=== PATIENT | female | born 1970 | race Caucasian/White ===

== ENCOUNTER 2020-01-11 20:08 | Emergency (ER) | payer OTHER, SELFPAY ==
[2020-01-11 21:18] VITALS: BP 131/85; PULSE 73; RESP 18; TEMP 37.6; O2SAT 94; BMI 46.7
--- NOTE | 2020-01-11 23:09 | ED_ITS ---
HPI - Asthma General Chief Complaint: Asthma Stated Complaint: ASTHMA Time Seen by Provider: 01/11/20 23:09 Source: patient Mode of arrival: ambulatory Limitations: no limitations History of Present Illness MD complaint: asthma attack and wheezing Onset (ago): day(s) (3) Severity: moderate Context: cleaning product exposure Associated symptoms: dry cough Asthma History: childhood onset Treatments Prior to Arrival: inhaled bronchodilator and inhaled steroid Related Data Current Asthma Therapy: inhaled bronchodilator Previous Rx's Medication Instructions Recorded prednisone 60 mg PO DAILY 5 Days #15 tab 01/11/20 Allergies Allergy/AdvReac Type Severity Reaction Status Date / Time peanut [PEANUT] Allergy Severe ANAPHYAXIS Unverified 12/06/19 19:35 Penicillins [PENICILLINS] Allergy Intermediate HIVES Unverified 12/06/19 19:35 latex [LATEX] Allergy Unknown HIVES, Unverified 12/06/19 19:35 SWELLING metronidazole [From FLAGYL] Allergy Unknown UNK Unverified 12/06/19 19:35 Review of Systems Review of Systems: Constitutional : No Fever, No Chills ENT/Mouth : No Hoarseness, No sore throat, No Rhinorrhea Eyes: No Redness, No Discharge, No Vision Changes Cardiovascular : No Chest Pain, positive SOB, positive Dyspnea on Exertion, No Edema Respiratory : positive Cough, No Sputum, positive Wheezing, Gastrointestinal : No Nausea, No Vomiting, No Diarrhea, No abdominal Pain Genitourinary : No Dysuria, No Hematuria Musculoskeletal : No joint pain, No Myalgias Skin : No rash Neuro : No Weakness, No Numbness, No Headache Psych : No anxiety, depression Heme/Lymph: No Bruising, No Bleeding Endocrine : No Polyuria, No Polydipsia All other systems reviewed and are negative [facility] Past Medical History Attestation statement: The following information was validated with the patient. Medical History Anxiety Asthma Hypothyroidism Social History Social History (Updated 01/11/20 @ 23:16 by Amie Strong DO) Alcohol intake: never Smoking Status: Former smoker Use of substances other than those prescribed or required for medical reasons: No Advance Directives: No Advance Directives Information Provided: No Physical Exam Vital Signs: Vital Signs: Vital Signs Temp Pulse Resp BP Pulse Ox 01/12/20 00:27 78 20 114/69 100 01/11/20 21:18 99.6 F 73 18 131/85 94 Body Mass Index 46.7 Appearance: Alert. Oriented X3. mild acute distress. Eyes: Pupils equal, round and reactive to light. ENT: Pharynx normal. Neck: Normal inspection. Neck supple. CVS: Normal heart rate and rhythm. Pulses normal. Respiratory: mild respiratory distress. Breath sounds decreased, moderate end exp wheezes Abdomen: Soft and nontender. Skin: Skin warm and dry. Normal skin color. Normal skin turgor. Extremities: No lower extremity edema. No calf ttp Neuro: Oriented X 3. No motor deficit. No sensory deficit. Course Course Course Narrative: negative CXR< no fevers, no infectious symptoms, chronically elevated WBC count in past 97% on RA, the patient is much improved and feels good, stable for DC home MDM - Asthma MDM Narrative Medical decision making narrative: 49 yo female with asthma triggered by cleaning products, will need labs, CXR, IV steroids, hour long 10mg neb, IV magnesium - dispo per results and improvement Lab Data Result diagrams: 01/12/20 00:24 01/11/20 23:46 Labs: Lab Results 01/11/20 01/11/20 01/11/20 Range/Units 23:29 23:46 23:46 WBC Cancelled RBC Cancelled Hgb Cancelled Hct Cancelled MCV Cancelled MCH Cancelled MCHC Cancelled RDW Cancelled Plt Count Cancelled MPV Cancelled Immature Gran % (Auto) Cancelled Neut % (Auto) Cancelled Lymph % (Auto) Cancelled [place] % (Auto) Cancelled Eos % (Auto) Cancelled Baso % (Auto) Cancelled Lymph # (Auto) Cancelled [place] # (Auto) Cancelled Eos # (Auto) Cancelled Baso # (Auto) Cancelled Abs Immat Gran (auto) Cancelled Absolute Neuts (auto) Cancelled Absolute Nucleated RBC Cancelled Nucleated RBC % (auto) Cancelled Hold Blue Top SEE NOTE Sodium 137 (135-145) mmol/L Potassium 4.2 (3.3-5.1) mmol/l Chloride 105 (96-108) mmol/L Carbon Dioxide 21 L (22-29) mmol/L Anion Gap 15 (12-20) BUN 12 (9-16) mg/dL Creatinine 0.78 (0.5-1.4) mg/dL Estim Creat Clear Calc 106.5 Estimated GFR > 60 Random Glucose 91 (60-115) mg/dL Calcium 8.7 (8.4-10.2) mg/dL 01/12/20 Range/Units 00:24 WBC 15.1 H RBC 4.44 Hgb 11.0 L Hct 34.3 L MCV 77.3 L MCH 24.8 L MCHC 32.1 RDW 16.6 H Plt Count 458 H MPV 9.6 Immature Gran % (Auto) 0.3 Neut % (Auto) 64.3 Lymph % (Auto) 17.7 L [place] % (Auto) 8.0 Eos % (Auto) 9.0 H Baso % (Auto) 0.7 Lymph # (Auto) 2.7 [place] # (Auto) 1.2 Eos # (Auto) 1.4 H Baso # (Auto) 0.1 Abs Immat Gran (auto) 0.05 H Absolute Neuts (auto) 9.7 H Absolute Nucleated RBC 0.000 Nucleated RBC % (auto) 0.0 Hold Blue Top Sodium (135-145) mmol/L Potassium (3.3-5.1) mmol/l Chloride (96-108) mmol/L Carbon Dioxide (22-29) mmol/L Anion Gap (12-20) BUN (9-16) mg/dL Creatinine (0.5-1.4) mg/dL Estim Creat Clear Calc Estimated GFR Random Glucose (60-115) mg/dL Calcium (8.4-10.2) mg/dL Critical Care Time Critical Care Time Critical Care Time: Yes Total Critical Care Time: 30 Attestation: I personally attest to this time spent taking care of the patient Discharge Plan Discharge Clinical Impression: Asthma with acute exacerbation Qualifiers: Asthma severity: moderate Asthma persistence: persistent Qualified Code(s): J45.41 - Moderate persistent asthma with (acute) exacerbation Patient Disposition: Home, Self-Care Instructions: Asthma (ED) Prescriptions: New prednisone 20 mg tablet 60 mg PO DAILY 5 Days Qty: 15 RF: 0 Referrals: Carlyn Guitérrez PA [Primary Care Provider] - 2 days (if not better) Stand Alone Forms: Work/School Release
--- NOTE | 2020-01-11 23:14 | XR_ITS ---
EXAMINATION: XR CHEST CLINICAL INFORMATION: Dyspnea COMPARISON: 11/29/2019 TECHNIQUE: Frontal view of the chest was obtained. FINDINGS: Lungs are clear. No focal consolidation or mass. Normal pulmonary vascularity. No pleural effusion or pneumothorax. Normal heart size. No acute osseous abnormality. XR/XR chest 1V IMPRESSION: No acute pulmonary disease.
[2020-01-11] MEDS: Albuterol Sulfate (0.083%) 2.5 MG/3 ML VIAL.NEB 10 MG INHALE (23:36)
[2020-01-11] MEDS: methylPREDNISolone Sod Succ/PF 125 MG/2 ML VIAL 60 MG IVPUSH (23:47)
[2020-01-11] MEDS: Magnesium Sulfate/H2O 2 GM/50 ML PIGGYBACK IV (23:48)
[2020-01-12 00:27] VITALS: BP 114/69; PULSE 78; RESP 20; O2SAT 100
[2020-01-12 00:29] LABS: MANUAL DIFF FLAG NO
[2020-01-12 00:31] LABS: Anion Gap 15 (12-20); Blood Urea Nitrogen 12 mg/dL (9-16); Carbon Dioxide 21 mmol/L (22-29); Chloride 105 mmol/L (96-108); Creatinine Clr Calc Pharmacy 106.5; Estimated Glomerular Filt Rate > 60; Glucose Random 91 mg/dL (60-115); Potassium 4.2 mmol/l (3.3-5.1); Sodium 137 mmol/L (135-145)
[2020-01-12 00:33] LABS: Basophils Absolute Auto 0.1 X10*3/uL (0.0-0.2); Basophils Percent Auto 0.7 % (0-2); Eosinophils Absolute Auto 1.4 X10*3/uL (0.0-0.4); Hematocrit 34.3 % (37-47); Imm Gran Abs Auto 0.05 X10*3/uL (0.00-0.03); Imm Gran Pct Auto 0.3 % (0.0-0.4); Lymphocytes Absolute Auto 2.7 X10*3/uL (1.2-4.9); Lymphocytes Percent Auto 17.7 % (20-40); Mean Corpuscular HGB Conc 32.1 g/dl (31.0-35.0); Mean Corpuscular Hemoglobin 24.8 pg (27.0-33.0); Mean Corpuscular Volume 77.3 fL (80-98); Mean Platelet Volume 9.6 fL (9.4-12.3); Monocytes Absolute Auto 1.2 X10*3/uL (0.1-1.2); Neutrophils Absolute Auto 9.7 X10*3/uL (2.0-8.3); Neutrophils Percent Auto 64.3 % (45-73); Platelet Count 458 X10*3/uL (160-400); Red Blood Count 4.44 X10*6/uL (4.20-5.50); Red Cell Distribution Width 16.6 % (11.0-16.0); White Blood Count 15.1 X10*3/uL (4.8-10.8)
[2020-01-12 00:34] LABS: Calcium 8.7 mg/dL (8.4-10.2)
[2020-01-12 02:00] VITALS: BP 126/61; PULSE 83; RESP 18; TEMP 36.4; O2SAT 99
== END 2020-01-12 02:50 | disposition home or self-care (01) ==
LOC: HO.ED 01-12 00:18
PROVIDERS: Emergency Provider Emergency Medicine; PCP Physician Assistant Medical
DX: J45.41 Moderate persistent asthma with (acute) exacerbation (principal); Z87.891 Personal history of nicotine dependence
CPT/HCPCS: 36415; 71045; 80048; 85025; 96365; 96366; 96375; 99284; 99291; J2930; J3475

== ENCOUNTER 2020-06-01 01:09 | Emergency (ER) | payer OTHER, SELFPAY ==
--- NOTE | ~2020-06-01 | XR_ITS ---
EXAMINATION: XR CHEST CLINICAL INFORMATION: Chest pain COMPARISON: 01/11/2020 TECHNIQUE: Frontal view of the chest was obtained. FINDINGS: Lung volumes are symmetric. No focal consolidation is seen. No evidence of pneumothorax, pleural effusion, or pulmonary edema. The cardiomediastinal contour is unremarkable. No acute osseous findings are seen. XR/XR chest 1V IMPRESSION: No acute cardiopulmonary findings.
[2020-06-01 01:15] VITALS: BP 143/83; PULSE 97; RESP 20; TEMP 36.7; O2SAT 99; BMI 48.5
--- NOTE | 2020-06-01 01:25 | ECG_ITS ---
Test Reason : CP/SOB Blood Pressure : / mmHG Vent. Rate : 092 BPM Atrial Rate : 092 BPM P-R Int : 146 ms QRS Dur : 086 ms QT Int : 354 ms P-R-T Axes : 042 046 038 degrees QTc Int : 437 ms Normal sinus rhythm Normal ECG When compared with ECG of 29-NOV-2019 07:54, No significant change was found Referred By: Tsering Gomez Electronically Signed By:Bucky Oneal
--- NOTE | 2020-06-01 01:43 | PC.NURSE ---
EKG obtained by this RN. 2 IV attempts unsuccessful, biological technical officer to attempt. MD at bedside for primary eval. Plan to medicate with Atarax and monitor labs.
[2020-06-01 03:00] VITALS: BP 143/83; PULSE 90; RESP 18; O2SAT 96
--- NOTE | 2020-06-01 03:00 | ED_ITS ---
HPI - Anxiety General Chief Complaint: Anxiety Stated Complaint: anxiety Time Seen by Provider: 06/01/20 01:25 Source: patient Mode of arrival: EMS History of Present Illness HPI narrative: This is a 49-year-old female who presents via EMS and a past medical history of asthma and thyroid condition who recently found out that her son had attempted to commit suicide by slashing his wrist and was seen and evaluated at [facility] and was admitted for 1 week and then found out on that he was HIV positive. As per the patient he informed her of his status and she became very sad and felt ?overwhelmed? because she is already caring for his 3 children whom all have varying degrees of autism. Patient states that she began feeling as though she was having an asthma attack but denied any chest pain, cough, fevers, chills, GI symptoms. Patient states that she has had another episode of anxiety in May of last year. Related Data Previous Rx's Medication Instructions Recorded prednisone 60 mg PO DAILY 5 Days #15 tab 01/11/20 prednisone 40 mg PO DAILY 4 Days #8 tab 06/01/20 Allergies Allergy/AdvReac Type Severity Reaction Status Date / Time peanut [PEANUT] Allergy Severe ANAPHYAXIS Unverified 12/06/19 19:35 Penicillins [PENICILLINS] Allergy Intermediate HIVES Unverified 12/06/19 19:35 latex [LATEX] Allergy Unknown HIVES, Unverified 12/06/19 19:35 SWELLING metronidazole [From FLAGYL] Allergy Unknown UNK Unverified 12/06/19 19:35 Review of Systems Review of Systems: Pertinent positives and negatives as stated in HPI 10 point review of systems is otherwise negative. PMFSH Past Medical History Source: nursing notes reviewed Medical History Anxiety Asthma Hypothyroidism Social History Social History Alcohol intake: never Smoking Status: Former smoker Advance Directives: No Advance Directives Information Provided: No Physical Exam Vital Signs: Vital Signs: Last Vital Signs Temp 97.7 F 06/01/20 04:00 Pulse 84 06/01/20 06:25 Resp 20 06/01/20 06:25 BP 130/70 06/01/20 04:00 Pulse Ox 93 06/01/20 06:25 Body Mass Index 48.5 VITAL SIGNS: Reviewed. GENERAL: Obese, Well developed, well nourished, mild distress. HEAD: Normocephalic/atraumatic, EYES: PERRLA, EOMI OROPHARYNX: no oral lesions noted, posterior pharynx clear NECK: Supple, no adenopathy LUNGS: Bilateral scattered expiratory wheeze without tachypnea or noted hypoxia or increased work of breathing. SpO2<99> CARDIOVASCULAR: Regular rate and rhythm without noted murmurs, no JVD or lower extremity edema. ABDOMEN: Soft, non-tender, non-distended with bowel sounds. SKIN: Inspection of the skin reveals no rashes NEUROLOGIC: Alert and oriented x 4. Course Course Course Narrative: This is a 49-year-old female with history and clinical presentation anxiety, mild asthma exacerbation, but will rule out cardiopulmonary etiologies, and low clinical suspicion for PE. In addition, patient would like to speak with someone from the crisis team and a consult will be placed. On review of all investigations and re-evaluation there are no acute findings from baseline and patient reports improvement in symptoms and is requesting at this time to be discharged and states she no longer wishes to speak with a lawn specialist as she will pursue that avenue of support through her primary care provider. She states she is feeling much better and denies any SI/HI. MDM - Anxiety Lab Data Result diagrams: 06/01/20 03:12 06/01/20 03:12 Labs: Lab Results 06/01/20 06/01/20 06/01/20 Range/Units 03:12 03:12 03:12 WBC 11.9 H (4.8-10.8) X10*3/uL RBC 4.66 (4.20-5.50) X10*6/uL Hgb 11.4 L (12.0-16.0) g/dl Hct 36.6 L (37-47) % MCV 78.5 L (80-98) fL MCH 24.5 L (27.0-33.0) pg MCHC 31.1 (31.0-35.0) g/dl RDW 16.8 H (11.0-16.0) % Plt Count 444 H (160-400) X10*3/uL MPV 9.3 L (9.4-12.3) fL Immature Gran % (Auto) 0.5 H (0.0-0.4) % Neut % (Auto) 64.9 (45-73) % Lymph % (Auto) 17.6 L (20-40) % [place] % (Auto) 7.2 (2-11) % Eos % (Auto) 9.0 H (0-4) % Baso % (Auto) 0.8 (0-2) % Lymph # (Auto) 2.1 (1.2-4.9) X10*3/uL [place] # (Auto) 0.9 (0.1-1.2) X10*3/uL Eos # (Auto) 1.1 H (0.0-0.4) X10*3/uL Baso # (Auto) 0.1 (0.0-0.2) X10*3/uL Abs Immat Gran (auto) 0.06 H (0.00-0.03) X10*3/uL Absolute Neuts (auto) 7.7 (2.0-8.3) X10*3/uL Absolute Nucleated RBC 0.000 (0.0-0.012) X10*3/uL Nucleated RBC % (auto) 0.0 (0.0-0.2) /100WBC Sodium 140 (135-145) mmol/L Potassium 3.8 (3.3-5.1) mmol/L Chloride 108 (96-108) mmol/L Carbon Dioxide 23 (22-29) mmol/L Anion Gap 13 (12-20) BUN 12 (9-16) mg/dL Creatinine 0.79 (0.5-1.4) mg/dL Estim Creat Clear Calc 107.5 Estimated GFR > 60 Random Glucose 110 (60-115) mg/dL Calcium 9.0 (8.4-10.2) mg/dL Total Bilirubin < 0.2 (0.0-1.0) mg/dL AST 15 (5-31) U/L ALT 17 (0-31) U/L Alkaline Phosphatase 66 (39-117) U/L Troponin I High Sens < 3.5 (<3.5-17.0) ng/L Total Protein 7.1 (6.5-8.0) g/dL Albumin 4.1 (3.5-5.0) g/dL COVID-19 (SEB) (Negative) COVID-19 Clin Com 06/01/20 Range/Units 03:12 WBC (4.8-10.8) X10*3/uL RBC (4.20-5.50) X10*6/uL Hgb (12.0-16.0) g/dl Hct (37-47) % MCV (80-98) fL MCH (27.0-33.0) pg MCHC (31.0-35.0) g/dl RDW (11.0-16.0) % Plt Count (160-400) X10*3/uL MPV (9.4-12.3) fL Immature Gran % (Auto) (0.0-0.4) % Neut % (Auto) (45-73) % Lymph % (Auto) (20-40) % [place] % (Auto) (2-11) % Eos % (Auto) (0-4) % Baso % (Auto) (0-2) % Lymph # (Auto) (1.2-4.9) X10*3/uL [place] # (Auto) (0.1-1.2) X10*3/uL Eos # (Auto) (0.0-0.4) X10*3/uL Baso # (Auto) (0.0-0.2) X10*3/uL Abs Immat Gran (auto) (0.00-0.03) X10*3/uL Absolute Neuts (auto) (2.0-8.3) X10*3/uL Absolute Nucleated RBC (0.0-0.012) X10*3/uL Nucleated RBC % (auto) (0.0-0.2) /100WBC Sodium (135-145) mmol/L Potassium (3.3-5.1) mmol/L Chloride (96-108) mmol/L Carbon Dioxide (22-29) mmol/L Anion Gap (12-20) BUN (9-16) mg/dL Creatinine (0.5-1.4) mg/dL Estim Creat Clear Calc Estimated GFR Random Glucose (60-115) mg/dL Calcium (8.4-10.2) mg/dL Total Bilirubin (0.0-1.0) mg/dL AST (5-31) U/L ALT (0-31) U/L Alkaline Phosphatase (39-117) U/L Troponin I High Sens (<3.5-17.0) ng/L Total Protein (6.5-8.0) g/dL Albumin (3.5-5.0) g/dL COVID-19 (SEB) Negative (Negative) COVID-19 Clin Com See Note ECG Data Attestation: I personally reviewed and interpreted this ECG as follows: Prior ECG tracings: available for review (11/29/2019 no acute changes on co mparison) Interpretation: Normal sinus rhythm, HR-92, no evidence of acute ischemia, RI/QRS/QTC are within normal limits. Discharge Plan Discharge Clinical Impression: Acute anxiety Asthma Qualifiers: Asthma severity: mild Asthma persistence: unspecified Asthma complication type: unspecified Qualified Code(s): J45.909 - Unspecified asthma, uncomplicated Patient Disposition: Home, Self-Care Instructions: Asthma (ED), Anxiety (ED) Additional Instructions: Resume all home medications as prescribed. Please follow-up with your primary care provider in the next 2-3 days. Do not hesitate to return to the emergency department should you experience any worsening of your symptoms. Prescriptions: New prednisone 20 mg tablet 40 mg PO DAILY 4 Days Qty: 8 RF: 0 No Action prednisone 20 mg tablet 60 mg PO DAILY 5 Days Qty: 15 RF: 0 Referrals: Scott Proctor MD [Primary Care Provider] - 2 days (Re-evaluation for anxiety due to current and new stressors in life.)
[2020-06-01] MEDS: hydrOXYzine HCL 25 MG TABLET PO (03:16)
--- NOTE | 2020-06-01 03:17 | PC.NURSE ---
pathological technician at bedside obtaining labs and Covid. Pt medicated per MAY. Continue to monitor.
[2020-06-01 03:20] LABS: MANUAL DIFF FLAG NO
[2020-06-01 03:25] LABS: Basophils Absolute Auto 0.1 X10*3/uL (0.0-0.2); Basophils Percent Auto 0.8 % (0-2); Eosinophils Absolute Auto 1.1 X10*3/uL (0.0-0.4); Hematocrit 36.6 % (37-47); Hemoglobin 11.4 g/dl (12.0-16.0); Imm Gran Abs Auto 0.06 X10*3/uL (0.00-0.03); Imm Gran Pct Auto 0.5 % (0.0-0.4); Lymphocytes Absolute Auto 2.1 X10*3/uL (1.2-4.9); Lymphocytes Percent Auto 17.6 % (20-40); Mean Corpuscular HGB Conc 31.1 g/dl (31.0-35.0); Mean Corpuscular Hemoglobin 24.5 pg (27.0-33.0); Mean Corpuscular Volume 78.5 fL (80-98); Mean Platelet Volume 9.3 fL (9.4-12.3); Monocytes Absolute Auto 0.9 X10*3/uL (0.1-1.2); Monocytes Percent Auto 7.2 % (2-11); Neutrophils Absolute Auto 7.7 X10*3/uL (2.0-8.3); Neutrophils Percent Auto 64.9 % (45-73); Platelet Count 444 X10*3/uL (160-400); Red Blood Count 4.66 X10*6/uL (4.20-5.50); Red Cell Distribution Width 16.8 % (11.0-16.0); White Blood Count 11.9 X10*3/uL (4.8-10.8)
[2020-06-01 03:47] LABS: COVID-19 Test Negative (Negative)
[2020-06-01 03:49] LABS: Alanine Aminotransferase 17 U/L (0-31); Albumin Level 4.1 g/dL (3.5-5.0); Alkaline Phosphatase 66 U/L (39-117); Anion Gap 13 (12-20); Aspartate Amino Transferase 15 U/L (5-31); Bilirubin Total < 0.2 mg/dL (0.0-1.0); Blood Urea Nitrogen 12 mg/dL (9-16); Carbon Dioxide 23 mmol/L (22-29); Chloride 108 mmol/L (96-108); Creatinine Clr Calc Pharmacy 107.5; Estimated Glomerular Filt Rate > 60; Glucose Random 110 mg/dL (60-115); Potassium 3.8 mmol/L (3.3-5.1); Sodium 140 mmol/L (135-145); Total Protein 7.1 g/dL (6.5-8.0)
[2020-06-01 03:53] LABS: Troponin-I High Sensitivity < 3.5 ng/L (<3.5-17.0)
[2020-06-01] MEDS: predniSONE 20 MG TABLET 40 MG PO (03:57)
[2020-06-01] MEDS: Albuterol Sulfate (0.083%) 2.5 MG/3 ML VIAL.NEB 5 MG INHALE (03:57)
[2020-06-01 04:00] VITALS: BP 130/70; PULSE 94; RESP 18; TEMP 36.5; O2SAT 97
--- NOTE | 2020-06-01 04:00 | PC.NURSE ---
Pt medicated per MAR.
--- NOTE | 2020-06-01 04:05 | PC.NURSE ---
Pt ambulating to the bathroom with a valdez/steady gait.
--- NOTE | 2020-06-01 05:16 | PC.NURSE ---
Fax to [facility].
[2020-06-01 06:25] VITALS: PULSE 84; RESP 20; O2SAT 93
--- NOTE | 2020-06-01 06:58 | PC.NURSE ---
RECEIVED REPORT FROM ALEK MONTOYA
--- NOTE | 2020-06-01 07:13 | PC.NURSE ---
REFAXED TO [facility], ACCORDING TO [facility] THEY DID NOT RECEIVE THE ORIGINAL FAX
[2020-06-01 07:45] VITALS: BP 125/71; PULSE 89; RESP 20; O2SAT 95
--- NOTE | 2020-06-01 07:50 | PC.NURSE ---
Addendum entered by Marbella Islas 06/01/20 07:59: N CALLED AND NOTIFIED THAT THE PT'S WAS DISCHARGED HOME Original Note: PT RESTING PEACEFULLY IN THE STRETCHER, RESPIRATIONS EVEN AND UNLABORED. PT REQUESTING TO GO HOME, DENIES SI/HI DOES NOT WANT TO TALK TO N ANYMORE
== END 2020-06-01 07:56 | disposition home or self-care (01) ==
PROVIDERS: Emergency Provider Student in an Organized Health Care Education/Training Program; PCP Internal Medicine
DX: F41.9 Anxiety disorder, unspecified (principal); J45.909 Unspecified asthma, uncomplicated; Z20.822 Contact with and (suspected) exposure to COVID-19; Z72.89 Other problems related to lifestyle; Z63.79 Other stressful life events affecting family and household
CPT/HCPCS: 36415; 71045; 80053; 84484; 85025; 87635; 93005; 99284

== ENCOUNTER 2020-06-21 04:50 | Emergency (ER) | payer OTHER, SELFPAY ==
[2020-06-21 04:59] VITALS: BP 139/76; PULSE 87; RESP 16; TEMP 36.8; O2SAT 97; BMI 44.1
--- NOTE | 2020-06-21 05:08 | ED_ITS ---
HPI - General Adult General Chief complaint: General Medical Stated complaint: Face Swelling Time Seen by Provider: 06/21/20 05:08 Source: patient Mode of arrival: ambulatory Limitations: no limitations History of Present Illness HPI narrative: 49-year-old female came in for evaluation of right facial swelling. This is a 49-year-old female came in had a small pimple in her right nostril 2 days ago today woke up this morning feeling scan of her right side of the face is tense with mild swelling on the right cheek. Patient declined any fever chills. Patient is known to have hypothyroidism patient is going to have blood workup ordered by her PCP this morning. Related Data Previous Rx's Medication Instructions Recorded prednisone 60 mg PO DAILY 5 Days #15 tab 01/11/20 prednisone 40 mg PO DAILY 4 Days #8 tab 06/01/20 doxycycline hyclate 100 mg PO BID #20 tab 06/21/20 Allergies Allergy/AdvReac Type Severity Reaction Status Date / Time peanut [PEANUT] Allergy Severe ANAPHYAXIS Unverified 12/06/19 19:35 Penicillins [PENICILLINS] Allergy Intermediate HIVES Unverified 12/06/19 19:35 latex [LATEX] Allergy Unknown HIVES, Unverified 12/06/19 19:35 SWELLING metronidazole [From FLAGYL] Allergy Unknown UNK Unverified 12/06/19 19:35 Review of Systems 2 Review of Systems: All other systems are reviewed and are negative Constitutional: Reports as per HPI and Reports no additional constitutional complaints Eyes: Reports as per HPI and Reports no additional eye complaints Reports system reviewed and no additional complaints, except as documented Cardiovascular: Reports as per HPI and Reports no additional cardiovascular complaints Respiratory: Reports as per HPI and Reports no additional respiratory complaints Gastrointestinal: Reports as per HPI and Reports no additional gastrointestinal complaints Genitourinary: Reports no additional female genitourinary complaints Musculoskeletal: Reports no additional musculoskeletal complaints Skin/Breast: Reports system reviewed and no additional complaints, except as docu Psychiatric: Reports no additional psychiatric complaints Endocrine: Reports no additional endocrine complaints Hematologic/Lymphatic: Reports no additional hematologic/lymphatic complaints Allergic/Immunologic: Reports no additional allergic/immunologic complaints Reports system reviewed and no additional complaints, except as documented and Reports Abnormal speech [facility] Past Medical History Medical History Anxiety Asthma Hypothyroidism Social History Social History Alcohol intake: never Smoking Status: Former smoker Advance Directives: No Advance Directives Information Provided: No Physical Exam Vital Signs: Vital Signs: Last Vital Signs Temp 98.3 F 06/21/20 04:59 Pulse 87 06/21/20 04:59 Resp 16 06/21/20 04:59 BP 139/76 06/21/20 04:59 Pulse Ox 97 06/21/20 04:59 Body Mass Index 44.1 Vital signs have been reviewed as appeared to be correct. Blood pressure normal. Heart rate normal. Respiration rate normal. Temperature normal. Oxygen saturation normal. Appearance: Alert. Oriented X3. No acute distress. Head: Normal external exam. Normocephalic. Atraumatic. No Brady signs noted. No raccoon eyes noted Eyes: PERRLA. EOMI. Conjunctiva and sclera normal. Eyelids normal. ENT: TM's Normal. Pharynx normal. Uvula midline. Moist mucous membranes. No trismus noted. No drooling noted. No muffled voice noted. Right naris with redness, hotness, no fluctuation, mild swelling over right maxillary region with mild tenderness. Neck: Normal inspection. Neck supple. FROM. No adenopathy. Thyroid Normal. No meningeal signs. No neck mass noted. CVS: Normal heart rate and rhythm. Heart sound normal. No murmurs noted. Pulses normal throughout. Respiratory: No respiratory distress. Painless inspiration. Breath sounds normal. No wheezes/rales/rhonchi noted. Chest nontender. No accessory muscle usage noted or decreased air movement noted. Abdomen: Soft and nontender. Bowel sounds normal in all 4 quadrants. No distention noted. No organomegaly noted. No visible injury noted. Back: No CVA tenderness. Full range of motion noted. Skin: Skin warm and dry. Normal skin color. Normal skin turgor. No rashes/lesions/lacerations noted. Extremities: No lower extremity edema. Extremities exhibit normal range of motion. Extremities nontender. Neuro: Oriented X 3. No motor deficit. No sensory deficit. Reflexes normal. Course Course Course Narrative: Assessment and plan. 49-year-old female came in with right facial swelling likely due to right nostril infection no SIRS criteria. Will start the patient on doxycycline and follow-up with PCP. Discharge Plan Discharge Clinical Impression: Cellulitis of face Patient Disposition: Home, Self-Care Instructions: Cellulitis (ED) Additional Instructions: Seek immediate medical attention if you have swelling of the throat, or difficulty breathing, or worsening of the facial swelling. Prescriptions: New doxycycline hyclate 100 mg tablet 100 mg PO BID Qty: 20 RF: 0 No Action prednisone 20 mg tablet 60 mg PO DAILY 5 Days Qty: 15 RF: 0 prednisone 20 mg tablet 40 mg PO DAILY 4 Days Qty: 8 RF: 0 Referrals: Physician,Unknown [Primary Care Provider] - 2 days
== END 2020-06-21 05:30 | disposition home or self-care (01) ==
PROVIDERS: Emergency Provider Emergency Medicine
DX: L03.211 Cellulitis of face (principal)
CPT/HCPCS: 99283

== ENCOUNTER 2020-08-11 17:09 | Emergency (ER) | payer OTHER, SELFPAY ==
--- NOTE | ~2020-08-11 | XR_ITS ---
EXAMINATION: XR CHEST CLINICAL INFORMATION: Shortness of breath COMPARISON: Chest x-ray 06/01/2020 TECHNIQUE: Frontal view of the chest was obtained. FINDINGS: Cardiac silhouette is normal in size. The lungs are adequately aerated. There is no lobar consolidation. No pleural effusion or pneumothorax XR/XR chest 1V IMPRESSION: Stable examination demonstrating no acute pulmonary pathology.
[2020-08-11 17:32] VITALS: BP 142/85; PULSE 93; RESP 18; TEMP 36.2; O2SAT 98; BMI 46.7
[2020-08-11 18:01] LABS: Basophils Absolute Auto 0.1 X10*3/uL (0.0-0.2); Basophils Percent Auto 0.5 % (0-2); Eosinophils Absolute Auto 1.1 X10*3/uL (0.0-0.4); Eosinophils Percent Auto 8.4 % (0-4); Hematocrit 35.8 % (37-47); Hemoglobin 11.4 g/dl (12.0-16.0); Imm Gran Abs Auto 0.07 X10*3/uL (0.00-0.03); Imm Gran Pct Auto 0.5 % (0.0-0.4); Lymphocytes Absolute Auto 1.9 X10*3/uL (1.2-4.9); MANUAL DIFF FLAG NO; Mean Corpuscular HGB Conc 31.8 g/dl (31.0-35.0); Mean Corpuscular Hemoglobin 24.7 pg (27.0-33.0); Mean Corpuscular Volume 77.5 fL (80-98); Mean Platelet Volume 9.5 fL (9.4-12.3); Monocytes Absolute Auto 0.9 X10*3/uL (0.1-1.2); Monocytes Percent Auto 6.6 % (2-11); Neutrophils Absolute Auto 8.8 X10*3/uL (2.0-8.3); Platelet Count 498 X10*3/uL (160-400); Red Blood Count 4.62 X10*6/uL (4.20-5.50); Red Cell Distribution Width 16.3 % (11.0-16.0); White Blood Count 12.8 X10*3/uL (4.8-10.8)
[2020-08-11 18:24] LABS: Anion Gap 12 (12-20); Blood Urea Nitrogen 9 mg/dL (9-16); Calcium 9.5 mg/dL (8.4-10.2); Carbon Dioxide 23 mmol/L (22-29); Chloride 106 mmol/L (96-108); Creatinine Clr Calc Pharmacy 109.3; Estimated Glomerular Filt Rate > 60; Glucose Random 106 mg/dL (60-115); Potassium 3.9 mmol/L (3.3-5.1); Sodium 137 mmol/L (135-145)
--- NOTE | 2020-08-11 20:26 | ED_ITS ---
HPI - Asthma General Chief Complaint: Asthma Stated Complaint: chest pain,sob,wheezing Source: patient Mode of arrival: ambulatory Limitations: no limitations History of Present Illness HPI Narrative: A 49-year-old female with past medical history of asthma, anxiety, hypothyroidism presents with asthma exacerbation. She was seen by her primary care physician about a week and half ago, was given a prednisone taper which she finished 2 days ago. She states that she is unable to catch her breath, is having a difficult time laying flat, and overall feels fatigued and anxious. She is unable to walk any significant distance without becoming so short of breath she has to stop. She denies fevers, chills, chest pain or pressure, palpitations, abdominal pain, abdominal distention, dysuria, hematuria, nausea, vomiting, diarrhea, constipation, and edema. Related Data Previous Rx's Medication Instructions Recorded prednisone 60 mg PO DAILY 5 Days #15 tab 01/11/20 prednisone 40 mg PO DAILY 4 Days #8 tab 06/01/20 doxycycline hyclate 100 mg PO BID #20 tab 06/21/20 Allergies Allergy/AdvReac Type Severity Reaction Status Date / Time peanut [PEANUT] Allergy Severe ANAPHYAXIS Unverified 12/06/19 19:35 Penicillins [PENICILLINS] Allergy Intermediate HIVES Unverified 12/06/19 19:35 latex [LATEX] Allergy Unknown HIVES, Unverified 12/06/19 19:35 SWELLING metronidazole [From FLAGYL] Allergy Unknown UNK Unverified 12/06/19 19:35 Review of Systems Review of Systems: Constitutional: No Fever, No Chills ENT/Mouth: No Hoarseness, No sore throat, No Rhinorrhea Eyes: No Redness, No Discharge, No Vision Changes Cardiovascular: No Chest Pain, positive SOB, positive Dyspnea on Exertion, No Edema Respiratory: positive Cough, No Sputum, positive Wheezing, Gastrointestinal: No Nausea, No Vomiting, No Diarrhea, No abdominal Pain Genitourinary: No Dysuria, No Hematuria Musculoskeletal: No joint pain, No Myalgias Skin: No rash Neuro: No Weakness, No Numbness, No Headache Psych: No anxiety, depression Heme/Lymph: No Bruising, No Bleeding Endocrine: No Polyuria, No Polydipsia Yes all other systems are reviewed and are negative PMFSH Past Medical History Attestation statement: The following information was validated with the patient. Source: old records reviewed Medical History Anxiety Asthma Hypothyroidism Social History Social History Alcohol intake: never Smoking Status: Never smoker Use of substances other than those prescribed or required for medical reasons: No Advance Directives: No Advance Directives Information Provided: Yes Patient : No Physical Exam Vital Signs: Vital Signs: Last Vital Signs Temp 98.7 F 08/11/20 23:05 Pulse 96 08/12/20 00:32 Resp 20 08/12/20 00:32 BP 133/61 08/12/20 00:32 Pulse Ox 96 08/11/20 23:05 Body Mass Index 46.7 Appearance: Alert. Oriented X3. No acute distress. Eyes: Pupils equal, round and reactive to light. ENT: Pharynx normal. Neck: Normal inspection. Neck supple. CVS: Normal heart rate and rhythm. Pulses normal. Respiratory: Tachypneic at 32 breaths per minute, in orthoptic position, decreased air flow and inspiratory and expiratory wheezing throughout all lobes. Abdomen: Soft and nontender. Skin: Skin warm and dry. Normal skin color. Normal skin turgor. Extremities: No lower extremity edema. Moves all extremities against resistance, gait well balanced well coordinated Neuro: No motor deficit. No sensory deficit. Cranial nerves 2-12 intact, no focal neural deficits, Course Course Course Narrative: Patient presents with acute asthma exacerbation, was on steroids which ended 2 days ago, will give Solu-Medrol, magnesium and hour long neb. CBC indicates leukocytosis, which was expected secondary to prednisone taper, chemistries are negative, chest x-ray negative for pneumonia or acute findings. 10:30 p.m. 1st hour long completed, patient is still really tight with poor air flow, discussion with Respiratory, plan for another hour long. Patient has been on prednisone taper, last dose 2 days ago. 12:27 a.m.. Lung sounds have improved but still diminished at the bases with wheezing throughout. Respiration rate 22-28 with minimal exertion. Discussion with hospitalist, plan to admit for asthma exacerbation. MDM - Asthma Differential Diagnosis Differential diagnosis: Likely Acute exacerbation, Acute asthmatic bronchitis, Pneumonia and Pneumothorax Medical Records Attestation: I reviewed the patient's medical records. Lab Data Attestation: I reviewed the patient's lab results. Result diagrams: 08/11/20 17:56 08/11/20 17:56 Labs: Lab Results 08/11/20 08/11/20 08/11/20 Range/Units 17:56 17:56 21:20 WBC 12.8 H (4.8-10.8) X10*3/uL RBC 4.62 (4.20-5.50) X10*6/uL Hgb 11.4 L (12.0-16.0) g/dl Hct 35.8 L (37-47) % MCV 77.5 L (80-98) fL MCH 24.7 L (27.0-33.0) pg MCHC 31.8 (31.0-35.0) g/dl RDW 16.3 H (11.0-16.0) % Plt Count 498 H (160-400) X10*3/uL MPV 9.5 (9.4-12.3) fL Immature Gran % (Auto) 0.5 H (0.0-0.4) % Neut % (Auto) 69.0 (45-73) % Lymph % (Auto) 15.0 L (20-40) % [place] % (Auto) 6.6 (2-11) % Eos % (Auto) 8.4 H (0-4) % Baso % (Auto) 0.5 (0-2) % Lymph # (Auto) 1.9 (1.2-4.9) X10*3/uL [place] # (Auto) 0.9 (0.1-1.2) X10*3/uL Eos # (Auto) 1.1 H (0.0-0.4) X10*3/uL Baso # (Auto) 0.1 (0.0-0.2) X10*3/uL Abs Immat Gran (auto) 0.07 H (0.00-0.03) X10*3/uL Absolute Neuts (auto) 8.8 H (2.0-8.3) X10*3/uL Absolute Nucleated RBC 0.000 (0.0-0.012) X10*3/uL Nucleated RBC % (auto) 0.0 (0.0-0.2) /100WBC Sodium 137 (135-145) mmol/L Potassium 3.9 (3.3-5.1) mmol/L Chloride 106 (96-108) mmol/L Carbon Dioxide 23 (22-29) mmol/L Anion Gap 12 (12-20) BUN 9 (9-16) mg/dL Creatinine 0.76 (0.5-1.4) mg/dL Estim Creat Clear Calc 109.3 Estimated GFR > 60 Random Glucose 106 (60-115) mg/dL Calcium 9.5 (8.4-10.2) mg/dL COVID-19 (SEB) Negative (Negative) COVID-19 Clin Com See Note Imaging Data Chest x-ray: Attestation: I personally reviewed and interpreted this imaging study as follows: Radiologist's impression: EXAMINATION: XR CHEST CLINICAL INFORMATION: Shortness of breath COMPARISON: Chest x-ray 06/01/2020 TECHNIQUE: Frontal view of the chest was obtained. FINDINGS: Cardiac silhouette is normal in size. The lungs are adequately aerated. There is no lobar consolidation. No pleural effusion or pneumothorax XR/XR chest 1V IMPRESSION: Stable examination demonstrating no acute pulmonary pathology. ECG Data Attestation: I personally reviewed and interpreted this ECG as follows: ECG interpretation date: 08/12/20 ECG interpretation time: 00:39 Interpretation: Vent. rate 103 BPM WA interval 140 ms QRS duration 88 ms QT/QTc 350/458 ms P-R-T axes 61 51 [address] abnormality Abnormal ECG When compared with ECG of 01-JUN-2020 01:27, No significant change was found Critical Care Time Critical Care Time Critical Care Time: Yes Total Critical Care Time: 65 Attestation: I have personally provided critical care time exclusive of time spent on separately billable procedures. Time includes review of laboratory data, radiology results, discussion with consultants, and monitoring for potential decompensation. Interventions were performed as documented. Discharge Plan Discharge Clinical Impression: Asthma with acute exacerbation Qualifiers: Asthma severity: moderate Asthma persistence: persistent Qualified Code(s): J45.41 - Moderate persistent asthma with (acute) exacerbation Patient Disposition: Admitted As Inpatient
[2020-08-11 21:16] VITALS: BP 128/98; PULSE 86; RESP 18; O2SAT 96
[2020-08-11] MEDS: methylPREDNISolone Sod Succ 125 MG/2 ML VIAL IVPUSH (21:20)
[2020-08-11] MEDS: Magnesium Sulfate/H2O 2 GM/50 ML PIGGYBACK IV (21:20)
[2020-08-11] MEDS: Albuterol Sulfate (0.083%) 2.5 MG/3 ML VIAL.NEB 7.5 MG INHALE (21:30)
[2020-08-11 21:32] VITALS: PULSE 89; O2SAT 92
[2020-08-11 21:41] LABS: COVID-19 Test Negative (Negative)
[2020-08-11] MEDS: Albuterol Sulfate (0.083%) 2.5 MG/3 ML VIAL.NEB 10 MG INHALE (22:44)
[2020-08-11 22:47] VITALS: PULSE 92; O2SAT 94
[2020-08-11 23:05] VITALS: BP 139/60; PULSE 95; RESP 16; TEMP 37.1; O2SAT 96
--- NOTE | 2020-08-12 00:31 | ECG_ITS ---
Test Reason : ASTHMA Blood Pressure : / mmHG Vent. Rate : 103 BPM Atrial Rate : 103 BPM P-R Int : 140 ms QRS Dur : 088 ms QT Int : 350 ms P-R-T Axes : 061 051 052 degrees QTc Int : 458 ms Sinus tachycardia Artifact noted, but otherwise normal EKG; When compared with ECG of 01-JUN-2020 01:27, No significant change was found Referred By: Phuong Aguayo Electronically Signed By:JONO BELTRAN
[2020-08-12 00:32] VITALS: BP 133/61; PULSE 96; RESP 20
--- NOTE | 2020-08-12 01:01 | P.HPHOSP_ITS ---
History of Present Illness Date of Service: 08/12/20 Chief Complaint: SOB 49-year-old female with a past medical history of anxiety, hypothyroidism, asthma presented to the hospital with a chief complaint of shortness of breath. Patient mentioned about 1-1 and half week ago she had similar complaints and has seen a PCP who gave prednisone for possible asthma exacerbation; last dose was 2 days ago. And she started to have shortness of breath for the past 2 days which was been gradually worsening hence decided to come to the ER for further evaluation. Denies any chest pain palpitations numbness tingling. Denies any fever chills cough. Review of all other systems is negative except mentioned above ER course: Per ER team patient noted to be in short of breath; mildly tech.ypneic; diminished lung sounds; given nebulizations, steroids, magnesium. With slight improvement. Patient not in distress. Able to speak in full sentences. Admitted for acute asthma exacerbation [facility] Medical History Anxiety Asthma Hypothyroidism Social History Alcohol intake: never Smoking Status: Never smoker Use of substances other than those prescribed or required for medical reasons: No Advance Directives: No Advance Directives Information Provided: Yes Patient : No Meds Allergies Allergy/AdvReac Type Severity Reaction Status Date / Time peanut [PEANUT] Allergy Severe ANAPHYAXIS Unverified 12/06/19 19:35 Penicillins [PENICILLINS] Allergy Intermediate HIVES Unverified 12/06/19 19:35 latex [LATEX] Allergy Unknown HIVES, Unverified 12/06/19 19:35 SWELLING metronidazole [From FLAGYL] Allergy Unknown UNK Unverified 12/06/19 19:35 Active Medications: Current Medications Generic Name Dose Route Start Last Admin Trade Name Freq PRN Reason Stop Dose Admin Acetaminophen 650 mg 08/12/20 00:31 Acetaminophen 325 Mg Tablet PO Q6H PRN Pain, Mild (Pain Scale 1-3) Albuterol/Ipratropium 3 ml 08/12/20 08:00 Albuterol/Iprat 2.5/0.5mg 3 Ml Ampul.Neb INHALE RQ4H WHILE AWAKE MAYELIN Albuterol/Ipratropium 3 ml 08/12/20 00:35 Albuterol/Iprat 2.5/0.5mg 3 Ml Ampul.Neb INHALE RQ4H PRN Shortness of Breath/Wheezing Azithromycin 500 mg 08/12/20 01:00 Azithromycin 500 Mg Tablet PO BEDTIME MAYELIN Enoxaparin Sodium 40 mg 08/12/20 01:00 Enoxaparin Sodium 40 Mg/0.4 Ml Syringe SUBCUT Q24H MAYELIN Famotidine 20 mg 08/12/20 09:00 Famotidine 20 Mg Tablet PO BID MAYELIN Methylprednisolone Sodium Succinate 40 mg 08/12/20 03:00 Methylprednisolone Sod Succ 40 Mg/Ml Vial IVPUSH Q6H MAYELIN Senna 17.2 mg 08/12/20 00:31 Sennosides 8.6 Mg Tablet PO BEDTIME PRN Constipation Sodium Chloride 3 ml 08/12/20 08:00 0.9 % Sodium Chloride Flush 3 Ml Syringe IVFLUSH QSHIFT [facility] Physical Exam Vital Signs and Narrative: Vital Signs: Last Vital Signs Temp 98.7 F 08/11/20 23:05 Pulse 95 08/11/20 23:05 Resp 16 08/11/20 23:05 BP 139/60 08/11/20 23:05 Pulse Ox 96 08/11/20 23:05 Body Mass Index 46.7 Gen: Appears be in no acute distress; able to speak in full sentences HEENT: NCAT, Moist mucosa. Pulmonary: Slightly diminished breath sounds CVS: Normal S1-S2 Abdomen: BS+, Soft, Nontender Extremities: Warm well perfused Neuro: Alert and awake. Results Labs CBC and Chem 7: 08/11/20 17:56 08/11/20 17:56 Labs: Laboratory Results - last 24 hr 08/11/20 08/11/20 08/11/20 17:56 17:56 21:20 MCV 77.5 L MCH 24.7 L MCHC 31.8 RDW 16.3 H Plt Count 498 H MPV 9.5 Immature Gran % (Auto) 0.5 H Neut % (Auto) 69.0 Lymph % (Auto) 15.0 L [place] % (Auto) 6.6 Eos % (Auto) 8.4 H Baso % (Auto) 0.5 Lymph # (Auto) 1.9 [place] # (Auto) 0.9 Eos # (Auto) 1.1 H Baso # (Auto) 0.1 Abs Immat Gran (auto) 0.07 H Absolute Neuts (auto) 8.8 H Absolute Nucleated RBC 0.000 Nucleated RBC % (auto) 0.0 Anion Gap 12 Estim Creat Clear Calc 109.3 Estimated GFR > 60 Random Glucose 106 Calcium 9.5 COVID-19 (SEB) Negative COVID-19 Clin Com See Note Imaging Radiologist's Impressions: Impressions Chest X-Ray 08/11/20 17:45 IMPRESSION: Stable examination demonstrating no acute pulmonary pathology. Assessment and Plan (1) Asthma with acute exacerbation: Qualifiers: Asthma persistence: persistent Asthma severity: moderate Qualified Code(s): J45.41 - Moderate persistent asthma with (acute) exacerbation Status: Acute 49-year-old female with a past medical history of anxiety, hypothyroidism, asthma presented to the hospital with a chief complaint of shortness of breath. Noted to be in acute asthma exacerbation. Acute asthma exacerbation: Patient had recent exacerbation about 10 days ago. Will consult pulmonology Continue Solu-Medrol 40 IV q.6h. Nebulizations standing and p.r.n. Supplemental oxygen p.r.n. Azithromycin All other chronic conditions, home medications will be continued DVT prophylaxis: Lovenox Code status: Full code
[2020-08-12] MEDS: Azithromycin 500 MG TABLET PO (01:44)
[2020-08-12] MEDS: methylPREDNISolone Sod Succ 40 MG/ML VIAL IVPUSH (01:44)
--- NOTE | 2020-08-12 01:52 | PM.EVENT ---
Event Note Date of Service: 08/12/20 Event Note: AMA note: ER called for admission for asthma exacerbation. Even before I went in to see the patient ER called back again and mentioned that patient does not to stay in the hospital and wants to leave against medical advice. ER signed the patient AMA.
--- NOTE | 2020-08-12 08:26 | MHC.CM.PN ---
Patient left AMA before he could be admitted. Case Management unable to see patient.
== END 2020-08-12 02:21 | disposition left against medical advice (07) | DRG 141 ==
LOC: HO.ED 08-12 00:32 → HO.EDOVER 08-12 01:52
PROVIDERS: Nurse Practitioner Family; Emergency Provider Student in an Organized Health Care Education/Training Program; Visit Provider Hospitalist
DX: J45.41 Moderate persistent asthma with (acute) exacerbation (principal); R06.02 Shortness of breath; R53.83 Other fatigue; Z20.822 Contact with and (suspected) exposure to COVID-19; Z79.890 Hormone replacement therapy; Z88.0 Allergy status to penicillin; Z79.899 Other long term (current) drug therapy
CPT/HCPCS: 36415; 71045; 80048; 85025; 87635; 93005; 94644; 94645; 96374; 99285; 99291; J2920; J2930; J3475

== ENCOUNTER 2020-11-08 20:27 | Emergency (ER) | payer OTHER, SELFPAY ==
--- NOTE | 2020-11-08 | ECG_ITS ---
Test Reason : SOB Blood Pressure : / mmHG Vent. Rate : 112 BPM Atrial Rate : 112 BPM P-R Int : 134 ms QRS Dur : 086 ms QT Int : 322 ms P-R-T Axes : 054 035 047 degrees QTc Int : 439 ms Sinus tachycardia Otherwise normal ECG When compared with ECG of 12-AUG-2020 00:39, No significant change was found Referred By: Christianne Brice Electronically Signed By:CLARIBEL TORO
--- NOTE | ~2020-11-08 | XR_ITS ---
EXAMINATION: XR CHEST CLINICAL INFORMATION: Shortness of breath COMPARISON: 08/11/2020 TECHNIQUE: Frontal view of the chest was obtained. FINDINGS: Cardiac leads overlie the chest. The lungs are well expanded. There is no focal consolidation, edema, or effusion. No pneumothorax. The cardiomediastinal silhouette is within normal limits. No acute osseous abnormality. XR/XR chest 1V IMPRESSION: No acute pulmonary finding.
[2020-11-08 20:38] VITALS: BP 135/80; PULSE 104; PULSE 160; RESP 8; O2SAT 100; O2SAT 97; BMI 45.5
--- NOTE | 2020-11-08 21:49 | ED_ITS ---
HPI - SOB/Dyspnea General Chief Complaint: Dyspnea Stated Complaint: asthma sob Time Seen by Provider: 11/08/20 21:46 Source: patient Mode of arrival: ambulatory Limitations: no limitations History of Present Illness HPI Narrative: Patient comes emergency room complaining of shortness of breath, asthma exacerbation. Patient states since October 26, she returned from [place], since then she has her asthma exacerbations have been very frequent, and today she had no affect to her nebulization treatment, and oral prednisone which was started yesterday. Patient states that prior to her flight returning to [place], patient was tested for COVID-19, it was negative. Patient denies fever chills. Related Data Home Medications Medication Instructions Recorded Confirmed albuterol sulfate 90 mcg/actuation 2 puff INHALATION Q4H PRN 08/12/20 08/12/20 aerosol inhaler (ProAir HFA) levothyroxine 100 mcg tablet 1 tab PO DAILY 08/12/20 08/12/20 Previous Rx's Medication Instructions Recorded albuterol sulfate 90 mcg/actuation 2 puff INHALATION Q4-6H PRN #8.5 g 11/09/20 aerosol inhaler Allergies Allergy/AdvReac Type Severity Reaction Status Date / Time peanut [PEANUT] Allergy Severe ANAPHYAXIS Unverified 12/06/19 19:35 Penicillins [PENICILLINS] Allergy Intermediate HIVES Unverified 12/06/19 19:35 latex [LATEX] Allergy Unknown HIVES, Unverified 12/06/19 19:35 SWELLING metronidazole [From FLAGYL] Allergy Unknown UNK Unverified 12/06/19 19:35 Review of Systems Review of Systems: Constitutional : No Weight loss, No Fever, No Chills, No Night Sweats, No Fatigue, No Malaise ENT/Mouth : No Hearing loss, No Ear Pain, No Nasal Congestion, No Sinus Pain, No Hoarseness, No sore throat, No Rhinorrhea, No Swallowing Difficulty Eyes: No Eye Pain, No Swelling, No Redness, No Foreign Body, No Discharge, No Vision Changes Cardiovascular : No Chest Pain, No SOB, No Dyspnea on Exertion, No Orthopnea, No Edema, No Palpitations Respiratory : No Cough, No Sputum, complaining of wheezing, dyspnea Gastrointestinal : No Nausea, No Vomiting, No Diarrhea, No Constipation, No abdominal Pain, No Hematochezia, No Melena Genitourinary : no irregular bleeding, No Dysuria, No Urinary Frequency, No Hematuria, No Urinary Incontinence, No Urgency, No Flank Pain, No Urinary Flow Changes, No Hesitancy Musculoskeletal : No joint pain, No Myalgias, No Joint Swelling Skin : No Skin Lesions, No rash Neuro : No Weakness, No Numbness, No Paresthesias, No Loss of Consciousness, No Dizziness, No Headache Psych : No Anxiety/Panic, No Depression, No SI/HI/AH/VH, No Social Issues, Heme/Lymph: No Bruising, No Bleeding,No Lymphadenopathy Endocrine : No Polyuria, No Polydipsia, No Temperature Intolerance [facility] Past Medical History Medical History Anxiety Asthma Hypothyroidism Social History Social History Alcohol intake: never Patient Tobacco Use Status: Never used Tobacco Use of substances other than those prescribed or required for medical reasons: No Advance Directives: No Advance Directives Information Provided: No Patient : No Physical Exam Vital Signs: Vital Signs: Last Vital Signs Pulse 98 11/09/20 00:00 Resp 18 11/09/20 00:00 BP 118/62 11/09/20 00:00 Pulse Ox 100 11/09/20 00:00 Oxygen Flow Rate 10 11/08/20 20:38 Body Mass Index 45.5 Const: Other: Appearance: Alert. Oriented X3. No acute distress. Eyes: Pupils equal, round and reactive to light. ENT: Pharynx normal. Neck: Normal inspection. Neck supple. No lymph nodes noted. No crepitus CVS: Normal heart rate and rhythm. Pulses normal. Normal S1 and S2 Respiratory: Speaking in full sentences, bilateral wheezing, moderate air movement Abdomen: Soft and nontender. No rigidity. No distention. good BS x4 Skin: Skin warm and dry. Normal skin color. Normal skin turgor. Extremities: No lower extremity edema. No lower extremity edema. No Lacerations. No Rash Neuro: Oriented X 3. No motor deficit. No sensory deficit. Moving all extermities. No slurred speech. Course Course Course Narrative: Patient received 1 dose of IV magnesium, Solu-Medrol, nebulization treatment hour long, on re-evaluation physical exam, patient is no longer wheezing, oxygen saturation 98% on room air. Patient states that she feels much better. Patient is requesting a prescription for albuterol pump, she has enough albuterol for her neb treatments and is also already on prednisone p.o.. Patient's white blood cell count is chronically elevated. Now even more so, patient on p.o. prednisone MDM - SOB/Dyspnea Lab Data Result diagrams: 11/08/20 23:34 11/08/20 23:34 Labs: Lab Results 11/08/20 11/08/20 11/08/20 Range/Units 23:06 23:34 23:34 WBC 17.8 H (4.8-10.8) X10*3/uL RBC 5.24 (4.20-5.50) X10*6/uL Hgb 12.5 (12.0-16.0) g/dl Hct 39.5 (37-47) % MCV 75.4 L (80-98) fL MCH 23.9 L (27.0-33.0) pg MCHC 31.6 (31.0-35.0) g/dl RDW 18.0 H (11.0-16.0) % Plt Count 550 H (160-400) X10*3/uL MPV 9.9 (9.4-12.3) fL Immature Gran % (Auto) 0.5 H (0.0-0.4) % Neut % (Auto) 67.8 (45-73) % Lymph % (Auto) 18.4 L (20-40) % [place] % (Auto) 7.8 (2-11) % Eos % (Auto) 5.0 H (0-4) % Baso % (Auto) 0.5 (0-2) % Lymph # (Auto) 3.3 (1.2-4.9) X10*3/uL [place] # (Auto) 1.4 H (0.1-1.2) X10*3/uL Eos # (Auto) 0.9 H (0.0-0.4) X10*3/uL Baso # (Auto) 0.1 (0.0-0.2) X10*3/uL Abs Immat Gran (auto) 0.08 H (0.00-0.03) X10*3/uL Absolute Neuts (auto) 12.0 H (2.0-8.3) X10*3/uL Absolute Nucleated RBC 0.000 (0.0-0.012) X10*3/uL Nucleated RBC % (auto) 0.0 (0.0-0.2) /100WBC Sodium 141 (135-145) mmol/L Potassium 4.1 (3.3-5.1) mmol/L Chloride 108 (96-108) mmol/L Carbon Dioxide 20 L (22-29) mmol/L Anion Gap 17 (12-20) BUN 13 (9-16) mg/dL Creatinine 0.81 (0.5-1.4) mg/dL Estim Creat Clear Calc 99.7 Estimated GFR > 60 Random Glucose 114 (60-115) mg/dL Calcium 9.9 (8.4-10.2) mg/dL COVID-19 (SEB) Negative (Negative) COVID-19 Clin Com See Note Imaging Data Chest x-ray: Radiologist's impression: Cardiac leads overlie the chest. The lungs are well expanded. There is no focal consolidation, edema, or effusion. No pneumothorax. The cardiomediastinal silhouette is within normal limits. No acute osseous abnormality. XR/XR chest 1V IMPRESSION: No acute pulmonary finding. Discharge Plan Discharge Clinical Impression: Asthma with acute exacerbation Qualifiers: Asthma severity: unspecified severity Asthma persistence: unspecified Qualified Code(s): J45.901 - Unspecified asthma with (acute) exacerbation Patient Disposition: Home, Self-Care Instructions: Asthma (ED) Additional Instructions: Please follow-up with your primary care physician tomorrow. If you have any worsening or new symptoms, please return to the emergency room or call 911 Prescriptions: New albuterol sulfate 90 mcg/actuation HFA aerosol inhaler 2 puff inhalation Q4-6H PRN (Reason: shortness of breath or wheezing) Qty: 8.5 RF: 0 No Action levothyroxine 100 mcg tablet 1 tab PO DAILY RF: 0 albuterol sulfate [ProAir HFA] 90 mcg/actuation HFA aerosol inhaler 2 puff inhalation Q4H PRN (Reason: wheezing) RF: 0
[2020-11-08 21:56] VITALS: PULSE 102; O2SAT 97
[2020-11-08] MEDS: Albuterol Sulfate (0.083%) 2.5 MG/3 ML VIAL.NEB 10 MG INHALE (21:56)
[2020-11-08] MEDS: methylPREDNISolone Sod Succ 125 MG/2 ML VIAL IVPUSH (23:04)
[2020-11-08] MEDS: Magnesium Sulfate/H2O 2 GM/50 ML PIGGYBACK IV (23:05)
[2020-11-08 23:28] LABS: COVID-19 Test Negative (Negative); IDNOW Serial# 9DD0AD1C
[2020-11-08 23:40] LABS: MANUAL DIFF FLAG NO
[2020-11-09] VITALS: BP 118/62; PULSE 98; RESP 18; O2SAT 100
[2020-11-09 00:03] LABS: Anion Gap 17 (12-20); Blood Urea Nitrogen 13 mg/dL (9-16); Calcium 9.9 mg/dL (8.4-10.2); Carbon Dioxide 20 mmol/L (22-29); Chloride 108 mmol/L (96-108); Creatinine Clr Calc Pharmacy 99.7; Estimated Glomerular Filt Rate > 60; Glucose Random 114 mg/dL (60-115); Potassium 4.1 mmol/L (3.3-5.1); Sodium 141 mmol/L (135-145)
[2020-11-09 00:14] LABS: Basophils Absolute Auto 0.1 X10*3/uL (0.0-0.2); Basophils Percent Auto 0.5 % (0-2); Eosinophils Absolute Auto 0.9 X10*3/uL (0.0-0.4); Hematocrit 39.5 % (37-47); Hemoglobin 12.5 g/dl (12.0-16.0); Imm Gran Abs Auto 0.08 X10*3/uL (0.00-0.03); Imm Gran Pct Auto 0.5 % (0.0-0.4); Lymphocytes Absolute Auto 3.3 X10*3/uL (1.2-4.9); Lymphocytes Percent Auto 18.4 % (20-40); Mean Corpuscular HGB Conc 31.6 g/dl (31.0-35.0); Mean Corpuscular Hemoglobin 23.9 pg (27.0-33.0); Mean Corpuscular Volume 75.4 fL (80-98); Mean Platelet Volume 9.9 fL (9.4-12.3); Monocytes Absolute Auto 1.4 X10*3/uL (0.1-1.2); Monocytes Percent Auto 7.8 % (2-11); Neutrophils Percent Auto 67.8 % (45-73); Platelet Count 550 X10*3/uL (160-400); Red Blood Count 5.24 X10*6/uL (4.20-5.50); White Blood Count 17.8 X10*3/uL (4.8-10.8)
== END 2020-11-09 00:55 | disposition home or self-care (01) ==
PROVIDERS: Emergency Provider Emergency Medicine
DX: J45.901 Unspecified asthma with (acute) exacerbation (principal); Z20.822 Contact with and (suspected) exposure to COVID-19; Z79.899 Other long term (current) drug therapy; Z79.52 Long term (current) use of systemic steroids
CPT/HCPCS: 36415; 71045; 80048; 85025; 87635; 93005; 94644; 96365; 96366; 99284; J2930; J3475

== ENCOUNTER 2020-12-02 13:19 | Emergency (ER) | payer OTHER, SELFPAY ==
--- NOTE | ~2020-12-02 | CT_ITS ---
EXAMINATION: CT HEAD WITHOUT CONTRAST (STROKE PROTOCOL) CLINICAL INFORMATION: Stroke protocol. Left-sided weakness. COMPARISON: None TECHNIQUE: Contiguous axial imaging was performed from the skull base to vertex without intravenous administration of contrast. Some images repeated due to motion. This CT examination was performed using dose optimization techniques as appropriate, variously including the following: *Automated exposure control *Adjustment of mA and/or kV according to patient size (this includes techniques or standardized protocols for targeted exams where dose is matched to indication/reason for exam; i.e. extremities or head) *Use of iterative reconstruction technique DLP: 1368 mGy-cm FINDINGS: There is no intracranial hemorrhage, hematoma, or extra-axial fluid collection. The ventricles are normal in size. There is no hydrocephalus, edema, or mass effect. The mark-white matter differentiation appears symmetric. There is no visible acute territorial infarct or mass lesion. The calvarium appears intact. There is no pneumocephalus or orbital emphysema. The visualized sinuses and middle ears and mastoid air cells show no significant mucosal thickening. There are no air-fluid levels. Report called and discussed with Dr. Deras in the emergency department at [address]/CT head for stroke IMPRESSION: No acute intracranial abnormality.
--- NOTE | ~2020-12-02 | CT_ITS ---
EXAMINATION: CT ANGIOGRAM HEAD CT ANGIOGRAM NECK CLINICAL INFORMATION: Left-sided weakness. COMPARISON: CT head from 12/02/2020. TECHNIQUE: Initial noncontrast risk management analyst imaging of the head and neck was performed. Comparison is made with noncontrast head CT from earlier today. Test bolus sequences followed by intravenous administration 70 mL of Omnipaque 350. Helical imaging was performed in the axial plane from the aortic arch to the skull vertex. Delayed postcontrast imaging of the head was also performed. The data was processed at the medical technologist blood bank's workstation for generation of MIP sequences. Angled MIPs and volume rendered reformatted images were also generated at an offline 3D workstation. Stenoses are assessed in accordance with NASCET criteria unless otherwise indicated. This CT examination was performed using dose optimization techniques as appropriate, variously including the following: *Automated exposure control. *Adjustment of mA and/or kV according to patient size (this includes techniques or standardized protocols for targeted exams where dose is matched to indication/reason for exam; i.e. extremities or head). *Use of iterative reconstruction technique. DLP: 1680 mGy-cm FINDINGS: CT Head: There is no evidence of acute intracranial hemorrhage or edematous territorial infarction. There is no abnormal attenuation within the brain parenchyma. Tobar-white matter differentiation is preserved. The ventricles are normal in size and configuration. No evidence for obstructive hydrocephalus. No abnormal mass effect or midline shift. No extra-axial fluid collections. No pathologic intra-axial enhancement or regional oligemia. No acute soft tissue or osseous abnormalities. Mild mucosal thickening of the paranasal sinuses. The mastoid air cells and middle ear cavities are clear. CT Neck: The thyroid gland and remaining cervical soft tissues are within normal limits. Moderate degenerative arthropathy of the left temporal mandibular joint. Partial chronic erosion of the maxillary left 3rd molar. Straightening of the normal cervical lordosis. Mild multilevel degenerative spondyloarthropathy of the cervical spine. CT Upper Chest: The visualized lung apices and upper mediastinum are within normal limits. Neck CTA: Evaluation of the proximal vessels is partially limited by mottling secondary to patient body habitus. Aortic Arch: Normal contour and caliber. Classic 3 vessel branching pattern of the aortic arch. Great Vessel Origins: No demonstrated significant stenosis of the branch origins. Right Common Carotid Artery: No focal stenosis or occlusion. Cervical Right Internal Carotid Artery: Normal opacification without focal stenosis or occlusion. Left Common Carotid Artery: No focal stenosis or occlusion. Cervical Left Internal Carotid Artery: Normal opacification without focal stenosis or occlusion. Cervical Right Vertebral Artery: Co-dominant. No focal stenosis or occlusion. Cervical Left Vertebral Artery: Co-dominant. No focal stenosis or occlusion. Brain CTA: Intracranial Internal Carotid Arteries: No focal stenosis or occlusion. Right Anterior Cerebral Artery: Normal A1 segment. Normal opacification of the distal JOSH segments. Left Anterior Cerebral Artery: Normal A1 segment. Normal opacification of the distal JOSH segments. Anterior Communicating Artery: Normal. Right Middle Cerebral Artery: Normal M1 segment of the MCA without focal stenosis or occlusion. Normal arborization of the distal segments. Left Middle Cerebral Artery: Normal M1 segment of the MCA without focal stenosis or occlusion. Normal arborization of the distal segments. Right Vertebral Artery: Normal V4 segment. Normal opacification of the proximal segments of the posterior inferior cerebellar artery. Left Vertebral Artery: Normal V4 segment. Normal opacification of the proximal segments of the posterior inferior cerebellar artery. Basilar Artery: The basilar artery is relatively diminutive with origins of the bilateral posterior cerebral arteries. No demonstrated focal stenos is or occlusion. Normal appearance of the proximal superior cerebellar arteries. Right Posterior Cerebral Artery: The P1 segment is diminutive. origin of the CUSTOMER EXPERIENCE ANALYST with robust opacification of the posterior communicating artery. Normal opacification of the distal CUSTOMER EXPERIENCE ANALYST segments. Left Posterior Cerebral Artery: The P1 segment is diminutive. origin of the CUSTOMER EXPERIENCE ANALYST with robust opacification of the posterior communicating artery. Normal opacification of the distal CUSTOMER EXPERIENCE ANALYST segments. Normal opacification of the superior sagittal, straight, transverse, and sigmoid sinuses. CT/CT angio head neck stroke IMPRESSION: 1. No evidence of acute intracranial hemorrhage or edematous territorial infarction. 2. CTA of the head and neck without proximal occlusion or flow-limiting stenosis. origins of the bilateral posterior cerebral arteries. This critical result was discussed with Dr. Bernard at 14:38 on 12/02/2020 and it was ascertained that the content and urgency of the report was understood at the time of direct communication.
--- NOTE | 2020-12-02 13:31 | ECG_ITS ---
Test Reason : STROKE? Blood Pressure : / mmHG Vent. Rate : 076 BPM Atrial Rate : 076 BPM P-R Int : 152 ms QRS Dur : 084 ms QT Int : 374 ms P-R-T Axes : 062 051 052 degrees QTc Int : 420 ms Normal sinus rhythm Normal ECG When compared with ECG of 08-NOV-2020 20:44, Heart rate has decreased Referred By: Maximino Sauer Electronically Signed By:CLARIBEL TORO
--- NOTE | 2020-12-02 13:41 | ED_ITS ---
HPI - Neuro Symptoms/Deficit General Chief Complaint: Stroke Stated Complaint: QUEST STROKE Time Seen by Provider: 12/02/20 13:29 Source: patient Mode of arrival: ambulatory Limitations: no limitations History of Present Illness HPI Narrative: Patient with history of migraine/TIAs in the past noticed today around 09:00 left-sided facial droop with left arm tingling and heaviness with slight right-sided headache no nausea no vomiting. Patient ambulated to the ER still feeling tingling on the left side of the face and left arm Related Data Home Medications Medication Instructions Recorded Confirmed albuterol sulfate 90 mcg/actuation 2 puff INHALATION Q4H PRN 08/12/20 08/12/20 aerosol inhaler (ProAir HFA) levothyroxine 100 mcg tablet 1 tab PO DAILY 08/12/20 08/12/20 Previous Rx's Medication Instructions Recorded albuterol sulfate 90 mcg/actuation 2 puff INHALATION Q4-6H PRN #8.5 g 11/09/20 aerosol inhaler [id number]-zaaleylhfaiyk-rzbgtsks 1 cap PO Q6H PRN #20 cap 12/02/20 50 mg-300 mg-40 mg capsule (Fioricet) sumatriptan succinate 50 mg tablet 50 mg PO Q2H PRN #10 tab 12/02/20 (Imitrex) Allergies Allergy/AdvReac Type Severity Reaction Status Date / Time peanut [PEANUT] Allergy Severe ANAPHYAXIS Verified 12/02/20 14:09 Penicillins [PENICILLINS] Allergy Intermediate HIVES Verified 12/02/20 14:09 latex [LATEX] Allergy Unknown HIVES, Verified 12/02/20 14:09 SWELLING metronidazole [From FLAGYL] Allergy Unknown UNK Verified 12/02/20 14:09 Review of Systems Review of Systems: Constitutional : No Weight loss, No Fever, No Chills ENT/Mouth : No sore throat, No Rhinorrhea Eyes: No Eye Pain, No Swelling Cardiovascular : No Chest Pain, no palpitations Respiratory : No Cough, No Sputum, no shortness of breath Gastrointestinal : no Nausea, No Vomiting, No Diarrhea, No abdominal Pain, no black stools Genitourinary : No Dysuria, No Urinary Frequency Musculoskeletal : No joint pain, No Myalgias, No Joint Swelling Skin : No Skin Lesions, No rash Neuro : + Weakness, ++ Numbness, No Dizziness, +Headache Psych : No Anxiety/Panic, No Depression Heme/Lymph: No Bruising, No Lymphadenopathy Endocrine : No Polyuria, No Polydipsia All other systems reviewed and are negative [facility] Past Medical History Medical History Anxiety Asthma Hypothyroidism Social History Social History Alcohol intake: never Patient Tobacco Use Status: Never used Tobacco Advance Directives: No Advance Directives Information Provided: No Physical Exam Vital Signs: Vital Signs: Last Vital Signs Temp 98.6 F 12/02/20 15:20 Pulse 80 12/02/20 15:20 Resp 17 12/02/20 15:20 BP 117/69 12/02/20 15:20 Pulse Ox 97 12/02/20 15:20 Body Mass Index 47.5 Appearance: Alert. Oriented X3. No acute distress. Eyes: PERRLA, No Nystagmus ENT: Pharynx normal. Oral Mucosa moist Neck: Normal inspection. Neck supple. CVS: Normal heart rate and rhythm. Pulses normal. Respiratory: No respiratory distress. Equal air entry bilateral, no wheezing/rales/rhonchi Abdomen: Soft and nontender. Bowel sounds are present, no mass palpable, no CVA tenderness Skin: Skin warm and dry. Normal skin color. Normal skin turgor. Extremities: No lower extremity edema. No calf tenderness Neuro: Oriented X 3. Left facial droop sparing forehead 4/ 5 power in left upper extremity 5/5 left lower extremity and right side normal reflexes no cerebellar signs renal 2-12 intact speech normal MDM - Neuro Symptoms/Deficit MDM Narrative Medical decision making narrative: Patient with history of migraine headaches came with left-sided paresthesias with left-sided facial droop had previous MRI in the past which were negative CTA head and neck was negative patient refused MRI at this time. Patient's symptoms improved during stay in the ER facial droop almost gone and numbness and tingling in the left hand almost gone patient feeling much better now headache much improved , will give Imitrex and discha rge patient home Lab Data Attestation: I reviewed the patient's lab results. Result diagrams: 12/02/20 14:22 12/02/20 14:22 Labs: Lab Results 12/02/20 12/02/20 12/02/20 Range/Units 13:57 14:13 14:22 WBC 14.0 H (4.8-10.8) X10*3/uL RBC 4.69 (4.20-5.50) X10*6/uL Hgb 11.4 L (12.0-16.0) g/dl Hct 35.7 L (37-47) % MCV 76.1 L (80-98) fL MCH 24.3 L (27.0-33.0) pg MCHC 31.9 (31.0-35.0) g/dl RDW 17.9 H (11.0-16.0) % Plt Count 468 H (160-400) X10*3/uL MPV 9.4 (9.4-12.3) fL Immature Gran % (Auto) 0.5 H (0.0-0.4) % Neut % (Auto) 79.2 H (45-73) % Lymph % (Auto) 8.8 L (20-40) % Ramsey % (Auto) 4.9 (2-11) % Eos % (Auto) 6.1 H (0-4) % Baso % (Auto) 0.5 (0-2) % Lymph # (Auto) 1.2 (1.2-4.9) X10*3/uL Ramsey # (Auto) 0.7 (0.1-1.2) X10*3/uL Eos # (Auto) 0.9 H (0.0-0.4) X10*3/uL Baso # (Auto) 0.1 (0.0-0.2) X10*3/uL Abs Immat Gran (auto) 0.07 H (0.00-0.03) X10*3/uL Absolute Neuts (auto) 11.1 H (2.0-8.3) X10*3/uL Absolute Nucleated RBC 0.000 (0.0-0.012) X10*3/uL Nucleated RBC % (auto) 0.0 (0.0-0.2) /100WBC PT (9.9-13.0) SEC INR (0.9-1.1) APTT (24.1-38.0) SEC Sodium (135-145) mmol/L Potassium (3.3-5.1) mmol/L Chloride (96-108) mmol/L Carbon Dioxide (22-29) mmol/L Anion Gap (12-20) BUN (9-16) mg/dL Creatinine (0.5-1.4) mg/dL Estim Creat Clear Calc Estimated GFR POC Glucose 103 (60-115) mg/dL Random Glucose (60-115) mg/dL Calcium (8.4-10.2) mg/dL COVID-19 (SEB) Negative (Negative) COVID-19 Clin Com See Note 12/02/20 12/02/20 Range/Units 14:22 14:22 WBC (4.8-10.8) X10*3/uL RBC (4.20-5.50) X10*6/uL Hgb (12.0-16.0) g/dl Hct (37-47) % MCV (80-98) fL MCH (27.0-33.0) pg MCHC (31.0-35.0) g/dl RDW (11.0-16.0) % Plt Count (160-400) X10*3/uL MPV (9.4-12.3) fL Immature Gran % (Auto) (0.0-0.4) % Neut % (Auto) (45-73) % Lymph % (Auto) (20-40) % Ramsey % (Auto) (2-11) % Eos % (Auto) (0-4) % Baso % (Auto) (0-2) % Lymph # (Auto) (1.2-4.9) X10*3/uL Ramsey # (Auto) (0.1-1.2) X10*3/uL Eos # (Auto) (0.0-0.4) X10*3/uL Baso # (Auto) (0.0-0.2) X10*3/uL Abs Immat Gran (auto) (0.00-0.03) X10*3/uL Absolute Neuts (auto) (2.0-8.3) X10*3/uL Absolute Nucleated RBC (0.0-0.012) X10*3/uL Nucleated RBC % (auto) (0.0-0.2) /100WBC PT 11.1 (9.9-13.0) SEC INR 1.0 (0.9-1.1) APTT 34.5 (24.1-38.0) SEC Sodium 136 (135-145) mmol/L Potassium 4.5 (3.3-5.1) mmol/L Chloride 105 (96-108) mmol/L Carbon Dioxide 21 L (22-29) mmol/L Anion Gap 15 (12-20) BUN 10 (9-16) mg/dL Creatinine 0.75 (0.5-1.4) mg/dL Estim Creat Clear Calc 110.6 Estimated GFR > 60 POC Glucose (60-115) mg/dL Random Glucose 102 (60-115) mg/dL Calcium 9.3 D (8.4-10.2) mg/dL COVID-19 (SEB) (Negative) COVID-19 Clin Com ECG Data Attestation: I personally reviewed and interpreted this ECG as follows: Interpretation: Normal sinus rhythm heart rate 76 beats per minute no acute ST T wave changes no acute ischemia NIH Stroke Scale Internal: Initial- Upon Arrival Level of Consciousness: Alert Level of Consciousness Questions: Answers both questions correctly Level of Consciousness Commands: Performs both tasks correctly Best Gaze: Normal Visual: No visual loss Facial Palsy: Minor paralyis Motor Arm (Right): No drift Motor Arm (Left): No drift Motor Leg (Right): No drift Motor Leg (Left): No drift Limb Ataxia: Absent Sensory: Normal Best Language: No aphasia Dysarthia: Normal Extinction and Inattention: No abnormality Score: 1 Discharge Plan Discharge Clinical Impression: Migraine headache Qualifiers: Migraine type: persistent migraine aura without cerebral infarction Status migrainosus presence: without status migrainosus Intractability: not intractable Qualified Code(s): G43.509 - Persistent migraine aura without cerebral infarction, not intractable, without status migrainosus Patient Disposition: Home, Self-Care Instructions: Migraine Headache (ED) Additional Instructions: Take medication as prescribed and follow with neurologist Prescriptions: New sumatriptan succinate [Imitrex] 50 mg tablet 50 mg PO Q2H PRN (Reason: migraine headache) Qty: 10 RF: 0 [id number]-txrsynprwlpjc-[id number] [Fioricet] 50-300-40 mg capsule 1 cap PO Q6H PRN (Reason: Headache) Qty: 20 RF: 0 No Action levothyroxine 100 mcg tablet 1 tab PO DAILY RF: 0 albuterol sulfate [ProAir HFA] 90 mcg/actuation HFA aerosol inhaler 2 puff inhalation Q4H PRN (Reason: wheezing) RF: 0 albuterol sulfate 90 mcg/actuation HFA aerosol inhaler 2 puff inhalation Q4-6H PRN (Reason: shortness of breath or wheezing) Qty: 8.5 RF: 0
[2020-12-02 13:57] VITALS: BP 117/62; PULSE 84; RESP 15; TEMP 37.1; O2SAT 97; BMI 47.5
[2020-12-02] MEDS: iohexoL 350 MG/ML 100 ML INFUS..BTL IV (13:58)
[2020-12-02 14:00] LABS: Glucose, Whole Blood 103 mg/dL (60-115)
--- NOTE | 2020-12-02 14:08 | PC.NURSE ---
pt reports decreased tingling in her L hand
[2020-12-02] MEDS: Aspirin 81 MG TAB.CHEW 324 MG PO (14:10)
[2020-12-02 14:27] LABS: MANUAL DIFF FLAG NO
[2020-12-02 14:29] LABS: Basophils Absolute Auto 0.1 X10*3/uL (0.0-0.2); Basophils Percent Auto 0.5 % (0-2); Eosinophils Absolute Auto 0.9 X10*3/uL (0.0-0.4); Eosinophils Percent Auto 6.1 % (0-4); Hematocrit 35.7 % (37-47); Hemoglobin 11.4 g/dl (12.0-16.0); Imm Gran Abs Auto 0.07 X10*3/uL (0.00-0.03); Imm Gran Pct Auto 0.5 % (0.0-0.4); Lymphocytes Absolute Auto 1.2 X10*3/uL (1.2-4.9); Lymphocytes Percent Auto 8.8 % (20-40); Mean Corpuscular HGB Conc 31.9 g/dl (31.0-35.0); Mean Corpuscular Hemoglobin 24.3 pg (27.0-33.0); Mean Corpuscular Volume 76.1 fL (80-98); Mean Platelet Volume 9.4 fL (9.4-12.3); Monocytes Absolute Auto 0.7 X10*3/uL (0.1-1.2); Monocytes Percent Auto 4.9 % (2-11); Neutrophils Absolute Auto 11.1 X10*3/uL (2.0-8.3); Neutrophils Percent Auto 79.2 % (45-73); Platelet Count 468 X10*3/uL (160-400); Red Blood Count 4.69 X10*6/uL (4.20-5.50); Red Cell Distribution Width 17.9 % (11.0-16.0)
[2020-12-02 14:37] LABS: Prothrombin Time 11.1 SEC (9.9-13.0)
[2020-12-02 14:40] LABS: Partial Thromboplastin Time 34.5 SEC (24.1-38.0)
--- NOTE | 2020-12-02 14:43 | PC.NURSE ---
pts L side of face appears to be resulting to normal, less drooping. pt has more control over facial extressions.
[2020-12-02 14:44] LABS: Anion Gap 15 (12-20); Blood Urea Nitrogen 10 mg/dL (9-16); Calcium 9.3 mg/dL (8.4-10.2); Carbon Dioxide 21 mmol/L (22-29); Chloride 105 mmol/L (96-108); Creatinine Clr Calc Pharmacy 110.6; Estimated Glomerular Filt Rate > 60; Glucose Random 102 mg/dL (60-115); Potassium 4.5 mmol/L (3.3-5.1); Sodium 136 mmol/L (135-145)
[2020-12-02 14:59] LABS: COVID-19 Test Negative (Negative)
[2020-12-02 15:20] VITALS: BP 117/69; PULSE 80; RESP 17; TEMP 37; O2SAT 97
--- NOTE | 2020-12-02 15:31 | PC.NURSE ---
pt back from MRI - unable to do the procedure as pt reports claustrophobia, offered medication and pt refused. MD white
--- NOTE | 2020-12-02 15:56 | PC.NURSE ---
pt reports s,all amount of tingling in L hand - still some weakness in L hand compared to the R.
[2020-12-02 16:15] VITALS: BP 148/71; PULSE 80; RESP 18; O2SAT 97
[2020-12-02 16:27] LABS: Glucose, Whole Blood 106 mg/dL (60-115)
--- NOTE | 2020-12-02 16:28 | PC.NURSE ---
late entry 1615. first contact with patient. walked back from BR, fully dressed. This rn changed her dressing from IV removal and just after signing papers pt became weak, less responsive and was lowered to the ground. Was unresponsive to voice for a few seconds but mantained good color and a pulse. lifted to stretcher, positioned supine and began to regain consciousness. Doc Scifarrukh and Doc Cristiane to bedside. POC 106, pt improving quickly. see VS.
[2020-12-02 16:33] VITALS: BP 133/62; PULSE 80; RESP 18; O2SAT 96
== END 2020-12-02 16:55 | disposition home or self-care (01) ==
PROVIDERS: Emergency Provider Internal Medicine; PCP Physician Assistant Medical
DX: G43.509 Persistent migraine aura without cerebral infarction, not intractable, without status migrainosus (principal); R29.701 NIHSS score 1; Z20.822 Contact with and (suspected) exposure to COVID-19; Z79.899 Other long term (current) drug therapy
CPT/HCPCS: 36415; 70450; 70496; 70498; 80048; 82947; 85025; 85610; 85730; 87635; 93005; 96372; 99284; 99285; J3030; Q9967

== ENCOUNTER 2021-02-06 16:13 | Emergency (ER) | payer OTHER, SELFPAY ==
--- NOTE | ~2021-02-06 | XR_ITS ---
EXAMINATION: XR CHEST CLINICAL INFORMATION: Shortness of breath COMPARISON: Previous chest x-ray most recent October 2020 TECHNIQUE: Frontal view of the chest was obtained. FINDINGS: No significant abnormality is noted involving the heart, lungs, mediastinum, bony thorax or soft tissues. XR/XR chest 1V IMPRESSION: Unremarkable examination.
[2021-02-06 16:34] VITALS: BP 134/78; PULSE 90; RESP 20; TEMP 36.4; O2SAT 94; BMI 46.7
== END 2021-02-06 18:43 | disposition left against medical advice (07) ==
PROVIDERS: Emergency Provider Emergency Medicine; PCP Physician Assistant Medical
DX: J45.909 Unspecified asthma, uncomplicated (principal); R06.02 Shortness of breath
CPT/HCPCS: 71045; 99282; 99283

== ENCOUNTER 2021-05-26 16:35 | Emergency (ER) | payer OTHER, SELFPAY ==
--- NOTE | ~2021-05-26 | CT_ITS ---
EXAMINATION: CT ABDOMEN AND PELVIS WITHOUT CONTRAST CLINICAL INFORMATION: Mid abdominal pain status post hernia surgery 5 years ago COMPARISON: None TECHNIQUE: Multidetector volumetric imaging was performed from the superior aspect of the liver through the pubic symphysis. Sagittal and coronal reformatted images were obtained on the technologist's workstation. This CT examination was performed using dose optimization techniques as appropriate, variously including the following: *Automated exposure control *Adjustment of mA and/or kV according to patient size (this includes techniques or standardized protocols for targeted exams where dose is matched to indication/reason for exam; i.e. extremities or head) *Use of iterative reconstruction technique DLP: 733 mGy-cm FINDINGS: LUNG BASES: The visualized lung bases are unremarkable. LIVER, GALLBLADDER, AND BILIARY TREE: The liver is enlarged measuring 18.7 cm in greatest cephalocaudad dimension and demonstrates decreased attenuation consistent with hepatic steatosis. No focal hepatic lesion or biliary ductal dilatation is present. The gallbladder has been removed. PANCREAS: Unremarkable. SPLEEN: Unremarkable. ADRENAL GLANDS: Unremarkable. KIDNEYS AND URETERS: The kidneys are normal in size, shape, and attenuation. A 1 cm posterior right mid pole renal cyst is present which measures 14 Hounsfield units in needs no further imaging or follow-up. No solid renal masses. No hydronephrosis, hydroureter, or calculi seen. No perinephric stranding. BLADDER: Unremarkable. GASTROINTESTINAL TRACT: The small and large bowel are unremarkable. The appendix is none seen with certainty but there is no evidence of appendicitis.. ABDOMINAL WALL: There is been prior abdominal wall surgery. There is a small periumbilical hernia present with diastases of the rectus muscles with forward bulging of the transverse colon. LYMPH NODES: No retroperitoneal adenopathy seen. Some moderately prominent lymph nodes are present in the cecal mesentery. VASCULAR: Unremarkable. PELVIC VISCERA: Retroverted uterus is present. There is a complex mass seen anterior to uterus which I suspect represents the cervix with some enlarged and bulky in cysts. The air present in this region is probably within the vaginal fornices. Better evaluation could be performed with pelvic ultrasound if pelvic pain is since patient's problem. OSSEOUS STRUCTURES: Unremarkable. CT/CT abdomen pelvis wo IV con IMPRESSION: 1. A definite cause for the patient's mid abdominal pain is not found. There is some diastases of the rectus muscles without gross hernia. 2. Other incidental findings described above Fleischner guidelines were followed.
[2021-05-26 16:44] VITALS: BMI 46.7
--- NOTE | 2021-05-26 16:47 | ED_ITS ---
HPI - Abdominal Pain General Chief Complaint: Abdominal Pain Stated Complaint: abd pain Time Seen by Provider: 05/26/21 16:43 Source: patient Mode of arrival: EMS Limitations: no limitations History of Present Illness HPI narrative: Patient with history of ventral hernia status post repair 5 years ago since then having abdominal pain off and on been to PCP and multiple hospitals in the past with workup negative has not seen foreign service teacher here. Comes here for similar pain it started just prior to arrival after eating at 10:00 slightly nauseated no vomiting no diarrhea patient had a normal bowel movement earlier today Related Data Home Medications Medication Instructions Recorded Confirmed albuterol sulfate 90 mcg/actuation 2 puff INHALATION Q4H PRN 08/12/20 08/12/20 aerosol inhaler (ProAir HFA) levothyroxine 100 mcg tablet 1 tab PO DAILY 08/12/20 08/12/20 Previous Rx's Medication Instructions Recorded albuterol sulfate 90 mcg/actuation 2 puff INHALATION Q4-6H PRN #8.5 g 11/09/20 aerosol inhaler [id number]-vjrojwwuhwsbo-vsmufneo 1 cap PO Q6H PRN #20 cap 12/02/20 50 mg-300 mg-40 mg capsule (Fioricet) sumatriptan succinate 50 mg tablet 50 mg PO Q2H PRN #10 tab 12/02/20 (Imitrex) dicyclomine 20 mg tablet 20 mg PO QID PRN #20 tab 05/26/21 Allergies Allergy/AdvReac Type Severity Reaction Status Date / Time peanut [PEANUT] Allergy Severe ANAPHYAXIS Verified 12/02/20 14:09 Penicillins [PENICILLINS] Allergy Intermediate HIVES Verified 12/02/20 14:09 latex [LATEX] Allergy Unknown HIVES, Verified 12/02/20 14:09 SWELLING metronidazole [From FLAGYL] Allergy Unknown UNK Verified 12/02/20 14:09 sumatriptan AdvReac Fainting Verified 12/02/20 16:51 Review of Systems Review of Systems Yes all other systems are reviewed and are negative PMFSH Past Medical History Medical History Anxiety Asthma Hypothyroidism Social History Social History Alcohol intake: never Patient Tobacco Use Status: Never used Tobacco Use of substances other than those prescribed or required for medical reasons: No Advance Directives: No Advance Directives Information Provided: No Physical Exam ED Vital Signs: Vital Signs - 24 hr 05/26/21 19:55 Pulse Rate 84 Respiratory Rate 16 Blood Pressure 115/64 Pulse Oximetry 98 BMI result Body Mass Index 46.7 Appearance: Alert. Oriented X3. No acute distress. Eyes: PERRLA, No Nystagmus ENT: Pharynx normal. Oral Mucosa moist Neck: Normal inspection. Neck supple. CVS: Normal heart rate and rhythm. Pulses normal. Respiratory: No respiratory distress. Equal air entry bilateral, no wheezing/rales/rhonchi Abdomen: Soft , tenderness in diffuse abdomen and mid abdomen no hernia palpable bowel sounds are present no rebound tenderness or guarding , no mass palpable, no CVA tenderness Skin: Skin warm and dry. Normal skin color. Normal skin turgor. Extremities: No lower extremity edema. No calf tenderness Neuro: Oriented X 3. MDM - Abdominal Pain MDM Narrative Medical decision making narrative: . Nonspecific abdominal pain CT scan negative for any acute pathology labs are stable patient advised to follow-up with foreign service teacher likely patient has IBS Lab Data Attestation: I reviewed the patient's lab results. Result diagrams: 05/26/21 17:39 05/26/21 17:39 Labs: Lab Results 05/26/21 05/26/21 05/26/21 Range/Units 17:39 17:39 18:45 WBC 9.1 (4.8-10.8) X10*3/uL RBC 4.68 (4.20-5.50) X10*6/uL Hgb 11.7 L (12.0-16.0) g/dl Hct 37.1 (37.0-47.0) % MCV 79.3 L (80.0-98.0) fL MCH 25.0 L (27.0-33.0) pg MCHC 31.5 (31.0-35.0) g/dl RDW 17.2 H (11.0-16.0) % Plt Count 472 H (160-400) X10*3/uL MPV 9.8 (9.4-12.3) fL Immature Gran % (Auto) 0.3 (0.0-0.4) % Neut % (Auto) 62.5 (45-73) % Lymph % (Auto) 17.0 L (20-40) % Stark % (Auto) 9.1 (2-11) % Eos % (Auto) 10.1 H (0-4) % Baso % (Auto) 1.0 (0-2) % Lymph # (Auto) 1.6 (1.2-4.9) X10*3/uL Stark # (Auto) 0.8 (0.1-1.2) X10*3/uL Eos # (Auto) 0.9 H (0.0-0.4) X10*3/uL Baso # (Auto) 0.1 (0.0-0.2) X10*3/uL Abs Immat Gran (auto) 0.03 (0.00-0.03) X10*3/uL Absolute Neuts (auto) 5.7 (2.0-8.3) x10*3/uL Absolute Nucleated RBC 0.000 (0.0-0.012) X10*3/uL Nucleated RBC % (auto) 0.0 (0.0-0.2) /100WBC Sodium 138 (135-145) mmol/L Potassium 3.8 (3.3-5.1) mmol/L Chloride 109 H (96-108) mmol/L Carbon Dioxide 21 L (22-29) mmol/L Anion Gap 12 (12-20) BUN 5 L (9-16) mg/dL Creatinine 0.71 (0.5-1.4) mg/dL Estim Creat Clear Calc 115.7 Estimated GFR > 60 Random Glucose 91 (60-115) mg/dL Calcium 8.8 (8.4-10.2) mg/dL Total Bilirubin 0.3 (0.0-1.0) mg/dL AST 18 (5-31) U/L ALT 19 (0-31) U/L Alkaline Phosphatase 66 (39-117) U/L Total Protein 6.5 (6.5-8.0) g/dL Albumin 3.8 (3.5-5.0) g/dL Lipase 18 (8-78) U/L Urine Color YELLOW Urine Appearance CLEAR Urine pH 6.0 (5.0-8.0) Ur Specific [place] 1.010 (1.005-1.025) Urine Protein NEG (NEG-TRACE) MG/DL Urine Glucose (UA) NEG (NEG) MG/DL Urine Ketones NEG (NEG) MG/DL Urine Blood TRACE (NEG) Urine Nitrite NEG (NEG) Ur Leukocyte Esterase NEG (NEG) Urine RBC 0-2 (0) /HPF Urine WBC 0-2 (0-4) /HPF Ur Squamous Epith Cells 1+ /LPF Urine Bacteria TRACE /LPF Discharge Plan Discharge Clinical Impression: Irritable bowel syndrome Patient Disposition: Home, Self-Care Instructions: Irritable Bowel Syndrome (ED) Additional Instructions: Abdominal pain is likely from irritable bowel syndrome no significant hernia noticed Take medication as advised for bowel spasm and follow with foreign service teacher as scheduled Prescriptions: New dicyclomine 20 mg tablet 20 mg PO QID PRN (Reason: Abdominal Discomfort) Qty: 20 0RF No Action levothyroxine 100 mcg tablet 1 tab PO DAILY 0RF albuterol sulfate [ProAir HFA] 90 mcg/actuation HFA aerosol inhaler 2 puff inhalation Q4H PRN (Reason: wheezing) 0RF albuterol sulfate 90 mcg/actuation HFA aerosol inhaler 2 puff inhalation Q4-6H PRN (Reason: shortness of breath or wheezing) Qty: 8.5 0RF sumatriptan succinate [Imitrex] 50 mg tablet 50 mg PO Q2H PRN (Reason: migraine headache) Qty: 10 0RF Rx Instructions: do not exceed 2 doses per 24 hrs [id number] [Fioricet] 50-300-40 mg capsule 1 cap PO Q6H PRN (Reason: Headache) Qty: 20 0RF Interventions: ED Discharge Assessment Last Done: 05/26/21 20:01 Discharge Date/Time: 05/26/21 20:03
[2021-05-26] MEDS: 0.9 % Sodium Chloride 1,000 ML 999 ML IV (17:24)
[2021-05-26] MEDS: Dicyclomine HCl 10 MG CAPSULE 20 MG PO (17:24)
[2021-05-26] MEDS: ondansetron HCL 4 MG/2 ML VIAL IVPUSH (17:24)
[2021-05-26 17:43] LABS: MANUAL DIFF FLAG NO
[2021-05-26 18:01] LABS: Alanine Aminotransferase 19 U/L (0-31); Albumin Level 3.8 g/dL (3.5-5.0); Alkaline Phosphatase 66 U/L (39-117); Anion Gap 12 (12-20); Aspartate Amino Transferase 18 U/L (5-31); Bilirubin Total 0.3 mg/dL (0.0-1.0); Blood Urea Nitrogen 5 mg/dL (9-16); Calcium 8.8 mg/dL (8.4-10.2); Carbon Dioxide 21 mmol/L (22-29); Chloride 109 mmol/L (96-108); Creatinine Clr Calc Pharmacy 115.7; Estimated Glomerular Filt Rate > 60; Glucose Random 91 mg/dL (60-115); Lipase 18 U/L (8-78); Potassium 3.8 mmol/L (3.3-5.1); Sodium 138 mmol/L (135-145); Total Protein 6.5 g/dL (6.5-8.0)
[2021-05-26 18:22] LABS: Basophils Absolute Auto 0.1 X10*3/uL (0.0-0.2); Eosinophils Absolute Auto 0.9 X10*3/uL (0.0-0.4); Eosinophils Percent Auto 10.1 % (0-4); Hematocrit 37.1 % (37.0-47.0); Hemoglobin 11.7 g/dl (12.0-16.0); Imm Gran Abs Auto 0.03 X10*3/uL (0.00-0.03); Imm Gran Pct Auto 0.3 % (0.0-0.4); Lymphocytes Absolute Auto 1.6 X10*3/uL (1.2-4.9); Mean Corpuscular HGB Conc 31.5 g/dl (31.0-35.0); Mean Corpuscular Volume 79.3 fL (80.0-98.0); Mean Platelet Volume 9.8 fL (9.4-12.3); Monocytes Absolute Auto 0.8 X10*3/uL (0.1-1.2); Monocytes Percent Auto 9.1 % (2-11); Neutrophils Absolute Auto 5.7 x10*3/uL (2.0-8.3); Neutrophils Percent Auto 62.5 % (45-73); Platelet Count 472 X10*3/uL (160-400); Red Blood Count 4.68 X10*6/uL (4.20-5.50); Red Cell Distribution Width 17.2 % (11.0-16.0); White Blood Count 9.1 X10*3/uL (4.8-10.8)
--- NOTE | 2021-05-26 18:24 | PC.NURSE ---
pt c/o 12/28 sharp abdominal pain that started this morning. she describes the pain as the same feeling she had when she had a hernia a few years ago. she denies headache/dizziness/sob/vomiting/diarrhea. she reports nausea. iv placed, fluids hung, meds given as documented.
[2021-05-26 18:51] LABS: Appearance Urine CLEAR; Color Urine YELLOW; Glucose Urine UA NEG (NEG); Leukocyte Esterase Urine NEG (NEG); Nitrite Urine NEG (NEG); UACC Culture Trigger NO; Urine Blood TRACE (NEG); Urine Ketones NEG (NEG); Urine Protein NEG (NEG-TRACE)
[2021-05-26 19:16] LABS: RBC Urine 0-2 /HPF (0); WBC Urine 0-2 /HPF (0-4)
[2021-05-26 19:17] LABS: Bacteria Urine TRACE /LPF; Squamous Epithelial Cell Urine 1+ /LPF
[2021-05-26] MEDS: Ketorolac Tromethamine 30 MG/ML VIAL IVPUSH (19:32)
[2021-05-26 19:55] VITALS: BP 115/64; PULSE 84; RESP 16; O2SAT 98
== END 2021-05-26 20:03 | disposition home or self-care (01) ==
PROVIDERS: Emergency Provider Internal Medicine; PCP Physician Assistant Medical
DX: K58.9 Irritable bowel syndrome, unspecified (principal); R10.9 Unspecified abdominal pain
CPT/HCPCS: 36415; 74176; 80053; 81001; 83690; 85025; 96361; 96374; 96375; 99284; 99285; J1885; J2405

== ENCOUNTER 2021-06-26 16:52 | Emergency (ER) | payer OTHER, SELFPAY ==
--- NOTE | ~2021-06-26 | XR_ITS ---
EXAMINATION: XR chest 1V CLINICAL INFORMATION: Reason for Exam Shortness of breath COMPARISON: Chest radiograph 02/06/2021 TECHNIQUE: One view of the chest XR/XR chest 1V FINDINGS/IMPRESSION: Low lung volumes with bronchovascular crowding. No focal consolidation. No pneumothorax. No pleural effusion. Ectatic or dilated ascending thoracic aorta. Heart is normal in size.
--- NOTE | ~2021-06-26 | CT_ITS ---
EXAMINATION: CT CHEST WITHOUT CONTRAST CLINICAL INFORMATION: Evaluate aorta COMPARISON: Chest radiograph 06/26/2021 TECHNIQUE: Multidetector volumetric CT imaging of the chest was done. Axial MIP volume rendering provided. Sagittal and coronal reformatted images were obtained. This CT examination was performed using dose optimization techniques as appropriate, variously including the following: *Automated exposure control *Adjustment of mA and/or kV according to patient size (this includes techniques or standardized protocols for targeted exams where dose is matched to indication/reason for exam; i.e. extremities or head) *Use of iterative reconstruction technique DLP: 437 mGy-cm FINDINGS: CHEST WALL/AXILLA: No axillary lymphadenopathy. LUNGS: Bibasilar atelectasis. MEDIASTINUM: Heart is normal in size. No mediastinal lymphadenopathy. Lack of intravenous contrast limits evaluation for hilar adenopathy. Aorta is normal in caliber with the ascending thoracic aorta measuring 2.9 cm in diameter. PLEURA: There is no pleural effusion. UPPER ABDOMEN: Hypoattenuating hepatic parenchyma suggesting hepatic steatosis. Status post cholecystectomy. Postsurgical changes at the gastroesophageal junction. Partially imaged mesh from ventral hernia repair. OSSEOUS STRUCTURES: No acute osseous abnormality. CT/CT chest wo IV con IMPRESSION: Aorta is normal in caliber with the ascending thoracic aorta measuring 2.9 cm in diameter. Hypoattenuating hepatic parenchyma suggesting hepatic steatosis.
[2021-06-26 16:58] VITALS: BP 117/79; BP 129/78; PULSE 90; RESP 18; TEMP 36.6; O2SAT 96; O2SAT 97; BMI 47.9
[2021-06-26] MEDS: Albuterol Sulfate (0.083%) 2.5 MG/3 ML VIAL.NEB 10 MG INHALE (17:29)
[2021-06-26 17:30] VITALS: PULSE 91; RESP 16; O2SAT 97
--- NOTE | 2021-06-26 17:31 | ED_ITS ---
HPI - Asthma General Chief Complaint: Asthma Stated Complaint: asthma exacerbation Time Seen by Provider: 06/26/21 17:11 Source: patient and EMS Mode of arrival: EMS Limitations: no limitations History of Present Illness HPI Narrative: This is a 50-year-old female past history asthma, hypothyroidism, anxiety presen ting to the emergency department with complaints of shortness of breath and anxiety x1 day. Patient tells me that this morning she became extremely anxious, her mother asked her to find her a white dress, patient kept asking her mother why, mother wanted her to buy her dress for when she was buried. She found her mom's very sick in a lot of pain and her mother mention that she would rather by an experienced the pain she is experiencing. Patient tells me after that she got very emotional crying, shortness of breath, felt chest tightness and started having an asthma attack, she took her inhaler with no relief. She got nervous so she called 911. Upon her arrival she appears well paramedics gave her an albuterol treatment and Solu-Medrol 125 mg x 2 IM. Patient tells me she is feeling better. She denies chest pain, nausea, vomiting, fevers, chills, recent upper respiratory infection, weakness, dizziness, headache. Patient tells me her asthma has required intubation she is regularly followed by a principal product manager. MD complaint: asthma attack Onset (ago): hour(s) (5) Severity: moderate Context: other (After an emotional event.) Associated symptoms: none Treatments Prior to Arrival: inhaled bronchodilator Related Data Home Medications Medication Instructions Recorded Confirmed albuterol sulfate 90 mcg/actuation 2 puff INHALATION Q4H PRN 08/12/20 08/12/20 aerosol inhaler (ProAir HFA) levothyroxine 100 mcg tablet 1 tab PO DAILY 08/12/20 08/12/20 Previous Rx's Medication Instructions Recorded albuterol sulfate 90 mcg/actuation 2 puff INHALATION Q4-6H PRN #8.5 g 11/09/20 aerosol inhaler [id number] 1 cap PO Q6H PRN #20 cap 12/02/20 50 mg-300 mg-40 mg capsule (Fioricet) sumatriptan succinate 50 mg tablet 50 mg PO Q2H PRN #10 tab 12/02/20 (Imitrex) dicyclomine 20 mg tablet 20 mg PO QID PRN #20 tab 05/26/21 albuterol sulfate 90 mcg/actuation 2 inh INHALATION Q4-6H PRN #1 ea 06/26/21 breath activated powder inhaler prednisone 20 mg tablet 20 mg PO DAILY 5 Days #5 tab 06/26/21 Allergies Allergy/AdvReac Type Severity Reaction Status Date / Time peanut [PEANUT] Allergy Severe ANAPHYAXIS Verified 12/02/20 14:09 Penicillins [PENICILLINS] Allergy Intermediate HIVES Verified 12/02/20 14:09 latex [LATEX] Allergy Unknown HIVES, Verified 12/02/20 14:09 SWELLING metronidazole [From FLAGYL] Allergy Unknown UNK Verified 12/02/20 14:09 sumatriptan AdvReac Fainting Verified 12/02/20 16:51 Review of Systems Review of Systems: Constitutional : No Weight loss, No Fever, No Chills, No Fatigue, No Malaise ENT/Mouth : No sore throat, No Rhinorrhea Eyes: No Eye Pain, No Swelling, No Redness Cardiovascular : No Chest Pain, + SOB, No Dyspnea on Exertion, No Orthopnea, No Edema, No Palpitations Respiratory : No Cough, No Sputum, No Wheezing Gastrointestinal : No Nausea, No Vomiting, No Diarrhea, No Constipation, No abdominal Pain, No Hematochezia, No Melena Genitourinary : No Dysuria, No Urinary Frequency, No Hematuria, Musculoskeletal : No joint pain, No Myalgias, No Joint Swelling Skin : No Skin Lesions, No rash Neuro : No Weakness, No Numbness, No Dizziness, No Headache Psych : No Anxiety/Panic, No Depression All other systems reviewed and are negative Yes all other systems are reviewed and are negative [facility] Past Medical History Attestation statement: The following information was validated with the patient. Source: old records reviewed and nursing notes reviewed Medical History Anxiety Asthma Hypothyroidism Social History Social History Alcohol intake: never Patient Tobacco Use Status: Never used Tobacco Advance Directives: No Advance Directives Information Provided: No Physical Exam Vital Signs: Vital Signs: Last Vital Signs Temp 97.2 F 06/26/21 20:27 Pulse 104 H 06/26/21 20:27 Resp 15 06/26/21 20:27 BP 146/83 H 06/26/21 20:27 Pulse Ox 97 06/26/21 20:27 BMI result Body Mass Index 47.9 Vital signs stable. Appearance: Alert.? Oriented X3.? No acute distress.? Patient emotion and tearful. Head: Normocephalic, atraumatic, no step-offs or deformities Eyes: Pupils equal, round and reactive to light.? ENT: Pharynx normal.? Neck: Normal inspection.? Neck supple.? CVS: Normal heart rate and rhythm.? Pulses normal.? Respiratory: No respiratory distress.? + diminished breath sounds bilaterally with wheezing in the left lung. No wheezing on the right. Abdomen: Soft and nontender.? Skin: Skin warm and dry.? Normal skin color.? Normal skin turgor.? Extremities: No lower extremity edema.? No calf ttp, negative Agustín bilaterally per 5/5 strength to bilateral upper and lower extremities Back: No midline tenderness, no C-spine tenderness, full range of motion, no CVA tenderness bilaterally Neuro: Oriented X 3.? No motor deficit.? No sensory deficit. CN 2-12 intact Course Reevaluation(s) Reevaluation #1: Patient noted to have a leukocytosis however this appears to be around patient's baseline. She denies fevers or chills. Patient without acute electrolyte abnormalities. Patient's TSH is slightly elevated, she will follow-up with her public bath attendant and her PCP which are currently working on changing her Synthroid does. She tells me she has follow-up with her PCP to discuss this. Chest x-ray with no focal consolidations no pleural effusion no pneumothorax. Dilated ascending aorta. A CT of the chest without contrast was done to further evaluate the dilated aorta. The chest CT shows in aorta with normal caliber with the ascending thoracic aorta measuring 2.9 cm, and hepatic steatosis. At this time patient tells me that she feels much better after treatment with albu terol. Patient tells me she is no longer short of breath, she is not experiencing any chest discomfort. She tells me the only time she is having chest discomfort was when she was short of breath, she said was discomfort not pain.Hx and PE not consistent with ACS or PE. Patient is PERC negative (her heart rate was only >100 after albuterol). She will be discharged home with albuterol inhaler, and prednisone for 5 days. Advised patient to return with new or worrisome signs and symptoms outlined them on her discharge. Patient would not like a crisis evaluation at this time. Upon discharge patient was saturating 98% with respiratory rate of 16. She appears well in no acute distress. Time: 22:34 MDM - Asthma MDM Narrative Medical decision making narrative: 1720 50 yo female presents w/ anxiety and sob which feels like her typical asthma attack X1 day. Denies SI and HI. Patient does not want to speak to crisis. Physical examination significant for decreased breath sounds bilaterally with wheezing to the left lung field. Negative Agustín bilaterally. Regular rate and rhythm. Abdomen soft nontender nondistended. Neuro nonfocal. Patient has no risk factors for PE. PERC negative. Unlikely PE/DVT. History and physical exam not consistent with ACS. Patient tells me she is not having chest pain at this time and she only felt chest pressure when she was short of breath. Unlikely pneumonia. Likely asthma exacerbation. Plan at this time is basic lab work, albuterol treatment, x-ray, covid Medical Records Attestation: I reviewed the patient's medical records. Lab Data Attestation: I reviewed the patient's lab results. Result diagrams: 06/26/21 18:55 06/26/21 18:55 Labs: Lab Results 06/26/21 06/26/21 06/26/21 Range/Units 18:49 18:49 18:55 WBC (4.8-10.8) X10*3/uL RBC (4.20-5.50) X10*6/uL Hgb (12.0-16.0) g/dl Hct (37.0-47.0) % MCV (80.0-98.0) fL MCH (27.0-33.0) pg MCHC (31.0-35.0) g/dl RDW (11.0-16.0) % Plt Count (160-400) X10*3/uL MPV (9.4-12.3) fL Immature Gran % (Auto) (0.0-0.4) % Neut % (Auto) (45-73) % Lymph % (Auto) (20-40) % Fallon % (Auto) (2-11) % Eos % (Auto) (0-4) % Baso % (Auto) (0-2) % Lymph # (Auto) (1.2-4.9) X10*3/uL Fallon # (Auto) (0.1-1.2) X10*3/uL Eos # (Auto) (0.0-0.4) X10*3/uL Baso # (Auto) (0.0-0.2) X10*3/uL Abs Immat Gran (auto) (0.00-0.03) X10*3/uL Absolute Neuts (auto) (2.0-8.3) x10*3/uL Absolute Nucleated RBC (0.0-0.012) X10*3/uL Nucleated RBC % (auto) (0.0-0.2) /100WBC Sodium 137 (135-145) mmol/L Potassium 4.2 (3.3-5.1) mmol/L Chloride 104 (96-108) mmol/L Carbon Dioxide 22 (22-29) mmol/L Anion Gap 15 (12-20) BUN 8 L D (9-16) mg/dL Creatinine 0.81 (0.5-1.4) mg/dL Estim Creat Clear Calc 102.9 Estimated GFR > 60 Random Glucose 128 H (60-115) mg/dL Calcium 9.4 D (8.4-10.2) mg/dL Magnesium 2.0 (1.6-2.6) mg/dL Total Bilirubin 0.2 (0.0-1.0) mg/dL AST 17 (5-31) U/L ALT 23 (0-31) U/L Alkaline Phosphatase 79 (39-117) U/L Total Protein 7.4 (6.5-8.0) g/dL Albumin 4.3 (3.5-5.0) g/dL TSH 18.30 H (0.32-4.0) uIU/mL Free T4 0.85 (0.71-1.85) ng/dL COVID-19 ([facility]) Negative (Negative) COVID-19 Clin Com See Note Influenza Type A ([facility]) Negative (Negative) Influenza Type B ([facility]) Negative (Negative) Influenza A & B Note See Note 06/26/21 Range/Units 18:55 WBC 14.2 H (4.8-10.8) X10*3/uL RBC 4.84 (4.20-5.50) X10*6/uL Hgb 12.0 (12.0-16.0) g/dl Hct 37.7 (37.0-47.0) % MCV 77.9 L (80.0-98.0) fL MCH 24.8 L (27.0-33.0) pg MCHC 31.8 (31.0-35.0) g/dl RDW 16.7 H (11.0-16.0) % Plt Count 477 H (160-400) X10*3/uL MPV 9.4 (9.4-12.3) fL Immature Gran % (Auto) 0.4 (0.0-0.4) % Neut % (Auto) 81.6 H (45-73) % Lymph % (Auto) 10.8 L (20-40) % Fallon % (Auto) 3.8 (2-11) % Eos % (Auto) 3.0 (0-4) % Baso % (Auto) 0.4 (0-2) % Lymph # (Auto) 1.5 (1.2-4.9) X10*3/uL Fallon # (Auto) 0.5 (0.1-1.2) X10*3/uL Eos # (Auto) 0.4 (0.0-0.4) X10*3/uL Baso # (Auto) 0.1 (0.0-0.2) X10*3/uL Abs Immat Gran (auto) 0.05 H (0.00-0.03) X10*3/uL Absolute Neuts (auto) 11.6 H (2.0-8.3) x10*3/uL Absolute Nucleated RBC 0.000 (0.0-0.012) X10*3/uL Nucleated RBC % (auto) 0.0 (0.0-0.2) /100WBC Sodium (135-145) mmol/L Potassium (3.3-5.1) mmol/L Chloride (96-108) mmol/L Carbon Dioxide (22-29) mmol/L Anion Gap (12-20) BUN (9-16) mg/dL Creatinine (0.5-1.4) mg/dL Estim Creat Clear Calc Estimated GFR Random Glucose (60-115) mg/dL Calcium (8.4-10.2) mg/dL Magnesium (1.6-2.6) mg/dL Total Bilirubin (0.0-1.0) mg/dL AST (5-31) U/L ALT (0-31) U/L Alkaline Phosphatase (39-117) U/L Total Protein (6.5-8.0) g/dL Albumin (3.5-5.0) g/dL TSH (0.32-4.0) uIU/mL Free T4 (0.71-1.85) ng/dL COVID-19 ([facility]) (Negative) COVID-19 Clin Com Influenza Type A ([facility]) (Negative) Influenza Type B ([facility]) (Negative) Influenza A & B Note Critical Care Time Critical Care Time Critical Care Time: No Discharge Plan Discharge Clinical Impression: Asthma with acute exacerbation, Anxiety Patient Disposition: Home, Self-Care Instructions: Asthma (ED), How to Use a Nebulizer (ED), How to Use a Breath- Activated Inhaler (ED), Anxiety (ED) Additional Instructions: Take your medications as prescribed. If you were prescribed antibiotics today, it is important that you take your medication to their entirety, do not skip any doses, do not finish them early. Follow-up with your primary care provider this week. Follow-up with her public bath attendant in your PCP to discuss your thyroid. Return to the emergency department with new or worsening symptoms. Such as fevers, chills, chest pain, shortness of breath, nausea, vomiting, dizziness, headache, vision changes, lethargy In case of emergency call [address]/CT chest wo con IMPRESSION: ? Aorta is normal in caliber with the ascending thoracic aorta measuring 2.9 cm in diameter. ? Hypoattenuating hepatic parenchyma suggesting hepatic steatosis. ? Prescriptions: New albuterol sulfate 90 mcg/actuation aerosol powdr breath activated 2 inh inhalation Q4-6H PRN (Reason: shortness of breath or wheezing) Qty: 1 0RF prednisone 20 mg tablet 20 mg PO DAILY 5 Days Qty: 5 0RF No Action levothyroxine 100 mcg tablet 1 tab PO DAILY 0RF albuterol sulfate [ProAir HFA] 90 mcg/actuation HFA aerosol inhaler 2 puff inhalation Q4H PRN (Reason: wheezing) 0RF albuterol sulfate 90 mcg/actuation HFA aerosol inhaler 2 puff inhalation Q4-6H PRN (Reason: shortness of breath or wheezing) Qty: 8.5 0RF sumatriptan succinate [Imitrex] 50 mg tablet 50 mg PO Q2H PRN (Reason: migraine headache) Qty: 10 0RF Rx Instructions: do not exceed 2 doses per 24 hrs [id number] [Fioricet] 50-300-40 mg capsule 1 cap PO Q6H PRN (Reason: Headache) Qty: 20 0RF dicyclomine 20 mg tablet 20 mg PO QID PRN (Reason: Abdominal Discomfort) Qty: 20 0RF Referrals: Carlyn Gutiérrez PA [Primary Care Provider] - Stand Alone Forms: Work/School Release
[2021-06-26 18:55] VITALS: BP 128/78; PULSE 102; RESP 18; TEMP 36.9; O2SAT 94
[2021-06-26 19:00] LABS: MANUAL DIFF FLAG NO
[2021-06-26 19:01] LABS: Basophils Absolute Auto 0.1 X10*3/uL (0.0-0.2); Basophils Percent Auto 0.4 % (0-2); Eosinophils Absolute Auto 0.4 X10*3/uL (0.0-0.4); Hematocrit 37.7 % (37.0-47.0); Imm Gran Abs Auto 0.05 X10*3/uL (0.00-0.03); Imm Gran Pct Auto 0.4 % (0.0-0.4); Lymphocytes Absolute Auto 1.5 X10*3/uL (1.2-4.9); Lymphocytes Percent Auto 10.8 % (20-40); Mean Corpuscular HGB Conc 31.8 g/dl (31.0-35.0); Mean Corpuscular Hemoglobin 24.8 pg (27.0-33.0); Mean Corpuscular Volume 77.9 fL (80.0-98.0); Mean Platelet Volume 9.4 fL (9.4-12.3); Monocytes Absolute Auto 0.5 X10*3/uL (0.1-1.2); Monocytes Percent Auto 3.8 % (2-11); Neutrophils Absolute Auto 11.6 x10*3/uL (2.0-8.3); Neutrophils Percent Auto 81.6 % (45-73); Platelet Count 477 X10*3/uL (160-400); Red Blood Count 4.84 X10*6/uL (4.20-5.50); Red Cell Distribution Width 16.7 % (11.0-16.0); White Blood Count 14.2 X10*3/uL (4.8-10.8)
[2021-06-26 19:16] LABS: Alanine Aminotransferase 23 U/L (0-31); Albumin Level 4.3 g/dL (3.5-5.0); Alkaline Phosphatase 79 U/L (39-117); Anion Gap 15 (12-20); Aspartate Amino Transferase 17 U/L (5-31); Bilirubin Total 0.2 mg/dL (0.0-1.0); Blood Urea Nitrogen 8 mg/dL (9-16); Calcium 9.4 mg/dL (8.4-10.2); Carbon Dioxide 22 mmol/L (22-29); Chloride 104 mmol/L (96-108); Creatinine Clr Calc Pharmacy 102.9; Estimated Glomerular Filt Rate > 60; Glucose Random 128 mg/dL (60-115); Potassium 4.2 mmol/L (3.3-5.1); Sodium 137 mmol/L (135-145); Total Protein 7.4 g/dL (6.5-8.0)
[2021-06-26 19:18] LABS: COVID-19 Test Negative (Negative); IDNOW Serial# 55D5AD1C; Influenza A Negative (Negative); Influenza B2 Negative (Negative)
[2021-06-26 20:08] LABS: Free T4 (Free Thyroxine) 0.85 ng/dL (0.71-1.85)
--- NOTE | 2021-06-26 20:19 | PC.NURSE ---
Pt requesting to go home @ this time, reports feeling better, denies pain/discomfort. PARKER notified of pts wishes.
[2021-06-26 20:27] VITALS: BP 146/83; PULSE 104; RESP 15; TEMP 36.2; O2SAT 97
[2021-06-26 22:00] VITALS: BP 131/71; PULSE 98; RESP 15; TEMP 36.7; O2SAT 98
== END 2021-06-26 22:44 | disposition home or self-care (01) ==
PROVIDERS: Physician Assistant; Emergency Provider Emergency Medicine; PCP Physician Assistant Medical
DX: J45.901 Unspecified asthma with (acute) exacerbation (principal); F41.1 Generalized anxiety disorder; F43.0 Acute stress reaction; Z20.822 Contact with and (suspected) exposure to COVID-19; Z79.899 Other long term (current) drug therapy
CPT/HCPCS: 71045; 71250; 80053; 83735; 84439; 84443; 85025; 87502; 87635; 94640; 94644; 99284

== ENCOUNTER 2022-03-23 13:37 | Emergency (ER) | payer OTHER, SELFPAY ==
[2022-03-23 13:47] VITALS: BP 132/84; PULSE 88
--- NOTE | 2022-03-23 14:27 | ED_ITS ---
HPI - General Adult General Chief complaint: Nausea/Vomiting/Diarrhea Stated complaint: N,V,WEAK Related Data Home Medications Medication Instructions Recorded Confirmed albuterol sulfate 90 mcg/actuation 2 puff inhalation Q4H PRN wheezing 08/12/20 08/12/20 aerosol inhaler (ProAir HFA) levothyroxine 100 mcg tablet 1 tab PO DAILY 08/12/20 08/12/20 Previous Rx's Medication Instructions Recorded albuterol sulfate 90 mcg/actuation 2 puff inhalation Q4-6H PRN 11/09/20 aerosol inhaler shortness of breath or wheezing #8.5 grams eovoldwfkn-ybakmfejnhaej-onqagrtc 1 cap PO Q6H PRN Headache #20 caps 12/02/20 50 mg-300 mg-40 mg capsule (Fioricet) sumatriptan succinate 50 mg tablet 50 mg PO Q2H PRN migraine headache 12/02/20 (Imitrex) #10 tabs dicyclomine 20 mg tablet 20 mg PO QID PRN Abdominal 05/26/21 Discomfort #20 tabs albuterol sulfate 90 mcg/actuation 2 inh inhalation Q4-6H PRN 06/26/21 breath activated powder inhaler shortness of breath or wheezing #1 ea prednisone 20 mg tablet 20 mg PO DAILY 5 days #5 tabs 06/26/21 Allergies Allergy/AdvReac Type Severity Reaction Status Date / Time peanut [PEANUT] Allergy Severe ANAPHYAXIS Verified 12/02/20 14:09 Penicillins [PENICILLINS] Allergy Intermediate HIVES Verified 12/02/20 14:09 latex [LATEX] Allergy Unknown HIVES, Verified 12/02/20 14:09 SWELLING metronidazole [From FLAGYL] Allergy Unknown UNK Verified 12/02/20 14:09 sumatriptan AdvReac Fainting Verified 12/02/20 16:51 PMFSH Past Medical History Medical History Anxiety Asthma Hypothyroidism Social History Social History Alcohol intake: never Patient Tobacco Use Status: Never used Tobacco Advance Directives: Yes Advance Directives Information Provided: Yes Advance Directives on File: No Physical Exam ED Vital Signs: BMI result Body Mass Index 44.9 Course Course Course Narrative: RME--51yo F w/PMHx pre-DM, anxiety, asthma, hypotyroid, c/o lightheadedness, generalized fatigue/weakness, nausea & vomiting with syncopal episode this morning while on the couch, denies head trauma. Admits checked POC and was 65 at 9AM. Per EMS POC was 90. Admits to feeling pre-syncopal at present. Reports mild MALDONADO. Denies abdominal pain, fever, chills, travel, suspcious food intake VSS in triage, ambulating w/steady gait EKG, labs, UA, IVF, orthos ordered in triage Medical Decision Making Lab Data Result Diagrams: 03/23/22 14:54 03/23/22 14:54 Labs: Lab Results 03/23/22 03/23/22 03/23/22 Range/Units 14:34 14:54 14:54 WBC 14.7 H (4.8-10.8) X10*3/uL RBC 4.92 (4.20-5.50) X10*6/uL Hgb 12.3 (12.0-16.0) g/dl Hct 38.2 (37.0-47.0) % MCV 77.6 L (80.0-98.0) fL MCH 25.0 L (27.0-33.0) pg MCHC 32.2 (31.0-35.0) g/dl RDW 16.6 H (11.0-16.0) % Plt Count 528 H (160-400) X10*3/uL MPV 9.3 L (9.4-12.3) fL Immature Gran % (Auto) 0.8 H (0.0-0.4) % Neut % (Auto) 60.3 (45-73) % Lymph % (Auto) 26.9 (20-40) % Robeson % (Auto) 6.5 (2-11) % Eos % (Auto) 4.8 H (0-4) % Baso % (Auto) 0.7 (0-2) % Lymph # (Auto) 4.0 (1.2-4.9) X10*3/uL Robeson # (Auto) 1.0 (0.1-1.2) X10*3/uL Eos # (Auto) 0.7 H (0.0-0.4) X10*3/uL Baso # (Auto) 0.1 (0.0-0.2) X10*3/uL Abs Immat Gran (auto) 0.12 H (0.00-0.03) X10*3/uL Absolute Neuts (auto) 8.8 H (2.0-8.3) x10*3/uL Absolute Nucleated RBC 0.000 (0.0-0.012) X10*3/uL Nucleated RBC % (auto) 0.0 (0.0-0.2) /100WBC Sodium 138 (135-145) mmol/L Potassium 3.7 (3.3-5.1) mmol/L Chloride 104 (96-108) mmol/L Carbon Dioxide 27 (22-29) mmol/L Anion Gap 11 L (12-20) BUN 14 (9-16) mg/dL Creatinine 0.76 (0.5-1.4) mg/dL Estim Creat Clear Calc 104.4 Estimated GFR > 60 POC Glucose 96 (60-115) mg/dL Random Glucose 95 (60-115) mg/dL Calcium 9.2 (8.4-10.2) mg/dL Magnesium 1.9 (1.6-2.6) mg/dL Total Bilirubin 0.2 (0.0-1.0) mg/dL Direct Bilirubin < 0.2 (0.0-0.5) mg/dL AST 12 (5-31) U/L ALT 12 (0-31) U/L Alkaline Phosphatase 67 (39-117) U/L Troponin I High Sens (<3.5-17.0) ng/L Total Protein 6.4 L (6.5-8.0) g/dL Albumin 3.8 (3.5-5.0) g/dL Lipase 15 (8-78) U/L COVID-19 ([facility]) (Negative) COVID-19 Clin Com Influenza Type A ([facility]) (Negative) Influenza Type B (TROY) (Negative) Influenza A & B Note 03/23/22 03/23/22 03/23/22 Range/Units 14:54 14:54 14:54 WBC (4.8-10.8) X10*3/uL RBC (4.20-5.50) X10*6/uL Hgb (12.0-16.0) g/dl Hct (37.0-47.0) % MCV (80.0-98.0) fL MCH (27.0-33.0) pg MCHC (31.0-35.0) g/dl RDW (11.0-16.0) % Plt Count (160-400) X10*3/uL MPV (9.4-12.3) fL Immature Gran % (Auto) (0.0-0.4) % Neut % (Auto) (45-73) % Lymph % (Auto) (20-40) % Robeson % (Auto) (2-11) % Eos % (Auto) (0-4) % Baso % (Auto) (0-2) % Lymph # (Auto) (1.2-4.9) X10*3/uL Robeson # (Auto) (0.1-1.2) X10*3/uL Eos # (Auto) (0.0-0.4) X10*3/uL Baso # (Auto) (0.0-0.2) X10*3/uL Abs Immat Gran (auto) (0.00-0.03) X10*3/uL Absolute Neuts (auto) (2.0-8.3) x10*3/uL Absolute Nucleated RBC (0.0-0.012) X10*3/uL Nucleated RBC % (auto) (0.0-0.2) /100WBC Sodium (135-145) mmol/L Potassium (3.3-5.1) mmol/L Chloride (96-108) mmol/L Carbon Dioxide (22-29) mmol/L Anion Gap (12-20) BUN (9-16) mg/dL Creatinine (0.5-1.4) mg/dL Estim Creat Clear Calc Estimated GFR POC Glucose (60-115) mg/dL Random Glucose (60-115) mg/dL Calcium (8.4-10.2) mg/dL Magnesium (1.6-2.6) mg/dL Total Bilirubin (0.0-1.0) mg/dL Direct Bilirubin (0.0-0.5) mg/dL AST (5-31) U/L ALT (0-31) U/L Alkaline Phosphatase (39-117) U/L Troponin I High Sens < 3.5 (<3.5-17.0) ng/L Total Protein (6.5-8.0) g/dL Albumin (3.5-5.0) g/dL Lipase (8-78) U/L COVID-19 ([facility]) Negative (Negative) COVID-19 Clin Com See Note Influenza Type A ([facility]) Negative (Negative) Influenza Type B (TROY) Negative (Negative) Influenza A & B Note See Note Discharge Plan Discharge Clinical Impression: Nausea & vomiting Patient Disposition: Elopement Prescriptions: No Action levothyroxine 100 mcg tablet 1 tab PO DAILY albuterol sulfate [ProAir HFA] 90 mcg/actuation HFA aerosol inhaler 2 puff inhalation Q4H PRN (Reason: wheezing) albuterol sulfate 90 mcg/actuation HFA aerosol inhaler 2 puff inhalation Q4-6H PRN (Reason: shortness of breath or wheezing) Qty: 8.5 0RF sumatriptan succinate [Imitrex] 50 mg tablet 50 mg PO Q2H PRN (Reason: migraine headache) Qty: 10 0RF Rx Instructions: do not exceed 2 doses per 24 hrs ghirbytgzi-etzuhrdbosvsj-lecf [Fioricet] 50-300-40 mg capsule 1 cap PO Q6H PRN (Reason: Headache) Qty: 20 0RF dicyclomine 20 mg tablet 20 mg PO QID PRN (Reason: Abdominal Discomfort) Qty: 20 0RF albuterol sulfate 90 mcg/actuation aerosol powdr breath activated 2 inh inhalation Q4-6H PRN (Reason: shortness of breath or wheezing) Qty: 1 0 RF prednisone 20 mg tablet 20 mg PO DAILY 5 Days Qty: 5 0RF Interventions: ED Discharge Assessment Last Done: 03/23/22 21:03 Discharge Date/Time: 03/23/22 21:13
[2022-03-23 14:28] VITALS: BP 150/76; PULSE 81; RESP 20; TEMP 36.1; O2SAT 97; BMI 44.9
--- NOTE | 2022-03-23 14:29 | ECG_ITS ---
Test Reason : WEAKNESS Blood Pressure : / mmHG Vent. Rate : 072 BPM Atrial Rate : 072 BPM P-R Int : 138 ms QRS Dur : 082 ms QT Int : 360 ms P-R-T Axes : 057 027 037 degrees QTc Int : 394 ms Normal sinus rhythm Normal ECG When compared with ECG of 02-DEC-2020 14:03, No significant change was found Referred By: Amy Bahena Electronically Signed By:JONO BELTRAN
[2022-03-23 15:01] LABS: MANUAL DIFF FLAG NO
[2022-03-23 15:04] LABS: Basophils Absolute Auto 0.1 X10*3/uL (0.0-0.2); Basophils Percent Auto 0.7 % (0-2); Eosinophils Absolute Auto 0.7 X10*3/uL (0.0-0.4); Eosinophils Percent Auto 4.8 % (0-4); Hematocrit 38.2 % (37.0-47.0); Hemoglobin 12.3 g/dl (12.0-16.0); Imm Gran Abs Auto 0.12 X10*3/uL (0.00-0.03); Imm Gran Pct Auto 0.8 % (0.0-0.4); Lymphocytes Percent Auto 26.9 % (20-40); Mean Corpuscular HGB Conc 32.2 g/dl (31.0-35.0); Mean Corpuscular Volume 77.6 fL (80.0-98.0); Mean Platelet Volume 9.3 fL (9.4-12.3); Monocytes Percent Auto 6.5 % (2-11); Neutrophils Absolute Auto 8.8 x10*3/uL (2.0-8.3); Neutrophils Percent Auto 60.3 % (45-73); Platelet Count 528 X10*3/uL (160-400); Red Blood Count 4.92 X10*6/uL (4.20-5.50); Red Cell Distribution Width 16.6 % (11.0-16.0); White Blood Count 14.7 X10*3/uL (4.8-10.8)
[2022-03-23 15:20] LABS: IDNOW Serial# 6674DD1D; Influenza A Negative (Negative); Influenza B2 Negative (Negative)
[2022-03-23 15:22] LABS: Glucose, Whole Blood 96 mg/dL (60-115)
[2022-03-23 15:26] LABS: Alanine Aminotransferase 12 U/L (0-31); Albumin Level 3.8 g/dL (3.5-5.0); Alkaline Phosphatase 67 U/L (39-117); Anion Gap 11 (12-20); Aspartate Amino Transferase 12 U/L (5-31); Bilirubin Direct < 0.2 mg/dL (0.0-0.5); Bilirubin Total 0.2 mg/dL (0.0-1.0); Blood Urea Nitrogen 14 mg/dL (9-16); Calcium 9.2 mg/dL (8.4-10.2); Carbon Dioxide 27 mmol/L (22-29); Chloride 104 mmol/L (96-108); Creatinine Clr Calc Pharmacy 104.4; Estimated Glomerular Filt Rate > 60; Glucose Random 95 mg/dL (60-115); Lipase 15 U/L (8-78); Magnesium 1.9 mg/dL (1.6-2.6); Potassium 3.7 mmol/L (3.3-5.1); Sodium 138 mmol/L (135-145); Total Protein 6.4 g/dL (6.5-8.0)
[2022-03-23 15:29] LABS: COVID-19 Test Negative (Negative); IDNOW Serial# 16C4AD1C
[2022-03-23 15:38] LABS: Troponin-I High Sensitivity < 3.5 ng/L (<3.5-17.0)
--- NOTE | 2022-03-23 21:02 | PC.NURSE ---
not in waiting room at this time.
== END 2022-03-23 21:13 | disposition left against medical advice (07) ==
PROVIDERS: Physician Assistant; Emergency Provider Emergency Medicine
DX: R11.2 Nausea with vomiting, unspecified (principal); Z20.822 Contact with and (suspected) exposure to COVID-19
CPT/HCPCS: 36415; 80048; 80076; 82947; 83690; 83735; 84484; 85025; 87502; 87635; 93005; 99282; 99283

== ENCOUNTER 2022-12-18 13:30 | Emergency (ER) | payer OTHER, SELFPAY ==
[2022-12-18 13:37] VITALS: BP 127/71; BP 137/83; PULSE 71; PULSE 74; RESP 16; TEMP 36.1; O2SAT 98; O2SAT 99; BMI 46.1
--- NOTE | 2022-12-18 13:57 | ED_ITS ---
HPI - Dizziness General Chief Complaint: Dizziness Stated Complaint: DIZZINESS Time Seen by Provider: 12/18/22 13:44 Source: patient and EMS Mode of arrival: EMS Limitations: no limitations History of Present Illness HPI Narrative: 52 yo female with history of NIDDM, hypothyroidism, vertigo here with complaints of dizziness and nausea which is worsened with head movement and body position changes since last evening at 10pm. Patient reports history of vertigo and this feels similar. She does tell me that she has had a cough which she contributes to her asthma and tells me that she has not had any recent cough or cold symptoms. She tells me that typically this season changes affect her asthma and she has had to use her inhaler more frequently recently. She denies any chest pain, shortness of breath, URI symptoms, vomiting, diarrhea, headache, fevers, neck pain or neck stiffness. Related Data Home Medications Medication Instructions Recorded Confirmed albuterol sulfate 90 mcg/actuation 2 puff inhalation Q4H PRN wheezing 08/12/20 08/12/20 aerosol inhaler (ProAir HFA) levothyroxine 100 mcg tablet 1 tab PO DAILY 08/12/20 08/12/20 Previous Rx's Medication Instructions Recorded albuterol sulfate 90 mcg/actuation 2 puff inhalation Q4-6H PRN 11/09/20 aerosol inhaler shortness of breath or wheezing #8.5 grams lfymeakexw-fptjdlnbwjzdz-slbprexr 1 cap PO Q6H PRN Headache #20 caps 12/02/20 50 mg-300 mg-40 mg capsule (Fioricet) sumatriptan succinate 50 mg tablet 50 mg PO Q2H PRN migraine headache 12/02/20 (Imitrex) #10 tabs dicyclomine 20 mg tablet 20 mg PO QID PRN Abdominal 05/26/21 Discomfort #20 tabs albuterol sulfate 90 mcg/actuation 2 inh inhalation Q4-6H PRN 06/26/21 breath activated powder inhaler shortness of breath or wheezing #1 ea prednisone 20 mg tablet 20 mg PO DAILY 5 days #5 tabs 06/26/21 meclizine 50 mg tablet 50 mg PO TID PRN dizziness #15 tabs 12/18/22 Allergies Allergy/AdvReac Type Severity Reaction Status Date / Time peanut [PEANUT] Allergy Severe ANAPHYAXIS Verified 12/02/20 14:09 Penicillins [PENICILLINS] Allergy Intermediate HIVES Verified 12/02/20 14:09 latex [LATEX] Allergy Unknown HIVES, Verified 12/02/20 14:09 SWELLING metronidazole [From FLAGYL] Allergy Unknown UNK Verified 12/02/20 14:09 sumatriptan AdvReac Fainting Verified 12/02/20 16:51 Review of Systems Review of Systems: Yes all other systems are reviewed and are negative Constitutional: Constitutional: Reports no additional constitutional complaints, Denies body ache(s), Denies chills, Denies fever(s), Denies headache(s) and Denies weakness Eyes: Eyes: Reports no additional eye complaints and Denies change in vision ENT: Reports system reviewed and no additional complaints, except as documented, Reports dizziness, Denies headache(s), Denies nasal congestion, Denies nasal discharge and Denies neck pain Cardiovascular: Cardiovascular: Reports no additional cardiovascular complaints, Denies chest pain, Denies leg edema and Denies dyspnea Respiratory: Respiratory: Reports no additional respiratory complaints, Denies cough and Denies dyspnea Gastrointestinal: Gastrointestinal: Reports no additional gastrointestinal complaints, Denies abdominal pain, Denies diarrhea, Denies nausea and Denies vomiting Genitourinary: Genitourinary: Reports no additional female genitourinary complaints and Denies urinary incontinence Musculoskeletal: Musculoskeletal: Reports no additional musculoskeletal complaints, Denies back pain, Denies arthralgias, Denies joint swelling, Denies neck pain, Denies numbness and Denies tingling Integumentary/Breasts: Skin/Breast: Reports system reviewed and no additional complaints, except as docu and Denies rash Neurologic: Reports system reviewed and no additional complaints, except as documented, Denies Abnormal speech present, Reports dizziness, Denies headache(s), Denies numbness, Denies tingling and Denies weakness PMFSH Past Medical History Attestation statement: The following information was validated with the patient. Source: old records reviewed and nursing notes reviewed Medical History Anxiety Hypothyroidism Asthma Social History Social History Alcohol intake: never Patient Tobacco Use Status: Never used Tobacco Advance Directives: Yes Advance Directives Information Provided: No Advance Directives on File: No Patient : No Physical Exam Vital Signs: Vital Signs: Last Vital Signs Temp 96.9 F 12/18/22 13:37 Pulse 71 12/18/22 13:37 Resp 16 12/18/22 13:37 BP 127/71 12/18/22 13:37 Pulse Ox 98 12/18/22 13:37 O2 Del Method Room Air 12/18/22 13:37 BMI result Body Mass Index 46.1 Const: General: cooperative, healthy appearing, comfortable and no acute distress Orientation/consciousness: patient oriented x3 Limitations: no limitations HEENT: Head: Yes normal to inspection Ears: hearing grossly normal bilaterally and TM abnormal bulging; not erythematous General nose exam: Normal external nose present Face and sinus: Yes normal facial exam Mouth: Normal oral and palatal mucosa present Throat: Yes posterior oropharynx normal Eyes: General: appearance normal, both eyes and all related structures Pupils: Equal, round and reactive pupils present Neck: Neck: Yes normal visual inspection, Yes full ROM and Yes no lymphadenopa thy Chest: Chest palpation & inspection: normal inspection of the chest Resp: Effort & Inspection: normal respiratory effort Auscultation: clear to auscultation bilaterally Cardio: Rate: regular rate Rhythm: regular rhythm Peripheral pulses: Peripheral pulses 2+ throughout GI: Inspection: Yes normal to inspection Palpation (GI): Soft to palpation and nontender Auscultation: normal bowel sounds Back/Spine/Pelvis: Thoracic/Lumbar Spine: thoracic and lumbar spine normal to inspection Skin: General skin exam: no rashes or lesions noted Neuro: General: patient oriented x3, moves all extremities, no focal motor deficits and normal sensation to monofilament Cranial nerves: Yes CN's II-XII intact bilaterally, Yes Equal, round and reactive pupils present, Yes Bilaterally intact EOM present, Yes Nystagmus not present, Yes Normal facial strength present and Yes Midline tongue present Cognition (Neuro): normal cognition Speech: No Abnormal speech present Gait exam (Neuro): Normal gait present Motor exam (neuro): 5/5 motor strength present throughout Sensory Exam: Normal double simultaneous stimulation for sensation Coordination: dttglq-vd-urxr test normal, plhf-ke-rcoz test normal and tandem gait normal Extrem: General: Yes normal to inspection NIH Stroke Scale Internal: Initial- Upon Arrival Level of Consciousness: Alert Level of Consciousness Questions: Answers both questions correctly Level of Consciousness Commands: Performs both tasks correctly Best Gaze: Normal Visual: No visual loss Facial Palsy: Normal Motor Arm (Right): No drift Motor Arm (Left): No drift Motor Leg (Right): No drift Motor Leg (Left): No drift Limb Ataxia: Absent Sensory: Normal Best Language: No aphasia Dysarthia: Normal Extinction and Inattention: No abnormality Score: 0 Course Course Course Narrative: 1 hr post meclizine patient reports symptoms are improved. Able to get up and ambulate with a steady gait with no difficulty. Will discharge home with prn meclizine. Reviewed worrisome signs/symptoms with patient and when to seek additional care. Comfortable with discharge home. Medications Administered Discontinued Medications Generic Name Dose Route Start Last Admin Trade Name Freq PRN Reason Stop Dose Admin Meclizine HCl 50 mg 12/18/22 14:09 12/18/22 14:15 Meclizine Hcl 25 Mg Tablet PO 12/18/22 14:10 50 mg ONCE ONE Administration Medical Decision Making Medical Decision Making MDM Narrative: 52 yo female with history of NIDDM, hypothyroidism, vertigo here with complaints of dizziness and nausea which is worsened with head movement and body position changes since last evening at 10pm. Patient reports history of vertigo and this feels similar. She does tell me that she has had a cough which she contributes to her asthma and tells me that she has not had any recent cough or cold symptoms. She tells me that typically this season changes affect her asthma and she has had to use her inhaler more frequently recently. She denies any chest pain, shortness of breath, URI symptoms, vomiting, diarrhea, headache, fevers, neck pain or neck stiffness. normal neurological exam with no overt neurological deficits. Patient has symptoms which are worsened with head movement which is most likely secondary to BPPV. Patient will receive a dose of meclizine and have a brief period of observation and I anticipate she will be discharged Differential Diagnosis Differential Diagnoses: The differential diagnosis associated with the presentation includes BPPV low concern for ICH, cerebellar infarct, anemia, electrolyte abnormality, ACS, orthostatic hypotension Admission/Observation Consideration of admission/observation: Escalation of care including admission/observation considered normal neuro exam with no focal deficits to suggest need for additional imaging, observation or admission Independent Historian Clinical information obtained from an independent historian. History obtained from or confirmed by: EMS Tests considered The following testing was considered but not selected: Normal neuro exam with no focal deficits to suggest need for Ct head Discharge Plan Discharge Clinical Impression: Benign paroxysmal positional vertigo Patient Disposition: Home, Self-Care Instructions: Benign Paroxysmal Positional Vertigo (ED) Additional Instructions: Change positions slowly Increase fluids at home Follow-up with your outpatient providers as needed Return for worsening symptoms Prescriptions: New meclizine 50 mg tablet 50 mg PO TID PRN (Reason: dizziness) Qty: 15 0RF No Action levothyroxine 100 mcg tablet 1 tab PO DAILY albuterol sulfate [ProAir HFA] 90 mcg/actuation HFA aerosol inhaler 2 puff inhalation Q4H PRN (Reason: wheezing) albuterol sulfate 90 mcg/actuation HFA aerosol inhaler 2 puff inhalation Q4-6H PRN (Reason: shortness of breath or wheezing) Qty: 8.5 0RF sumatriptan succinate [Imitrex] 50 mg tablet 50 mg PO Q2H PRN (Reason: migraine headache) Qty: 10 0RF Rx Instructions: do not exceed 2 doses per 24 hrs wmodultsya-thlksdravgznp-skej [Fioricet] 50-300-40 mg capsule 1 cap PO Q6H PRN (Reason: Headache) Qty: 20 0RF dicyclomine 20 mg tablet 20 mg PO QID PRN (Reason: Abdominal Discomfort) Qty: 20 0RF albuterol sulfate 90 mcg/actuation aerosol powdr breath activated 2 inh inhalation Q4-6H PRN (Reason: shortness of breath or wheezing) Qty: 1 0RF prednisone 20 mg tablet 20 mg PO DAILY 5 Days Qty: 5 0RF Referrals: Carlyn Gutiérrez PA [Primary Care Provider] - 1 week (prn) Interventions: ED Discharge Assessment Last Done: 12/18/22 15:25 Discharge Date/Time: 12/18/22 15:29
[2022-12-18] MEDS: Meclizine HCl 25 MG TABLET 50 MG PO (14:15)
--- NOTE | 2022-12-18 14:17 | PC.NURSE ---
Medicated with meclizine and gave a spacer for her inhaler. Also gave her jody crackers because she hadn't eaten all day.
--- NOTE | 2022-12-18 15:28 | PC.NURSE ---
Trial amb with pt, denies dizziness, gait steady.
== END 2022-12-18 15:29 | disposition home or self-care (01) ==
PROVIDERS: Emergency Provider Emergency Medicine; PCP Physician Assistant Medical
DX: H81.10 Benign paroxysmal vertigo, unspecified ear (principal); E11.9 Type 2 diabetes mellitus without complications; Z79.899 Other long term (current) drug therapy
CPT/HCPCS: 99283; 99284

== ENCOUNTER 2023-08-25 11:51 | Emergency (ER) | payer OTHER, SELFPAY ==
[2023-08-25 11:53] VITALS: BP 130/57; PULSE 97; RESP 17; TEMP 36.6; O2SAT 97; BMI 45.0
--- NOTE | 2023-08-25 11:54 | ED.SKABFB ---
HPI - Skin/Abscess/Foreign Bdy General Chief complaint: General Medical Stated complaint: Infection (?) R foot Time Seen by Provider: 08/25/23 12:17 Source: patient and RN notes reviewed Mode of arrival: ambulatory Limitations: no limitations History of Present Illness ED Provider: Alisha Langford PA-C HPI narrative: This is a 52-year-old female who presents emergency department with complaints of right great toe pain and redness since yesterday. Patient states that she had a pedicure yesterday and believes the nail expert an area which is now infected. She states she has been draining the area as it filled with pus. She states that the area is painful and red. She denies taking any medications prior to arrival. Denies history of similar symptoms in the past. No other complaints or concerns this time. Onset (ago): day(s) Tetanus up to date: yes Relieving factors: none Exacerbating factors: none Context: none Associated symptoms: denies other symptoms Treatments prior to arrival: none Related Data Home Medications ?Medication ?Instructions ?Recorded ?Confirmed albuterol sulfate 90 mcg/actuation 2 puff inhalation Q4H PRN wheezing 08/12/20 08/12/20 aerosol inhaler (ProAir HFA) levothyroxine 100 mcg tablet 1 tab PO DAILY 08/12/20 08/12/20 Previous Rx's ?Medication ?Instructions ?Recorded albuterol sulfate 90 mcg/actuation 2 puff inhalation Q4-6H PRN 11/09/20 aerosol inhaler shortness of breath or wheezing #8.5 grams jooginlrxg-zchtlbvfydbpv-qhnruufa 1 cap PO Q6H PRN Headache #20 caps 12/02/20 50 mg-300 mg-40 mg capsule (Fioricet) sumatriptan succinate 50 mg tablet 50 mg PO Q2H PRN migraine headache 12/02/20 (Imitrex) #10 tabs dicyclomine 20 mg tablet 20 mg PO QID PRN Abdominal 05/26/21 Discomfort #20 tabs albuterol sulfate 90 mcg/actuation 2 inh inhalation Q4-6H PRN 06/26/21 breath activated powder inhaler shortness of breath or wheezing #1 ea prednisone 20 mg tablet 20 mg PO DAILY 5 days #5 tabs 06/26/21 meclizine 50 mg tablet 50 mg PO TID PRN dizziness #15 tabs 12/18/22 clindamycin HCl 300 mg capsule 300 mg PO TID 7 days #21 caps 08/25/23 Allergies Allergy/AdvReac Type Severity Reaction Status Date / Time peanut [PEANUT] Allergy Severe ANAPHYAXIS Verified 08/25/23 11:56 Penicillins [PENICILLINS] Allergy Intermediate HIVES Verified 08/25/23 11:56 latex [LATEX] Allergy Unknown HIVES, Verified 08/25/23 11:56 SWELLING metronidazole [From FLAGYL] Allergy Unknown UNK Verified 08/25/23 11:56 sumatriptan AdvReac Fainting Verified 08/25/23 11:56 Review of Systems Review of Systems: Yes all other systems are reviewed and are negative Constitutional: Constitutional: Reports as per [facility] Past Medical History Medical History (Updated 08/26/23 @ 00:00 by Kenny De Leon) Anxiety Hypothyroidism Asthma Social History Social History (System 01/27/23 @ 14:07 by Chelsea Canales) Alcohol intake: never Patient Tobacco Use Status: Never used Tobacco Advance Directives: Yes Advance Directives Information Provided: Yes Advance Directives on File: No Do you have a plan to hurt others: No Plan Physical Exam Vital Signs: Vital Signs: Last Vital Signs Temp 0 F L 08/25/23 15:33 Pulse 78 08/25/23 15:33 Resp 18 08/25/23 15:33 BP 134/64 08/25/23 15:33 Pulse Ox 96 08/25/23 15:33 O2 Del Method Room Air 08/25/23 15:33 BMI result Body Mass Index 45.0 Const: General: cooperative, comfortable and no acute distress Orientation/consciousness: patient oriented x3 Limitations: no limitations HEENT: Head: Yes normal to inspection, Yes normocephalic and Yes atraumatic Ears: hearing grossly normal bilaterally General nose exam: Normal external nose present Face and sinus: Yes normal facial exam Mouth: Normal oral and palatal mucosa present, oropharynx normal and moist mucous membranes Throat: Yes posterior oropharynx normal Eyes: General: appearance normal, both eyes and all related structures Eyelids: Yes eyelids normal Conjunctivae: conjunctivae normal Sclerae: sclerae normal Pupils: Equal, round and reactive pupils present EOM: EOMs intact bilaterally Neck: Neck: Yes normal visual inspection, Yes full ROM and Yes no lymphadenopathy Lymphatic: no lymphadenopathy noted Chest: Chest palpation & inspection: normal inspection of the chest Resp: Effort & Inspection: normal respiratory effort and able to speak in complete sentences Auscultation: clear to auscultation bilaterally Cardio: Rate: regular rate Rhythm: regular rhythm Heart sounds: S1 normal heart sound present and S2 normal heart sound present GI: Inspection: Yes normal to inspection Skin: General skin exam: no rashes or lesions noted Trauma: no lacerations or abrasions Wounds: no wounds Neuro: General: patient oriented x3 and moves all extremities Cranial nerves: Yes Equal, round and reactive pupils present Extrem: Other: Right great toe, lateral border of the nail bed it is erythematous and edematous, no drainage noted. Tender to palpation. Strong radial pulse. No surrounding erythema or warmth. Full range of motion of the digits. General: Yes normal to inspection Right upper extremity: normal to inspection Left upper extremity: normal to inspection Right lower extremity: normal to inspection Left lower extremity: normal to inspection Course Course Course Narrative: This is a Rapid Medical Examination (RME) performed by Nilsa Crawley PA-C in triage. Full HPI, ROS, assessment and treatment plan per primary provider in the Main ED. 52 yo female hx of asthma, prediabetes, here for eval of right great toe pain/ swelling x1 day. reports having her toe nails done yesterday at a nail salon. states that the nail puller was pulling and cutting away at her right great toe nail and since this time, reports pain/ swelling around the right great toe. 10/10 pain. admits the area was draining purulent drainage this morning. denies fevers/ chills. Plan: drainage Medications Administered Discontinued Medications Generic Name Dose Route Start Last Admin Trade Name Freq PRN Reason Stop Dose Admin Diphtheria/Tetanus/Acell Pertussis 0.5 ml 08/25/23 14:56 08/25/23 15:25 Diphth,Pertus(Acell),Tet Adult 0.5 Ml Syringe IM 08/25/23 14:57 0.5 ml .ONCE ONE Administration Medical Decision Making Medical Decision Making MDM Narrative: This is a 52-year-old female who presents emergency department with complaints of right great toe pain status post pedicure. Upon arrival, vital signs within normal limits. She is afebrile. She has tenderness palpation along the lateral border of her feel bad with slight erythema and edema, no fluctuance. Differential diagnoses include paronychia, cellulitis, gout. Patient states that she has been draining purulent drainage from the region. This does not appear to be able to be drained at this point however will cover with antibiotics. Given strict return precautions. She understands and agrees with plan. Patient stable for discharge. Differential Diagnosis Differential Diagnoses: The differential diagnosis associated with the presentation includes See above Discharge Plan Discharge Clinical Impression: Cellulitis of great toe of right foot Patient Disposition: Home, Self-Care Instructions: Cellulitis (ED) Additional Instructions: Your toe appears to be infected. You need to perform warm soaks 5-6 times per day. Take prescribed antibiotic as directed, finish the entire course. Keep a close eye on the area, please return if you have any increased redness, swelling. Take ibuprofen and/or Tylenol as needed for pain. We updated your tetanus shot in the department today. If any new or worsening symptoms occur including but not limited to fevers, chills, worsening redness, swelling, you may need to return to have this area re-evaluated. Prescriptions: New clindamycin HCl 300 mg capsule 300 mg PO TID 7 Days Qty: 21 0RF No Action levothyroxine 100 mcg tablet 1 tab PO DAILY albuterol sulfate [ProAir HFA] 90 mcg/actuation HFA aerosol inhaler 2 puff inhalation Q4H PRN (Reason: wheezing) albuterol sulfate 90 mcg/actuation HFA aerosol inhaler 2 puff inhalation Q4-6H PRN (Reason: shortness of breath or wheezing) Qty: 8.5 0RF sumatriptan succinate [Imitrex] 50 mg tablet 50 mg PO Q2H PRN (Reason: migraine headache) Qty: 10 0RF Rx Instructions: do not exceed 2 doses per 24 hrs pcyowrqrug-allzcyrvkmxge-xtvk [Fioricet] 50-300-40 mg capsule 1 cap PO Q6H PRN (Reason: Headache) Qty: 20 0RF dicyclomine 20 mg tablet 20 mg PO QID PRN (Reason: Abdominal Discomfort) Qty: 20 0RF albuterol sulfate 90 mcg/actuation aerosol powdr breath activated 2 inh inhalation Q4-6H PRN (Reason: shortness of breath or wheezing) Qty: 1 0RF prednisone 20 mg tablet 20 mg PO DAILY 5 Days Qty: 5 0RF meclizine 50 mg tablet 50 mg PO TID PRN (Reason: dizziness) Qty: 15 0RF Interventions: ED Discharge Assessment Last Done: 08/25/23 15:33 Discharge Date/Time: 08/25/23 15:34 Print Language: Romansh
[2023-08-25] MEDS: Diphth,Pertus(ACell),Tet Adult 0.5 ML SYRINGE IM (15:25)
[2023-08-25 15:33] VITALS: BP 134/64; PULSE 78; RESP 18; TEMP -17.7; TEMP 0; O2SAT 96
== END 2023-08-25 15:34 | disposition home or self-care (01) ==
PROVIDERS: Emergency Provider Student in an Organized Health Care Education/Training Program; PCP Physician Assistant Medical
DX: L03.031 Cellulitis of right toe (principal); M79.671 Pain in right foot; Z79.899 Other long term (current) drug therapy; Z23 Encounter for immunization
CPT/HCPCS: 90471; 90715; 99282; 99284

== ENCOUNTER 2024-02-27 08:35 | Emergency (ER) | payer OTHER, SELFPAY ==
[2024-02-27 08:43] VITALS: BP 135/75; PULSE 75; RESP 20; TEMP 36.6; O2SAT 94; BMI 46.7
--- NOTE | 2024-02-27 09:48 | ED_ITS ---
HPI - Extremity Injury (Lower) General Chief Complaint: Extremity Injury, Lower Stated Complaint: Toe injury R foot Time Seen by Provider: 02/27/24 09:11 Source: patient Mode of arrival: ambulatory Limitations: no limitations History of Present Illness ED Provider: OVIDIO HERNANDEZ PA-C HPI Narrative: 53-year-old female with past medical history significant for anxiety, asthma, hypothyroidism, type 2 diabetes presents to the ED today for evaluation of redness, pain, swelling to her right great toe x2 days which began after pulling a hangnail off of her right great toe. Reports concern as she was diabetes. Denies fever, chills. Denies any drainage from the area. Denies any open wound. Related Data Home Medications ?Medication ?Instructions ?Recorded ?Confirmed albuterol sulfate 90 mcg/actuation 2 puff inhalation Q4H PRN wheezing 08/12/20 08/12/20 aerosol inhaler (ProAir HFA) levothyroxine 100 mcg tablet 1 tab PO DAILY 08/12/20 08/12/20 Previous Rx's ?Medication ?Instructions ?Recorded albuterol sulfate 90 mcg/actuation 2 puff inhalation Q4-6H PRN 11/09/20 aerosol inhaler shortness of breath or wheezing #8.5 grams qxgegpkwbj-zjkgatmiusydo-kulxuoof 1 cap PO Q6H PRN Headache #20 caps 12/02/20 50 mg-300 mg-40 mg capsule (Fioricet) sumatriptan succinate 50 mg tablet 50 mg PO Q2H PRN migraine headache 12/02/20 (Imitrex) #10 tabs dicyclomine 20 mg tablet 20 mg PO QID PRN Abdominal 05/26/21 Discomfort #20 tabs albuterol sulfate 90 mcg/actuation 2 inh inhalation Q4-6H PRN 06/26/21 breath activated powder inhaler shortness of breath or wheezing #1 ea prednisone 20 mg tablet 20 mg PO DAILY 5 days #5 tabs 06/26/21 meclizine 50 mg tablet 50 mg PO TID PRN dizziness #15 tabs 12/18/22 clindamycin HCl 300 mg capsule 300 mg PO TID 7 days #21 caps 08/25/23 cephalexin 500 mg capsule 500 mg PO BID 5 days #10 caps 02/27/24 doxycycline monohydrate 100 mg 100 mg PO BID 5 days #10 caps 02/27/24 capsule naproxen 500 mg tablet 500 mg PO Q12H PRN pain (scale 02/27/24 score 1-3) #20 tabs Allergies Allergy/AdvReac Type Severity Reaction Status Date / Time peanut [PEANUT] Allergy Severe ANAPHYAXIS Verified 02/27/24 08:46 Penicillins [PENICILLINS] Allergy Intermediate HIVES Verified 02/27/24 08:46 latex [LATEX] Allergy Unknown HIVES, Verified 02/27/24 08:46 SWELLING metronidazole [From FLAGYL] Allergy Unknown UNK Verified 02/27/24 08:46 sumatriptan AdvReac Fainting Verified 02/27/24 08:46 Review of Systems Review of Systems: Constitutional: No fever, chills, fatigue, night sweats, weight changes ENT/Mouth: No ear pain, hearing loss, nasal congestion, sinus pain, rhinorrhea, sore throat Eyes: No eye pain, swelling, redness, vision changes, discharge Cardio: No chest pain, palpitations, TROTTER, orthopnea, peripheral edema Pulm: No SOB, cough, sputum, wheezing, dyspnea, hemoptysis GI: No nausea, vomiting, hematemesis, abdominal pain, diarrhea, constipation, hematochezia, melena : No irregular bleeding, dysuria, frequency, urgency, hesitancy, hematuria, flank pain, urinary flow changes, urinary incontinence or retention MSK: No back pain, neck pain, joint pain, myalgias Skin: No lesions, rashes, + redness/swelling/pain to right great toe Neuro: No weakness, numbness, paresthesias, LOC, dizziness, headache Psych: No anxiety/panic, depression, SI/HI, AH/VH All other systems reviewed and are negative. [facility] Past Medical History Attestation statement: The following information was validated with the patient. Source: old records reviewed and nursing notes reviewed Medical History Anxiety Hypothyroidism Asthma Social History Social History Alcohol intake: never Patient Tobacco Use Status: Never used Tobacco Advance Directives: No Advance Directives Information Provided: Yes Do you have a plan to hurt others: No Plan Physical Exam Vital Signs: Vital Signs: Last Vital Signs Temp 97.8 F 02/27/24 08:43 Pulse 75 02/27/24 08:43 Resp 20 02/27/24 08:43 BP 135/75 02/27/24 08:43 Pulse Ox 94 02/27/24 08:43 O2 Del Method Room Air 02/27/24 08:43 BMI result Body Mass Index 46.7 Vital signs stable, afebrile General: Well appearing, in no acute distress. Skin: Warm, dry, intact. No rashes or lesions. Head: Normocephalic, atraumatic. EENT: Hearing is intact b/l. Conjunctiva clear. PERRLA. EOM intact. Moist mucous membranes.? Neck: Supple without LAD Cardiac: Chest wall symmetric. RRR Lungs: Normal respiratory effort without accessory muscle use Ext: + erythema, swelling to the medial nail fold of the right great toenail. No ingrown toenail. Tender to palpation without fluctuance. No pointing. No streaking. No open wounds. Full ROM intact to right great toe Neuro: AOx3. Normal speech. Ambulating with steady gait. Psych: Appropriate mood and affect. Responds appropriately to questions. Course Course Course Narrative: 1037 -- Exam consistent with paronychia. No evidence of abscess requiring drainage. Given history of diabetes, will cover with doxycycline and Keflex. Patient has a penicillin allergy with reaction of hives. A dose of Keflex was given in the ED and she was observed without reaction. Antibiotics sent to pharmacy. Patient has remained stable throughout ED visit today. Discussed worrisome signs and symptoms and when to return to the ED. All questions answered at this time. Patient is agreeable with disposition and stable for discharge. Medications Administered Discontinued Medications Generic Name Dose Route Start Last Admin Trade Name Freq PRN Reason Stop Dose Admin Cephalexin HCl 500 mg 02/27/24 09:52 02/27/24 10:07 Cephalexin 500 Mg Capsule PO 02/27/24 09:53 500 mg ONCE ONE Administration Medical Decision Making Medical Decision Making MDM Narrative: 53-year-old female with past medical history significant for anxiety, asthma, hypothyroidism, type 2 diabetes presents to the ED today for evaluation of redness, pain, swelling to her right great toe x2 days which began after pulling a hangnail off of her right great toe. Vital signs stable. Afebrile. On exam, there is erythema, swelling to the medial nail fold of the right great toenail. No ingrown toenail. Tender to palpation without fluctuance. No pointing. No s treaking. No open wounds. Full ROM intact to right great toe. Differential diagnosis includes cellulitis, paronychia, felon. Unlikely abscess, oseto. Plan for disposition Differential Diagnosis Differential Diagnoses: The differential diagnosis associated with the presentation includes as above. Admission/Observation Not indicated. External Record Review External record reviewed: Inpatient record, Office record, Outpatient record, Prior outpatient labs, Prior outpatient radiology, Primary care record and Outside ED record Prescription Management I considered prescription management with: Pain Medication (naproxen) and Antibiotic (keflex, doxy) Chronic Conditions Patient?s care impacted by: Diabetes Social Determinants Patient?s care significantly limited by Social Determinants of Health including: Other Social Determinant of Health Critical Care Time Critical Care Time Critical Care Time: No Discharge Plan Discharge Clinical Impression: Paronychia of great toe of right foot Patient Disposition: Home, Self-Care Instructions: Paronychia (ED), Cellulitis (ED) Additional Instructions: You have an infection around the nail fold of your left great toe. As discussed, I am sending 2 antibiotics to your pharmacy (doxycycline and keflex). Take these as prescribed. I have also sent naproxen to your pharmacy for you to take as needed for pain/ discomfort. Soak the toe in warm water and Epsom salt multiple times throughout the day to help draw the infection out. Follow up with your PCP as needed. Return with new or worsening symptoms. In the case of an emergency call 911. Prescriptions: New doxycycline monohydrate 100 mg capsule 100 mg PO BID 5 Days Qty: 10 0RF cephalexin 500 mg capsule 500 mg PO BID 5 Days Qty: 10 0RF naproxen 500 mg tablet 500 mg PO Q12H PRN (Reason: pain (scale score 1-3)) Qty: 20 0RF No Action levothyroxine 100 mcg tablet 1 tab PO DAILY albuterol sulfate [ProAir HFA] 90 mcg/actuation HFA aerosol inhaler 2 puff inhalation Q4H PRN (Reason: wheezing) albuterol sulfate 90 mcg/actuation HFA aerosol inhaler 2 puff inhalation Q4-6H PRN (Reason: shortness of breath or wheezing) Qty: 8.5 0RF sumatriptan succinate [Imitrex] 50 mg tablet 50 mg PO Q2H PRN (Reason: migraine headache) Qty: 10 0RF Rx Instructions: do not exceed 2 doses per 24 hrs ylbmvdmtig-uwhmshbzuxcbc-cfgb [Fioricet] 50-300-40 mg capsule 1 cap PO Q6H PRN (Reason: Headache) Qty: 20 0RF dicyclomine 20 mg tablet 20 mg PO QID PRN (Reason: Abdominal Discomfort) Qty: 20 0RF albuterol sulfate 90 mcg/actuation aerosol powdr breath activated 2 inh inhalation Q4-6H PRN (Reason: shortness of breath or wheezing) Qty: 1 0 RF prednisone 20 mg tablet 20 mg PO DAILY 5 Days Qty: 5 0RF meclizine 50 mg tablet 50 mg PO TID PRN (Reason: dizziness) Qty: 15 0RF clindamycin HCl 300 mg capsule 300 mg PO TID 7 Days Qty: 21 0RF Referrals: Carlyn Gutiérrez PA [Primary Care Provider] - Print Language: Kazakh
[2024-02-27] MEDS: cephALEXin 500 MG CAPSULE PO (10:07)
--- NOTE | 2024-02-27 10:41 | PC.NURSE ---
pt medicated per MAY, noted concern for allergic rxn d/t not having had antibiotic before. pt observed following administrations w no noted side effects.
[2024-02-27 10:50] VITALS: BP 135/75; PULSE 75; RESP 20; TEMP 36.6; O2SAT 94
== END 2024-02-27 11:11 | disposition home or self-care (01) ==
PROVIDERS: Emergency Provider Emergency Medicine; PCP Physician Assistant Medical
DX: L03.031 Cellulitis of right toe (principal); E11.9 Type 2 diabetes mellitus without complications; M79.674 Pain in right toe(s); Z79.899 Other long term (current) drug therapy
CPT/HCPCS: 99282; 99283

== ENCOUNTER 2024-04-12 00:07 | Inpatient (IN) | payer OTHER, SELFPAY ==
[2024-04-12] VITALS (13 sets, daily range): BP systolic 125–143; BP diastolic 58–85; PULSE 88–124; RESP 18–24; TEMP 36.8–38.1; O2SAT 88–95; BMI 48.5
--- NOTE | 2024-04-12 | ECG_ITS ---
Test Reason : ABD PAIN Blood Pressure : */* mmHG Vent. Rate : 123 BPM Atrial Rate : 123 BPM P-R Int : 132 ms QRS Dur : 76 ms QT Int : 294 ms P-R-T Axes : 73 65 53 degrees QTcB Int : 420 ms Sinus tachycardia Otherwise normal ECG No previous ECGs available Referred By: Generic ED Physician Electronically Signed By: REGINO JESUS MD
--- NOTE | ~2024-04-12 | XR_ITS ---
CLINICAL HISTORY: fever, cough, SOB 1 view chest x-ray Comparison: Chest x-ray from 06/26/2021 Findings: Mild interstitial opacities as can be seen with pulmonary edema and pneumonitis. Question small effusions with obscuration of the costophrenic angles. Imaged mediastinum appears unchanged. No pneumothorax. Degenerative changes include imaged AC joints. IMPRESSION: Mild pulmonary opacities as can be seen with pneumonitis and pulmonary edema. This document has been electronically signed by: Venkat Mcneil MD on 04/12/2024 02:14:31
--- NOTE | 2024-04-12 00:37 | ED_ITS ---
HPI - General Adult General Chief complaint: Abdominal Pain Stated complaint: SOB, n/v, hx asthma, neb given Time Seen by Provider: 04/12/24 00:37 History of Present Illness ED Provider: Nasir SELLERS narrative: The patient is a 53-year-old woman with a history of asthma who says that she started to feel ill about 2 days ago with shortness of breath and a cough. She also had a fever. She has been coughing a great deal and now feels that she has abdominal pains related to the coughing. She has also had nausea. She says that her symptoms started very abruptly when they began 2 days ago. Related Data Home Medications ?Medication ?Instructions ?Recorded ?Confirmed albuterol sulfate 90 mcg/actuation 2 puff inhalation Q4H PRN wheezing 08/12/20 08/12/20 aerosol inhaler (ProAir HFA) levothyroxine 100 mcg tablet 1 tab PO DAILY 08/12/20 08/12/20 Previous Rx's ?Medication ?Instructions ?Recorded albuterol sulfate 90 mcg/actuation 2 puff inhalation Q4-6H PRN 11/09/20 aerosol inhaler shortness of breath or wheezing #8.5 grams mnmlvujhoz-ofhqzmevvioem-mlokxnfq 1 cap PO Q6H PRN Headache #20 caps 12/02/20 50 mg-300 mg-40 mg capsule (Fioricet) sumatriptan succinate 50 mg tablet 50 mg PO Q2H PRN migraine headache 12/02/20 (Imitrex) #10 tabs dicyclomine 20 mg tablet 20 mg PO QID PRN Abdominal 05/26/21 Discomfort #20 tabs albuterol sulfate 90 mcg/actuation 2 inh inhalation Q4-6H PRN 06/26/21 breath activated powder inhaler shortness of breath or wheezing #1 ea prednisone 20 mg tablet 20 mg PO DAILY 5 days #5 tabs 06/26/21 meclizine 50 mg tablet 50 mg PO TID PRN dizziness #15 tabs 12/18/22 clindamycin HCl 300 mg capsule 300 mg PO TID 7 days #21 caps 08/25/23 cephalexin 500 mg capsule 500 mg PO BID 5 days #10 caps 02/27/24 doxycycline monohydrate 100 mg 100 mg PO BID 5 days #10 caps 02/27/24 capsule naproxen 500 mg tablet 500 mg PO Q12H PRN pain (scale 02/27/24 score 1-3) #20 tabs Allergies Allergy/AdvReac Type Severity Reaction Status Date / Time peanut [PEANUT] Allergy Severe ANAPHYAXIS Verified 04/12/24 00:45 Penicillins [PENICILLINS] Allergy Intermediate HIVES Verified 04/12/24 00:45 latex [LATEX] Allergy Unknown HIVES, Verified 04/12/24 00:45 SWELLING metronidazole [From FLAGYL] Allergy Unknown UNK Verified 02/27/24 08:46 sumatriptan AdvReac Fainting Verified 02/27/24 08:46 Review of Systems 2 Review of Systems: Yes all other systems are reviewed and are negative [facility] Past Medical History Medical History (Updated 04/12/24 @ 03:59 by Ghislaine Malloy PA-C) Morbid obesity with BMI of 45.0-49.9, adult Type 2 diabetes mellitus without complications Anxiety Hypothyroidism Asthma Social History Social History Alcohol intake: never Patient Tobacco Use Status: Never used Tobacco Advance Directives: No Advance Directives Information Provided: Yes Do you have a plan to hurt others: No Plan Physical Exam ED Vital Signs: Vital Signs - 24 hr 04/12/24 00:33 04/12/24 00:33 04/12/24 00:33 Temperature 100.6 F H 100.6 F H Pulse Rate 124 H 124 H Pulse Rate [Automated] 124 H Respiratory Rate 24 H 24 H 24 H Blood Pressure 141/85 H 141/85 H Pulse Oximetry 88 L 88 L Oxygen Delivery Method Room Air Room Air Oxygen Flow Rate 04/12/24 00:57 04/12/24 02:30 04/12/24 03:13 Temperature 99.6 F 99.6 F Pulse Rate 116 H 108 H 106 H Pulse Rate [Automated] Respiratory Rate 18 22 H 22 H Blood Pressure 143/77 H 143/77 H Pulse Oximetry 94 Oxygen Delivery Method Nasal Cannula Oxygen Flow Rate 4 BMI result Body Mass Index 48.5 Const Other: The patient is a 53-year-old woman who was awake. She looked quite unwell. She looked uncomfortable and short of breath and very fatigued HENMT Other: Face is symmetrical. Mucous membranes moist. Eyes General: appearance normal, both eyes and all related structures Neck Neck: Yes full ROM and Yes no JVD Resp Other: Inspiratory and expiratory wheezes bilaterally, coarse air entry. Mild increased work of breathing. Cardio Rate: regular rate Rhythm: regular rhythm Heart sounds: S1 normal heart sound present and S2 normal heart sound present GI Other: Abdomen is soft and nontender Skin Other: The patient was somewhat diaphoretic Neuro Other: The patient looked fatigued but mental status was not abnormal. She was coherent and oriented. Cranial nerves are grossly intact. She moves her extremities symmetrically. Extrem Other: No calf swelling or tenderness. No peripheral edema. Medications Administered Generic Name Dose Route Start Last Admin Trade Name Freq PRN Reason Stop Dose Admin Enoxaparin Sodium 40 mg 04/12/24 04:00 04/12/24 04:56 Enoxaparin Sodium 40 Mg/0.4 Ml Syringe SUBCUT 40 mg Q24H MAYELIN Administration Discontinued Medications Generic Name Dose Route Start Last Admin Trade Name Freq PRN Reason Stop Dose Admin Albuterol Sulfate 7.5 mg/ 10 mg 04/12/24 00:50 04/12/24 00:56 Albuterol Sulfate 2.5 mg INHALE 04/12/24 00:51 10 mg ONCE ONE Administration Levalbuterol HCl 2.5 mg/ 0 mg 04/12/24 03:41 04/12/24 04:05 Ipratropium [place]am 0.5 mg INHALE 04/12/24 03:42 8.5 dose ONCE ONE Administration Acetaminophen 1,000 mg in 100 mls @ 400 mls/hr 04/12/24 01:31 04/12/24 02:11 Ofirmev IV 04/12/24 01:45 Infused ONCE ONE Infusion Sodium Chloride 1,000 mls @ 999 mls/hr 04/12/24 01:45 04/12/24 02:51 Ns IV 04/12/24 02:45 Infused .Q1H1M MAYELIN Infusion Ketorolac Tromethamine 10 mg 04/12/24 01:31 04/12/24 01:50 Ketorolac Tromethamine 15 Mg/Ml Vial IVPUSH 04/12/24 01:32 10 mg ONCE ONE Administration Methylprednisolone Sodium Succinate 80 mg 04/12/24 02:25 04/12/24 03:16 Methylprednisolone Sod Succ 125 Mg/2 Ml Vial IVPUSH 04/12/24 02:26 80 mg ONCE ONE Administration Ondansetron HCl 4 mg 04/12/24 00:42 04/12/24 01:08 Ondansetron Hcl 4 Mg/2 Ml Vial IVPUSH 04/12/24 00:43 4 mg ONCE ONE Administration Oseltamivir Phosphate 75 mg 04/12/24 02:07 04/12/24 02:57 Oseltamivir Phosphate 75 Mg Capsule PO 04/12/24 02:08 75 mg ONCE ONE Administration Medical Decision Making Medical Decision Making [facility] Narrative: The patient is a 53-year-old woman with a past medical history of significant problems with asthma who presents with an acute illness of 2 days' duration characterized by fevers, cough, and shortness of breath. She looks quite unwell. She was tachycardic. She was febrile. She was tachypneic. Oxygen saturation on room air was 88%. Looked fairly unwell. She was treated with IV fluids, IV ketorolac and acetaminophen. She was treated with bronchodilator treatments. She has tested positive for influenza A. She was given steroids. She was given her 1st dose of oseltamivir. Overall she seemed to look somewhat better with treatment but continued to have an oxygen requirement and so I recommended hospitalization on the hospitalist service. The patient was accepted by the hospitalist service. Lab Data 04/12/24 05:59 04/12/24 05:59 Labs: Lab Results 04/12/24 04/12/24 Range/Units 00:39 01:18 WBC 9.4 (4.8-10.8) X10*3/uL RBC 5.58 H (4.20-5.50) X10*6/uL Hgb 13.5 (12.0-16.0) g/dl Hct 41.3 (37.0-47.0) % MCV 74.0 L (80.0-98.0) fL MCH 24.2 L (27.0-33.0) pg MCHC 32.7 (31.0-35.0) g/dl RDW 19.5 H (11.0-16.0) % Plt Count 413 H (160-400) X10*3/uL MPV 9.6 (9.4-12.3) fL Immature Gran % (Auto) 0.6 H (0.0-0.4) % Neut % (Auto) 79.9 H (45-73) % Lymph % (Auto) 6.1 L (20-40) % [place] % (Auto) 10.4 (2-11) % Eos % (Auto) 2.1 (0-4) % Baso % (Auto) 0.9 (0-2) % Lymph # (Auto) 0.6 L (1.2-4.9) X10*3/uL [place] # (Auto) 1.0 (0.1-1.2) X10*3/uL Eos # (Auto) 0.2 (0.0-0.4) X10*3/uL Baso # (Auto) 0.1 (0.0-0.2) X10*3/uL Abs Immat Gran (auto) 0.06 H (0.00-0.03) X10*3/uL Absolute Neuts (auto) 7.5 (2.0-8.3) x10*3/uL Absolute Nucleated RBC 0.000 (0.0-0.012) X10*3/uL Nucleated RBC % (auto) 0.0 (0.0-0.2) /100WBC Sodium 137 (135-145) mmol/L Potassium 4.1 (3.3-5.1) mmol/L Chloride 105 (96-108) mmol/L Carbon Dioxide 22 (22-29) mmol/L Anion Gap 14 (12-20) BUN 7 L (9-16) mg/dL Creatinine 0.74 (0.5-1.4) mg/dL Estim Creat Clear Calc 109.7 Estimated GFR > 60 Random Glucose 130 H (60-115) mg/dL Lactic Acid 1.5 (0.5-2.0) mmol/L Calcium 9.7 (8.4-10.2) mg/dL Magnesium 1.9 (1.6-2.6) mg/dL Total Bilirubin 0.3 (0.0-1.0) mg/dL Direct Bilirubin 0.1 (0.0-0.5) mg/dL AST 39 H (5-31) U/L ALT 35 H (0-31) U/L Alkaline Phosphatase 91 (39-117) U/L C-Reactive Protein 3.78 H (< or = 0.50) mg/dL B-Natriuretic Peptide 14 (<100) pg/mL Total Protein 8.3 H (6.5-8.0) g/dL Albumin 4.3 (3.5-5.0) g/dL Lipase 11 (8-78) U/L Influenza Type A (PCR) POSITIVE A (Negative) Influenza Type B (PCR) NEGATIVE (Negative) RSV RNA Qual (PCR) NEGATIVE (Negative) SARS-CoV-2 RNA (RT-PCR) NEGATIVE (Negative) Discharge Plan Discharge Clinical Impression: Asthma with acute exacerbation, Influenza A Patient Disposition: Admitted As Inpatient
[2024-04-12 00:47] LABS: Basophils Absolute Auto 0.1 X10*3/uL (0.0-0.2); Basophils Percent Auto 0.9 % (0-2); Eosinophils Absolute Auto 0.2 X10*3/uL (0.0-0.4); Eosinophils Percent Auto 2.1 % (0-4); Hematocrit 41.3 % (37.0-47.0); Hemoglobin 13.5 g/dl (12.0-16.0); Imm Gran Abs Auto 0.06 X10*3/uL (0.00-0.03); Imm Gran Pct Auto 0.6 % (0.0-0.4); Lymphocytes Absolute Auto 0.6 X10*3/uL (1.2-4.9); Lymphocytes Percent Auto 6.1 % (20-40); MANUAL DIFF FLAG NO; Mean Corpuscular HGB Conc 32.7 g/dl (31.0-35.0); Mean Corpuscular Hemoglobin 24.2 pg (27.0-33.0); Mean Platelet Volume 9.6 fL (9.4-12.3); Monocytes Percent Auto 10.4 % (2-11); Neutrophils Absolute Auto 7.5 x10*3/uL (2.0-8.3); Neutrophils Percent Auto 79.9 % (45-73); Platelet Count 413 X10*3/uL (160-400); Red Blood Count 5.58 X10*6/uL (4.20-5.50); Red Cell Distribution Width 19.5 % (11.0-16.0); White Blood Count 9.4 X10*3/uL (4.8-10.8)
[2024-04-12] MEDS: Albuterol Sulfate 7.5 MG, Albuterol Sulfate (0.083%) 2.5 MG 10 MG INHALE (00:56)
[2024-04-12 01:02] LABS: Lactic Acid 1.5 mmol/L (0.5-2.0)
[2024-04-12 01:03] LABS: Alanine Aminotransferase 35 U/L (0-31); Albumin Level 4.3 g/dL (3.5-5.0); Anion Gap 14 (12-20); Aspartate Amino Transferase 39 U/L (5-31); Bilirubin Direct 0.1 mg/dL (0.0-0.5); Bilirubin Total 0.3 mg/dL (0.0-1.0); Blood Urea Nitrogen 7 mg/dL (9-16); C Reactive Protein 3.78 mg/dL (< or = 0.50); Calcium 9.7 mg/dL (8.4-10.2); Carbon Dioxide 22 mmol/L (22-29); Chloride 105 mmol/L (96-108); Creatinine Clr Calc Pharmacy 109.7; Estimated Glomerular Filt Rate > 60; Glucose Random 130 mg/dL (60-115); Lipase 11 U/L (8-78); Potassium 4.1 mmol/L (3.3-5.1); Sodium 137 mmol/L (135-145); Total Protein 8.3 g/dL (6.5-8.0)
[2024-04-12] MEDS: ondansetron HCL 4 MG/2 ML VIAL IVPUSH ×3 (01:08→21:44)
[2024-04-12 01:22] LABS: Alkaline Phosphatase 91 U/L (39-117)
[2024-04-12] MEDS: 0.9 % Sodium Chloride 1,000 ML 999 ML IV (01:49)
[2024-04-12] MEDS: Ketorolac Tromethamine 15 MG/ML VIAL 10 MG IVPUSH (01:50)
[2024-04-12] MEDS: Acetaminophen 1,000 MG/100 ML PIGGYBACK 400 MG IV (01:56)
[2024-04-12 02:01] LABS: Influenza A PCR POSITIVE (Negative); Influenza B PCR NEGATIVE (Negative); Resp Syncy Virus RNA Qual PCR NEGATIVE (Negative); SARS COV2 PCR INHOUSE NEGATIVE (Negative)
[2024-04-12] MEDS: Oseltamivir Phosphate 75 MG CAPSULE PO ×3 (02:57→19:47)
[2024-04-12] MEDS: methylPREDNISolone Sod Succ 125 MG/2 ML VIAL 80 MG IVPUSH (03:16)
--- NOTE | 2024-04-12 03:49 | P.HPHOSP_ITS ---
History of Present Illness Date of Service: 04/12/24 Attending physician on admission: Linda Dominguez Chief Complaint: SOB, cough, fever Patient is a 53-year-old female with a past medical history significant for asthma unspecified, anxiety, hypothyroid and type 2 diabetes, presented to the ED due to body aches, fever, shortness of breath, dry cough, fever, nausea and abdominal soreness for the past few days. She was hypoxic on arrival ED % on room air, with improvement in the mid 90s on 2 L O2 via NC. Reports overall feeling terribly. She has been wheezing a lot and using her albuterol way more than I should . She has generalized abdominal soreness which occurs mostly with just coughing. She denies any urinary symptoms including dysuria, frequency or urgency. Review of Systems 2 Constitutional: Constitutional: Reports body ache(s), Denies chills, Reports fatigue, Reports fever(s) and Denies headache(s) Eyes: Eyes: Denies change in vision and Denies photophobia ENT: Denies headache(s), Denies nasal congestion, Denies nasal discharge and Denies sore throat Cardiovascular: Cardiovascular: Reports rapid heart rate, Denies lightheadedness and Reports dyspnea Respiratory: Respiratory: Reports chest congestion, Reports cough, Reports dyspnea and Reports wheezing Gastrointestinal: Gastrointestinal: Denies constipation, Denies diarrhea and Reports nausea Genitourinary: Genitourinary: Denies dysuria and Denies urinary urgency Musculoskeletal: Musculoskeletal: Reports myalgias Integumentary/Breasts: Skin/Breast: Denies rash Neurologic: Denies confusion and Denies headache(s) Psychiatric: Psychiatric: Denies confusion Endocrine: Endocrine: Reports fatigue Hematologic/Lymphatic: Hematologic/Lymphatic: Denies easy bleeding and Denies easy bruising Allergic/Immunologic: Allergic/Immunologic: Reports wheezing [facility] Medical History (Updated 04/12/24 @ 03:59 by Ghislaine Malloy PA-C) Morbid obesity with BMI of 45.0-49.9, adult Type 2 diabetes mellitus without complications Anxiety Hypothyroidism Asthma Functional capacity: independent ambulation Social History Alcohol intake: never Patient Tobacco Use Status: Never used Tobacco Advance Directives: No Advance Directives Information Provided: Yes Do you have a plan to hurt others: No Plan Narrative: No smoking, alcohol or drug use Meds Allergies Allergy/AdvReac Type Severity Reaction Status Date / Time peanut [PEANUT] Allergy Severe ANAPHYAXIS Verified 04/12/24 00:45 Penicillins [PENICILLINS] Allergy Intermediate HIVES Verified 04/12/24 00:45 latex [LATEX] Allergy Unknown HIVES, Verified 04/12/24 00:45 SWELLING metronidazole [From FLAGYL] Allergy Unknown UNK Verified 02/27/24 08:46 sumatriptan AdvReac Fainting Verified 02/27/24 08:46 Active Medications: Current Medications Acetaminophen (Acetaminophen 325 Mg Tablet) 650 mg PO Q6H PRN PRN Reason: Pain, Mild 1-3,fever,headache Benzonatate (Benzonatate 100 Mg Capsule) 100 mg PO TID PRN PRN Reason: Cough Calcium Carbonate (Calcium Carbonate 750 Mg Tab.Chew) 750 mg PO Q4H PRN PRN Reason: Heartburn Levalbuterol HCl 2.5 mg/ (Ipratropium [place] 0.5 mg) 0 mg INHALE RQ4H WHILE AWAKE MAYELIN Enoxaparin Sodium (Enoxaparin Sodium 40 Mg/0.4 Ml Syringe) 40 mg SUBCUT Q24H MAYELIN Glucose (Glucose Gel 15 Gm Gel..Gram.) 15 gm PO Q15M PRN; Protocol PRN Reason: per Hypoglycemia Standing Ord. Dextrose (D10) 250 mls @ 750 mls/hr IV Q15M PRN; Protocol PRN Reason: per Hypoglycemia Standing Ord. Insulin Human Lispro (Insulin Lispro 100 Unit/Ml 3 Ml Vial) 0 unit SUBCUT QIDACHS MAYELIN; Protocol Magnesium Hydroxide (Milk Of Magnesia 30 Ml Oral.Susp) 30 ml PO DAILY PRN PRN Reason: Constipation Melatonin (Melatonin 3 Mg Tablet) 6 mg PO BEDTIME PRN PRN Reason: Insomnia Ondansetron HCl (Ondansetron Hcl 4 Mg/2 Ml Vial) 4 mg IVPUSH Q8H PRN PRN Reason: Nausea and Vomiting Sodium Chloride (0.9 % Sodium Chloride Flush 3 Ml Syringe) 3 ml IVFLUSH QSHIFT [facility] Home Medications ?Medication ?Instructions ?Recorded ?Confirmed ?Last Taken ?Type albuterol sulfate 90 mcg/actuation 2 puff inhalation Q4H PRN wheezing 05/25/21 05/25/21 Unknown History aerosol inhaler (ProAir HFA) levothyroxine 100 mcg tablet 1 tab PO DAILY 08/12/20 08/12/20 Unknown History Physical Exam 2 Vital Signs and Narrative: Vital Signs: Last Vital Signs Temp 99.6 F 04/12/24 03:13 Pulse 106 H 04/12/24 03:13 Resp 22 H 04/12/24 03:13 BP 143/77 H 04/12/24 03:13 Pulse Ox 94 04/12/24 03:13 O2 Del Method Nasal Cannula 04/12/24 03:13 O2 Flow Rate 4 04/12/24 03:13 BMI result Body Mass Index 48.5 General: AOx3, mild respiratory distress, lying in bed wheezing Resp: Wheezing throughout, mostly expiratory, no rhonchi or crackles CVS: Tachy, regular rhythm, no murmur GI: +BS, NT, no distention Skin: Warm, dry Neuro: Cranial nerves II-XII grossly intact bilaterally. Motor grossly intact bilaterally Extremities: No lower extremity edema Psych: Appropriate affect Const: General: No confusion Orientation/consciousness: No confusion Eyes: Direct Ophthalmoscopy: No photophobia Neuro: General: No confusion Results Labs 04/12/24 00:39 04/12/24 00:39 Labs: Laboratory Results - last 24 hr 04/12/24 04/12/24 00:39 01:18 MCV 74.0 L MCH 24.2 L MCHC 32.7 RDW 19.5 H Plt Count 413 H MPV 9.6 Immature Gran % (Auto) 0.6 H Neut % (Auto) 79.9 H Lymph % (Auto) 6.1 L [place] % (Auto) 10.4 Eos % (Auto) 2.1 Baso % (Auto) 0.9 Lymph # (Auto) 0.6 L [place] # (Auto) 1.0 Eos # (Auto) 0.2 Baso # (Auto) 0.1 Abs Immat Gran (auto) 0.06 H Absolute Neuts (auto) 7.5 Absolute Nucleated RBC 0.000 Nucleated RBC % (auto) 0.0 Anion Gap 14 Estim Creat Clear Calc 109.7 Estimated GFR > 60 Random Glucose 130 H Lactic Acid 1.5 Calcium 9.7 Total Bilirubin 0.3 Direct Bilirubin 0.1 AST 39 H ALT 35 H Alkaline Phosphatase 91 C-Reactive Protein 3.78 H Total Protein 8.3 H Albumin 4.3 Lipase 11 Influenza Type A (PCR) POSITIVE A Influenza Type B (PCR) NEGATIVE RSV RNA Qual (PCR) NEGATIVE SARS-CoV-2 RNA (RT-PCR) NEGATIVE Assessment and Plan (1) Acute hypoxic respiratory failure: Status: Acute (2) Asthma with acute exacerbation: Status: Acute (3) Influenza A: Status: Acute (4) Morbid obesity with BMI of 45.0-49.9, adult: Status: Acute (5) Elevated LFTs: Status: Acute Plan Patient is a 53-year-old female with a past medical history significant for asthma unspecified, anxiety, hypothyroid and type 2 diabetes, presented to the ED due to body aches, fever, shortness of breath, dry cough, fever, nausea and abdominal soreness for the past few days. Acute hypoxic respiratory failure secondary to asthma with acute exacerbation and flu A - WBC 9.4, lactic acid normal, blood cultures x2 pending, no sepsis - tachycardic secondary to albuterol use - chest x-ray with mild interstitial opacities as can be seen with pneumonitis and pulmonary edema - flu A positive - EKG with sinus tachycardia - check Mag and BNP - given Solu-Medrol 80 mg IV, oseltamivir x1 dose and 1 L IV fluids in ED - continue Solu-Medrol 40 mg b.i.d., oseltamivir 75 mg b.i.d. - levalbuterol/ipratropium Q4H while awake - no indication for antibiotics at this time - monitor CBC and BMP Influenza A - oseltamivir as above - supportive care - Tessalon as needed for cough Elevated LFTs - AST and ALT very mildly elevated, likely secondary to fatty liver disease which was found to previous imaging - follow-up outpatient Hypothyroid - continue levothyroxine Type 2 diabetes - no current medications, patient reported that she was taking Ozempic discontinued - sliding scale insulin - diabetic diet Obesity - BMI 48.5 - was on Ozempic, weight loss encouraged Full code VTE prophylaxis: Lovenox Patient with acute hypoxic respiratory failure secondary to asthma exacerbation complicated by flu A, requiring admission for at least 2 midnight stay for IV steroids and bronchodilators. Quality Stroke Does the patient have a stroke diagnosis?: No VTE Prior VTE?: No VTE Risk Level:: Medical - moderate - high VTE Device Contraindication: Treatment Not Indicated VTE Drug Contraindication: N/A - Med Ordered
[2024-04-12] MEDS: levalbuterol HCL 2.5 MG, Ipratropium Bromide 0.5 MG INHALE ×5 (04:05→20:24)
[2024-04-12 04:11] LABS: Magnesium 1.9 mg/dL (1.6-2.6)
[2024-04-12 04:29] LABS: B Type Natriuretic Peptide 14 pg/mL (<100)
[2024-04-12] MEDS: Enoxaparin Sodium 40 MG/0.4 ML SYRINGE SUBCUT (04:56)
[2024-04-12 06:05] LABS: Basophils Absolute Auto 0.1 X10*3/uL (0.0-0.2); Basophils Percent Auto 0.7 % (0-2); Eosinophils Percent Auto 0.4 % (0-4); Hematocrit 39.9 % (37.0-47.0); Imm Gran Abs Auto 0.04 X10*3/uL (0.00-0.03); Imm Gran Pct Auto 0.4 % (0.0-0.4); Lymphocytes Absolute Auto 0.4 X10*3/uL (1.2-4.9); Lymphocytes Percent Auto 3.8 % (20-40); Mean Corpuscular HGB Conc 32.6 g/dl (31.0-35.0); Mean Corpuscular Hemoglobin 24.3 pg (27.0-33.0); Mean Corpuscular Volume 74.7 fL (80.0-98.0); Mean Platelet Volume 9.7 fL (9.4-12.3); Monocytes Absolute Auto 0.4 X10*3/uL (0.1-1.2); Monocytes Percent Auto 4.5 % (2-11); Neutrophils Absolute Auto 8.2 x10*3/uL (2.0-8.3); Neutrophils Percent Auto 90.2 % (45-73); Platelet Count 412 X10*3/uL (160-400); Red Blood Count 5.34 X10*6/uL (4.20-5.50); Red Cell Distribution Width 19.2 % (11.0-16.0); SCAN SMEAR FLAG 1; White Blood Count 9.1 X10*3/uL (4.8-10.8)
[2024-04-12 06:07] LABS: MANUAL DIFF FLAG SCAN
[2024-04-12 06:16] LABS: Anion Gap 14 (12-20); Blood Urea Nitrogen 8 mg/dL (9-16); Calcium 9.2 mg/dL (8.4-10.2); Carbon Dioxide 21 mmol/L (22-29); Chloride 108 mmol/L (96-108); Estimated Glomerular Filt Rate > 60; Glucose Random 178 mg/dL (60-115); Potassium 4.5 mmol/L (3.3-5.1); Sodium 138 mmol/L (135-145)
[2024-04-12 06:29] LABS: SLIDE REVIEW VERIFIED
[2024-04-12 07:24] LABS: Glucose, Whole Blood 166 mg/dL (60-115)
[2024-04-12 08:10] LABS: Appearance Urine Clear; Color Urine Yellow; Glucose Urine UA Negative (Negative); Leukocyte Esterase Urine Negative (Negative); Nitrite Urine Negative (Negative); PH 5.5 (5.0-9.0); UMIC TRIGGER UACC YES; Urine Blood Small (1+) (Negative); Urine Ketones Negative (Negative); Urine Protein Negative (Neg-Trace)
[2024-04-12 08:20] LABS: Bacteria Urine None Seen (None Seen); Hyaline Casts Urine 0-2 /LPF (0-2); RBC Urine 0-2 /HPF (0-2); Squamous Epithelial Cell Urine 0-2 /HPF (0-2); WBC Urine 0-5 /HPF (0-5)
[2024-04-12] MEDS: methylPREDNISolone Sod Succ 40 MG/ML VIAL IVPUSH ×2 (08:55→21:44)
[2024-04-12] MEDS: Benzonatate 100 MG CAPSULE PO ×2 (08:55→19:46)
[2024-04-12] MEDS: 0.9 % Sodium Chloride Flush 3 ML SYRINGE IVFLUSH ×2 (08:57→15:55)
--- NOTE | 2024-04-12 09:21 | PHA.MEDREC ---
Addendum entered by Ayanna Muro, [facility] 04/12/24 09:30: rojelio also said she has gotten trulicity in the past, but it has not beed filled consistently and last picked up in November of 2023. Original Note: Pharmacy Consult ? Medication Reconciliation Pharmacy has completed the medication reconciliation, spoke to patient at bedside. Pt knew some meds but was unsure on some. Claims not available so I asked where patient fills and called [facility]. [facility]jel[facility] confirmed she takes levothyroxine and metformin ER 500 BID, Pt said she was also using advair 500, pharmacy confirmed she last picked it up 06/11 and then it was filled again 02/22/24 but not picked up.
[2024-04-12] MEDS: Insulin Lispro 100 UNIT/ML 3 ML VIAL SUBCUT (14:11)
[2024-04-12 14:22] LABS: Glucose, Whole Blood 177 mg/dL (60-115)
--- NOTE | 2024-04-12 15:40 | MHC.CM.PN ---
[employer] MET WITH PT IN ED PT STATES SHE LIVES WITH SPOUSE PT DOES NOT RECEIVE SERVICES PT DOES NOT USE DME HCP ON FILE AT [facility] NAMING , [place]. [phone] PCP ARUNA BERRY [facility] DCP- HOME NO SERVICES
--- NOTE | 2024-04-12 15:52 | ECG_ITS ---
Test Reason : syncope Blood Pressure : */* mmHG Vent. Rate : 122 BPM Atrial Rate : 122 BPM P-R Int : 122 ms QRS Dur : 74 ms QT Int : 292 ms P-R-T Axes : 75 60 47 degrees QTcB Int : 416 ms Sinus tachycardia Nonspecific T wave abnormality Abnormal ECG No previous ECGs available Referred By: Tianna Merritt Electronically Signed By: REGINO JESUS MD
--- NOTE | 2024-04-12 15:52 | ECG_ITS ---
Test Reason : syncope Blood Pressure : */* mmHG Vent. Rate : 96 BPM Atrial Rate : 96 BPM P-R Int : 138 ms QRS Dur : 78 ms QT Int : 316 ms P-R-T Axes : 61 57 -27 degrees QTcB Int : 399 ms Baseline wander Normal sinus rhythm Possible Normal ECG When compared with ECG of 12-Apr-2024 00:19, Repeat EKG with proper baseline Referred By: Tianna Merritt Electronically Signed By: REGINO JESUS MD
[2024-04-12 16:01] LABS: Glucose, Whole Blood 177 mg/dL (60-115)
--- NOTE | 2024-04-12 17:20 | PM.EVENT ---
Event Note Date of Service: 04/12/24 Event Note: This patient is seen and examined by hospitalist team this morning, Seen and examined again Shortness of breaths somewhat improving Physical exam and assessment and plan coordinated in APCs note, Agree with the plan in addition: Admitted forAcute hypoxic respiratory failure secondary to asthma with acute exacerbation and flu A: Continue nebs, steroids, Tamiflu, wean oxygen Time Spent With Patient Time: Total time managing care of this patient today ____ minutes.
--- NOTE | 2024-04-12 17:30 | PC.NURSE ---
this nurse was assisting with changing pt bed linens, pt stood up, became pale, diaphoretic. pt was assisted nichols into bed, EKG and POC obtained. MD hoover notified. IVF to be ordered
[2024-04-12] MEDS: 0.9 % Sodium Chloride 1,000 ML 100 ML IVCONT (18:15)
[2024-04-12 18:21] LABS: Glucose, Whole Blood 169 mg/dL (60-115)
[2024-04-12] MEDS: Butalb/Acetamin/Caff 50/325/40 TABLET 1 TAB PO (19:47)
[2024-04-12] MEDS: Calcium Carbonate 750 MG TAB.CHEW PO (21:44)
[2024-04-12] MEDS: Ondansetron ODT 8 MG TAB.RAPDIS TRANSLINGU (22:31)
[2024-04-13] VITALS (18 sets, daily range): BP systolic 128–167; BP diastolic 73–101; PULSE 74–106; RESP 12–21; TEMP 36.1–37.1; O2SAT 87–97
[2024-04-13] MEDS: Enoxaparin Sodium 40 MG/0.4 ML SYRINGE SUBCUT (03:46)
[2024-04-13] MEDS: 0.9 % Sodium Chloride 1,000 ML 100 ML IVCONT (05:15)
[2024-04-13] MEDS: Levothyroxine Sodium 100 MCG TABLET PO (05:15)
--- NOTE | 2024-04-13 05:29 | PC.ADMIT ---
Patient is alert/oriented, states she is having some abdominal pain. She ate some chicken nuggets that family brought in and vomited shortly after arrival. Patients iv was infiltrated upon arrival, hard stick, needed US guided access. RN called the ICU to make them aware at 1930 but no staff available at that time. IV access at 0300 this morning. Sublingual zofran ordered and administered for nausea with good effect. Patient is normally independent and steady on feet but had an event in the ED where she was diaphoretic and dizzy. EKG administered at that time and also administered upon arrival to S3. Patient is on telemetry currently in NSR. IV fluids started at 0300. Patient has been drinking plenty of fluids and snacking throughout the night as well as voiding on the bedside commode, no further complaints of dizzyness and no diaphoresis. She has stress incontinence. Last reported bm was 1-22. Patient has been sob on and off throughout the night. Wheezing throught lung pretty and sounds tight with cough. Updrafts administered. She reports feeling worse than when she had covid. Patient is on isolation for the Flu. No further events. Will continue to monitor.
[2024-04-13 06:34] LABS: MANUAL DIFF FLAG NO
[2024-04-13 06:47] LABS: Basophils Percent Auto 0.2 % (0-2); Eosinophils Percent Auto 0.2 % (0-4); Hematocrit 38.4 % (37.0-47.0); Hemoglobin 12.2 g/dl (12.0-16.0); Imm Gran Abs Auto 0.09 X10*3/uL (0.00-0.03); Imm Gran Pct Auto 0.8 % (0.0-0.4); Lymphocytes Absolute Auto 1.2 X10*3/uL (1.2-4.9); Mean Corpuscular HGB Conc 31.8 g/dl (31.0-35.0); Mean Corpuscular Hemoglobin 24.3 pg (27.0-33.0); Mean Corpuscular Volume 76.5 fL (80.0-98.0); Mean Platelet Volume 9.9 fL (9.4-12.3); Monocytes Absolute Auto 1.5 X10*3/uL (0.1-1.2); Monocytes Percent Auto 13.2 % (2-11); Neutrophils Absolute Auto 8.4 x10*3/uL (2.0-8.3); Neutrophils Percent Auto 74.6 % (45-73); Platelet Count 367 X10*3/uL (160-400); Red Blood Count 5.02 X10*6/uL (4.20-5.50); White Blood Count 11.3 X10*3/uL (4.8-10.8)
[2024-04-13 06:59] LABS: Anion Gap 15 (12-20); Blood Urea Nitrogen 12 mg/dL (9-16); Calcium 9.3 mg/dL (8.4-10.2); Carbon Dioxide 22 mmol/L (22-29); Chloride 107 mmol/L (96-108); Creatinine Clr Calc Pharmacy 106.8; Estimated Glomerular Filt Rate > 60; Glucose Random 174 mg/dL (60-115); Sodium 140 mmol/L (135-145)
[2024-04-13] MEDS: levalbuterol HCL 2.5 MG, Ipratropium Bromide 0.5 MG INHALE ×4 (07:18→20:12)
[2024-04-13 07:49] LABS: Glucose, Whole Blood 106 mg/dL (60-115)
[2024-04-13] MEDS: methylPREDNISolone Sod Succ 40 MG/ML VIAL IVPUSH ×2 (07:52→21:22)
[2024-04-13] MEDS: 0.9 % Sodium Chloride Flush 3 ML SYRINGE IVFLUSH ×3 (07:52→21:22)
[2024-04-13] MEDS: Oseltamivir Phosphate 75 MG CAPSULE PO ×2 (07:52→21:23)
--- NOTE | 2024-04-13 10:45 | MHC.CM.PN ---
PER MD ROUNDS, PT NOT READY TO DC DCP: HOME VIA SELF TRANSPORT
[2024-04-13 12:04] LABS: Glucose, Whole Blood 151 mg/dL (60-115)
[2024-04-13] MEDS: Insulin Lispro 100 UNIT/ML 3 ML VIAL SUBCUT ×2 (12:31→17:24)
--- NOTE | 2024-04-13 14:09 | HO.PM.IMPN ---
Subjective Subjective Date of Service: 04/13/24 Interval History: Acute hypoxic respiratory failure secondary to asthma with acute exacerbation and flu A Review of Systems sob with minimal excersion but dizziness improving Physical Exam Vital Signs: Vital Signs: Last Vital Signs Temp 97.6 F 04/13/24 12:22 Pulse 81 04/13/24 12:22 Resp 12 04/13/24 12:22 BP 151/85 H 04/13/24 12:22 Pulse Ox 93 04/13/24 12:22 O2 Del Method Nasal Cannula 04/13/24 12:22 O2 Flow Rate 2 04/13/24 12:22 BMI result Body Mass Index 48.5 Appearance: Alert.? Oriented X3.sob cvs: rrr, [id number] , no murmur res: air entry diminshed ,has b/l wheezing abd: no rebound or guarding ,nt, bs present. ext pulses present , no cyanosis. neuro: axo3 , nonfocal. Objective Data Active Medications Acetaminophen (Acetaminophen 325 Mg Tablet) 975 mg PO Q6H PRN PRN Reason: Pain, Mild 1-3,fever,headache Acetaminophen/Butalbital/Caffeine (Butalb/Acetamin/Caff 50/325/40 Tablet) 1 tab PO Q6H PRN PRN Reason: Headache Last Admin: 04/12/24 19:47 Dose: 1 tab Documented By: RAMÍREZ Benzonatate (Benzonatate 100 Mg Capsule) 100 mg PO TID PRN PRN Reason: Cough Last Admin: 04/12/24 19:46 Dose: 100 mg Documented By: RAMÍREZ Calcium Carbonate (Calcium Carbonate 750 Mg Tab.Chew) 750 mg PO Q4H PRN PRN Reason: Heartburn Last Admin: 04/12/24 21:44 Dose: 750 mg Documented By: RAMÍREZ Levalbuterol HCl 2.5 mg/ (Ipratropium [place] 0.5 mg) 0 mg INHALE RQ4H WHILE AWAKE [facility] Last Admin: 04/13/24 12:04 Dose: 1 dose Documented By: JANNETH Enoxaparin Sodium (Enoxaparin Sodium 40 Mg/0.4 Ml Syringe) 40 mg SUBCUT Q24H [facility] Last Admin: 04/13/24 03:46 Dose: 40 mg Documented By: RAMÍREZ Glucose (Glucose Gel 15 Gm Gel..Gram.) 15 gm PO Q15M PRN; Protocol PRN Reason: per Hypoglycemia Standing Ord. Dextrose (D10) 250 mls @ 750 mls/hr IV Q15M PRN; Protocol PRN Reason: per Hypoglycemia Standing Ord. Sodium Chloride (Ns) 1,000 mls @ 100 mls/hr IVCONT .Q10H [facility] Last Admin: 04/13/24 05:15 Dose: 100 mls/hr Documented By: RAMÍREZ Insulin Human Lispro (Insulin Lispro 100 Unit/Ml 3 Ml Vial) 0 unit SUBCUT QIDACHS [facility]; Protocol Last Admin: 04/13/24 12:31 Dose: 1 unit Documented By: KYLER Levothyroxine Sodium (Levothyroxine Sodium 100 Mcg Tablet) 100 mcg PO DAILY@0600 [facility] Last Admin: 04/13/24 05:15 Dose: 100 mcg Documented By: RAMÍREZ Magnesium Hydroxide (Milk Of Magnesia 30 Ml Oral.Susp) 30 ml PO DAILY PRN PRN Reason: Constipation Melatonin (Melatonin 3 Mg Tablet) 6 mg PO BEDTIME PRN PRN Reason: Insomnia Methylprednisolone Sodium Succinate (Methylprednisolone Sod Succ 40 Mg/Ml Vial) 40 mg IVPUSH BID [facility] Last Admin: 04/13/24 07:52 Dose: 40 mg Documented By: KYLER Naproxen (Naproxen 500 Mg Tablet) 500 mg PO Q12H PRN PRN Reason: pain (scale score 1-3) Ondansetron HCl (Ondansetron Hcl 4 Mg/2 Ml Vial) 4 mg IVPUSH Q8H PRN PRN Reason: Nausea and Vomiting Last Admin: 04/12/24 21:44 Dose: 4 mg Documented By: RAMÍREZ Ondansetron HCl (Ondansetron Odt 8 Mg Tab.Rapdis) 8 mg TRANSLINGU Q8H PRN PRN Reason: Nausea and Vomiting Last Admin: 04/12/24 22:31 Dose: 8 mg Documented By: RAMÍREZ Oseltamivir Phosphate (Oseltamivir Phosphate 75 Mg Capsule) 75 mg PO BID [facility] Stop: 04/16/24 21:01 Last Admin: 04/13/24 07:52 Dose: 75 mg Documented By: KYLER Sodium Chloride (0.9 % Sodium Chloride Flush 3 Ml Syringe) 3 ml IVFLUSH QSHIFT [facility] Last Admin: 04/13/24 07:52 Dose: 3 ml Documented By: KYLER Labs 04/13/24 06:04 04/13/24 06:04 Labs: Laboratory Results - last 24 hr 04/12/24 04/12/24 04/12/24 13:23 15:56 18:15 MCV MCH MCHC RDW Plt Count MPV Immature Gran % (Auto) Neut % (Auto) Lymph % (Auto) [place] % (Auto) Eos % (Auto) Baso % (Auto) Lymph # (Auto) [place] # (Auto) Eos # (Auto) Baso # (Auto) Abs Immat Gran (auto) Absolute Neuts (auto) Absolute Nucleated RBC Nucleated RBC % (auto) Anion Gap Estim Creat Clear Calc Estimated GFR POC Glucose 177 H 177 H 169 H Random Glucose Calcium 04/13/24 04/13/24 04/13/24 06:04 07:40 11:37 MCV 76.5 L MCH 24.3 L MCHC 31.8 RDW 20.0 H Plt Count 367 MPV 9.9 Immature Gran % (Auto) 0.8 H Neut % (Auto) 74.6 H Lymph % (Auto) 11.0 L [place] % (Auto) 13.2 H Eos % (Auto) 0.2 Baso % (Auto) 0.2 Lymph # (Auto) 1.2 [place] # (Auto) 1.5 H Eos # (Auto) 0.0 Baso # (Auto) 0.0 Abs Immat Gran (auto) 0.09 H Absolute Neuts (auto) 8.4 H Absolute Nucleated RBC 0.000 Nucleated RBC % (auto) 0.0 Anion Gap 15 Estim Creat Clear Calc 106.8 Estimated GFR > 60 POC Glucose 106 151 H Random Glucose 174 H Calcium 9.3 Microbiology Microbiology Results: Microbiology 04/12/24 00:39 Blood Culture - Preliminary Blood - Venous No growth after 24 hours. 04/12/24 00:39 Blood Culture - Preliminary Blood - Venous No growth after 24 hours. Assessment and Plan (1) Acute hypoxic respiratory failure: Status: Acute Assessment and Plan: 53-year-old female with a past medical history significant for asthma unspecified, anxiety, hypothyroid and type 2 diabetes, presented to the ED due to body aches, fever, shortness of breath, dry cough, fever, nausea and abdominal soreness for the past few days. Acute hypoxic respiratory failure secondary to asthma with acute exacerbation and flu A WBC 9.4, lactic acid normal, blood cultures x2 pending, no sepsis chest x-ray with mild interstitial opacities as can be seen with pneumonitis and pulmonary edema,flu A positive bnp normal plan: continue Solu-Medrol 40 mg b.i.d., oseltamivir 75 mg b.i.d., nebs steriods ,loratidine ,cough med wean oxygen dizziness improving:possible related to above. she felt dizzy but did not pass out. tele seems fine orthostasis negative no new symptoms . Influenza A- oseltamivir as above - supportive care,Tessalon as needed for cough Elevated LFT-thought to be AST and ALT very mildly elevated, likely secondary to fatty liver disease which was found to previous imaging moniter lft's if worsen further may need further workup Hypothyroid- continue levothyroxine Type 2 diabetes- no current medications, patient reported that she was taking Ozempic discontinued - sliding scale insulin - diabetic diet Obesity - BMI 48.5 - was on Ozempic, weight loss encouraged VTE prophylaxis: Lovenox Patient with acute hypoxic respiratory failure secondary to asthma exacerbation complicated by flu A-need s nebs,steriods ,tamiflu ,oxygen weaning , respiratory status not optimal yet. Quality Stroke Does the patient have a stroke diagnosis?: No VTE Prior VTE?: No VTE Risk Level:: Medical - moderate - high VTE Device Contraindication: Treatment Not Indicated VTE Drug Contraindication: N/A - Med Ordered
[2024-04-13 14:37] LABS: Alanine Aminotransferase 29 U/L (0-31); Albumin Level 3.9 g/dL (3.5-5.0); Alkaline Phosphatase 73 U/L (39-117); Aspartate Amino Transferase 39 U/L (5-31); Bilirubin Direct < 0.2 mg/dL (0.0-0.5); Bilirubin Total 0.1 mg/dL (0.0-1.0); Total Protein 7.2 g/dL (6.5-8.0)
--- NOTE | 2024-04-13 14:47 | P.CDIM_ITS ---
PROVIDER RESPONSE TEXT: To clarify, the appropriate diagnosis supported by the clinical indicators: Mild intermittent QUERY TEXT: PHYSICIAN'S DOCUMENTATION REQUEST Date of Query: 04/13/2024 05:41 AM EST Patient Name: Saumya Atkinson Admit Date: 04/12/2024 Dear Bruce Hernández MD, A review of the medical record indicates additional documentation may be needed. Please review below and update the documentation accordingly. Clinical indicators: Admitted for Acute hypoxic respiratory failure secondary to asthma with acute ex acerbation and flu A: Continue nebs, steroids, Tamiflu, wean oxygen. Based on the above, please clarify in the Progress Notes further specificity regarding the documented asthma exacerbation: Mild intermittent Mild persistent Moderate persistent Severe persistent Exercise induced Other (explain) Clinically unable to determine (explain) Thank you, Citlaly Hollis, CCS, CDIS Use of terms such as suspected, likely, concern for, or probable (associated with a specific diagnosi s that is being evaluated, monitored, or treated as if it exists) are acceptable and can be coded in the inpatient se tting, when documented at the time of discharge. Please use your independent medical judgment in providing your response. THIS QUERY IS PART OF THE PERMANENT MEDICAL RECORD
[2024-04-13 16:17] LABS: Glucose, Whole Blood 192 mg/dL (60-115)
[2024-04-13 21:06] LABS: Glucose, Whole Blood 95 mg/dL (60-115)
[2024-04-13] MEDS: Benzonatate 100 MG CAPSULE PO (21:23)
[2024-04-13] MEDS: Acetaminophen 325 MG TABLET 975 MG PO (21:23)
[2024-04-14] VITALS (14 sets, daily range): BP systolic 137–175; BP diastolic 60–105; PULSE 70–89; RESP 17–20; TEMP 36–37.1; O2SAT 91–98
[2024-04-14] MEDS: Albuterol Sulfate (0.083%) 2.5 MG/3 ML VIAL.NEB INHALE (02:07)
[2024-04-14] MEDS: guaiFENesin DM 600/30 1 TAB TAB.ER.12H PO ×2 (02:08→08:43)
--- NOTE | 2024-04-14 04:58 | PC.NURSE ---
Pt noted with persistent coughing, dyspnea after commode use and audible wheezing around 1am, Dr. Vargas was made aware, Guaifenisin tab and prn ALbuterol neb given, pt felt relief, was able to sleep after.
[2024-04-14] MEDS: Enoxaparin Sodium 40 MG/0.4 ML SYRINGE SUBCUT (05:04)
[2024-04-14] MEDS: Levothyroxine Sodium 100 MCG TABLET PO (05:04)
[2024-04-14 06:38] LABS: MANUAL DIFF FLAG NO
[2024-04-14 06:56] LABS: Basophils Percent Auto 0.1 % (0-2); Hematocrit 41.8 % (37.0-47.0); Hemoglobin 12.9 g/dl (12.0-16.0); Imm Gran Abs Auto 0.11 X10*3/uL (0.00-0.03); Lymphocytes Absolute Auto 1.1 X10*3/uL (1.2-4.9); Lymphocytes Percent Auto 9.1 % (20-40); Mean Corpuscular HGB Conc 30.9 g/dl (31.0-35.0); Mean Corpuscular Hemoglobin 23.6 pg (27.0-33.0); Mean Corpuscular Volume 76.4 fL (80.0-98.0); Mean Platelet Volume 9.7 fL (9.4-12.3); Monocytes Absolute Auto 0.9 X10*3/uL (0.1-1.2); Monocytes Percent Auto 7.7 % (2-11); Neutrophils Absolute Auto 9.4 x10*3/uL (2.0-8.3); Neutrophils Percent Auto 82.1 % (45-73); Platelet Count 399 X10*3/uL (160-400); Red Blood Count 5.47 X10*6/uL (4.20-5.50); Red Cell Distribution Width 20.1 % (11.0-16.0); White Blood Count 11.5 X10*3/uL (4.8-10.8)
[2024-04-14 07:00] LABS: Anion Gap 12 (12-20); Blood Urea Nitrogen 12 mg/dL (9-16); Calcium 9.1 mg/dL (8.4-10.2); Carbon Dioxide 25 mmol/L (22-29); Chloride 107 mmol/L (96-108); Creatinine Clr Calc Pharmacy 115.9; Estimated Glomerular Filt Rate > 60; Glucose Random 138 mg/dL (60-115); Potassium 4.4 mmol/L (3.3-5.1); Sodium 140 mmol/L (135-145)
[2024-04-14 07:44] LABS: Glucose, Whole Blood 111 mg/dL (60-115)
[2024-04-14] MEDS: levalbuterol HCL 2.5 MG, Ipratropium Bromide 0.5 MG INHALE ×4 (08:22→20:07)
[2024-04-14] MEDS: Benzonatate 100 MG CAPSULE PO (08:43)
[2024-04-14] MEDS: 0.9 % Sodium Chloride Flush 3 ML SYRINGE IVFLUSH ×3 (08:43→20:30)
[2024-04-14] MEDS: methylPREDNISolone Sod Succ 40 MG/ML VIAL IVPUSH ×2 (08:43→20:30)
[2024-04-14] MEDS: Oseltamivir Phosphate 75 MG CAPSULE PO ×2 (08:43→20:30)
[2024-04-14] MEDS: Ondansetron ODT 8 MG TAB.RAPDIS TRANSLINGU (10:07)
[2024-04-14 11:12] LABS: Glucose, Whole Blood 107 mg/dL (60-115)
[2024-04-14] MEDS: guaiFENesin DM 200/20/10 ML 10 ML SYRUP PO ×2 (13:18→20:30)
--- NOTE | 2024-04-14 15:44 | P.PNIM_ITS ---
Subjective Subjective Date of Service: 04/14/24 Interval History: seen and examined this morning follow up for asthma/flu coughing a lot to the point of dry heaving in between coughing fits feeling better but still requiring oxygen Review of Systems Review of Systems: Yes all other systems are reviewed and are negative Constitutional Constitutional: Denies chills and Denies fever(s) Cardiovascular Cardiovascular: Denies chest pain Respiratory Respiratory: Reports cough Gastrointestinal Gastrointestinal: Denies abdominal pain Physical Exam 2 Vital Signs: Vital Signs: Last Vital Signs Temp 97.6 F 04/14/24 11:46 Pulse 77 04/14/24 11:46 Resp 20 04/14/24 11:46 BP 163/88 H 04/14/24 11:46 Pulse Ox 92 04/14/24 11:46 O2 Del Method Nasal Cannula 04/14/24 11:46 O2 Flow Rate 3 04/14/24 11:46 BMI result Body Mass Index 48.5 Const: General: alert, awake and Physically active Nutritional Appearance: obese Orientation/consciousness: patient oriented x3 Resp: Other: scattered wheeze Effort & Inspection: normal respiratory effort, able to speak in complete sentences, no respiratory distress and no use of accessory muscles Cardio: Rate: regular rate GI: Inspection: No distended Palpation (GI): Soft to palpation Neuro: General: patient oriented x3, moves all extremities and CN's II-XI intact bilaterally Objective Data Active Medications Acetaminophen (Acetaminophen 325 Mg Tablet) 975 mg PO Q6H PRN PRN Reason: Pain, Mild 1-3,fever,headache Last Admin: 04/13/24 21:23 Dose: 975 mg Documented By: JOSIAH Acetaminophen/Butalbital/Caffeine (Butalb/Acetamin/Caff 50/325/40 Tablet) 1 tab PO Q6H PRN PRN Reason: Headache Last Admin: 04/12/24 19:47 Dose: 1 tab Documented By: RAMÍREZ Albuterol Sulfate (Albuterol Sulfate (0.083%) 2.5 Mg/3 Ml Vial.Neb) 2.5 mg INHALE Q3H PRN PRN Reason: Shortness of Breath/Wheezing Last Admin: 04/14/24 02:07 Dose: 2.5 mg Documented By: GALI Calcium Carbonate (Calcium Carbonate 750 Mg Tab.Chew) 750 mg PO Q4H PRN PRN Reason: Heartburn Last Admin: 04/12/24 21:44 Dose: 750 mg Documented By: RAMÍREZ Levalbuterol HCl 2.5 mg/ (Ipratropium [place] 0.5 mg) 0 mg INHALE RQ4H WHILE AWAKE [facility] Last Admin: 04/14/24 11:38 Dose: 1 dose Documented By: BA Enoxaparin Sodium (Enoxaparin Sodium 40 Mg/0.4 Ml Syringe) 40 mg SUBCUT Q24H [facility] Last Admin: 04/14/24 05:04 Dose: 40 mg Documented By: JOSIAH Glucose (Glucose Gel 15 Gm Gel..Gram.) 15 gm PO Q15M PRN; Protocol PRN Reason: per Hypoglycemia Standing Ord. Guaifenesin/Dextromethorphan (Guaifenesin Dm 200/20/10 Ml 10 Ml Syrup) 10 ml PO Q4H PRN PRN Reason: Cough Last Admin: 04/14/24 13:18 Dose: 10 ml Documented By: KLEVER Dextrose (D10) 250 mls @ 750 mls/hr IV Q15M PRN; Protocol PRN Reason: per Hypoglycemia Standing Ord. Insulin Human Lispro (Insulin Lispro 100 Unit/Ml 3 Ml Vial) 0 unit SUBCUT QIDACHS [facility]; Protocol Last Admin: 04/14/24 11:35 Dose: Not Given Documented By: KLEVER Non-Admin Reason: No Insulin Coverage Levothyroxine Sodium (Levothyroxine Sodium 100 Mcg Tablet) 100 mcg PO DAILY@0600 [facility] Last Admin: 04/14/24 05:04 Dose: 100 mcg Documented By: JOSIAH Magnesium Hydroxide (Milk Of Magnesia 30 Ml Oral.Susp) 30 ml PO DAILY PRN PRN Reason: Constipation Melatonin (Melatonin 3 Mg Tablet) 6 mg PO BEDTIME PRN PRN Reason: Insomnia Methylprednisolone Sodium Succinate (Methylprednisolone Sod Succ 40 Mg/Ml Vial) 40 mg IVPUSH BID [facility] Last Admin: 04/14/24 08:43 Dose: 40 mg Documented By: KLEVER Naproxen (Naproxen 500 Mg Tablet) 500 mg PO Q12H PRN PRN Reason: pain (scale score 1-3) Ondansetron HCl (Ondansetron Hcl 4 Mg/2 Ml Vial) 4 mg IVPUSH Q8H PRN PRN Reason: Nausea and Vomiting Last Admin: 04/12/24 21:44 Dose: 4 mg Documented By: RAMÍREZ Ondansetron HCl (Ondansetron Odt 8 Mg Tab.Rapdis) 8 mg TRANSLINGU Q8H PRN PRN Reason: Nausea and Vomiting Last Admin: 04/14/24 10:07 Dose: 8 mg Documented By: KENDAL Oseltamivir Phosphate (Oseltamivir Phosphate 75 Mg Capsule) 75 mg PO BID [facility] Stop: 04/16/24 21:01 Last Admin: 04/14/24 08:43 Dose: 75 mg Documented By: KLEVER Sodium Chloride (0.9 % Sodium Chloride Flush 3 Ml Syringe) [facility] Last Admin: 04/14/24 08:43 Dose: 3 ml Documented By: KLEVER Labs 04/14/24 06:30 04/14/24 06:30 Labs: Laboratory Results - last 24 hr 04/13/24 04/13/24 04/14/24 16:09 20:49 06:30 MCV 76.4 L MCH 23.6 L MCHC 30.9 L RDW 20.1 H Plt Count 399 MPV 9.7 Immature Gran % (Auto) 1.0 H Neut % (Auto) 82.1 H Lymph % (Auto) 9.1 L [place] % (Auto) 7.7 Eos % (Auto) 0.0 Baso % (Auto) 0.1 Lymph # (Auto) 1.1 L [place] # (Auto) 0.9 Eos # (Auto) 0.0 Baso # (Auto) 0.0 Abs Immat Gran (auto) 0.11 H Absolute Neuts (auto) 9.4 H Absolute Nucleated RBC 0.000 Nucleated RBC % (auto) 0.0 Anion Gap 12 Estim Creat Clear Calc 115.9 Estimated GFR > 60 POC Glucose 192 H 95 Random Glucose 138 H Calcium 9.1 04/14/24 04/14/24 07:39 11:04 MCV MCH MCHC RDW Plt Count MPV Immature Gran % (Auto) Neut % (Auto) Lymph % (Auto) [place] % (Auto) Eos % (Auto) Baso % (Auto) Lymph # (Auto) [place] # (Auto) Eos # (Auto) Baso # (Auto) Abs Immat Gran (auto) Absolute Neuts (auto) Absolute Nucleated RBC Nucleated RBC % (auto) Anion Gap Estim Creat Clear Calc Estimated GFR POC Glucose 111 107 Random Glucose Calcium Microbiology Microbiology Results: Microbiology 04/12/24 00:39 Blood Culture - Preliminary Blood - Venous No growth after 48 hours. 04/12/24 00:39 Blood Culture - Preliminary Blood - Venous No growth after 48 hours. Assessment and Plan (1) Morbid obesity with BMI of 45.0-49.9, adult: Status: Acute (2) Acute hypoxic respiratory failure: Status: Acute (3) Influenza A: Status: Acute (4) Asthma with acute exacerbation: Status: Acute Plan This is a 53-year-old female with a past medical history significant for asthma unspecified, anxiety, hypothyroid and type 2 diabetes, presented to the ED due to body aches, fever, shortness of breath, dry cough, fever, nausea and abdominal soreness for the past few days. Acute hypoxic respiratory failure secondary to asthma exacerbation due to flu A no sepsis continue Solu-Medrol 40 mg b.i.d., oseltamivir 75 mg b.i.d., nebs, supportive care wean oxygen as tolerated dizziness improving: likely related to above. she felt dizzy but did not pass out. no events on tele, orthostasis negative Elevated LFT likely secondary to fatty liver disease which was found to previous imaging Hypothyroid- continue levothyroxine Type 2 diabetes- no current medications On Ozempic at baseline sliding scale insulin diabetic diet JOHNNY cpap (home machine broken) Obesity BMI 48.5 was on Ozempic, weight loss encouraged VTE prophylaxis: Lovenox Patient with acute hypoxic respiratory failure secondary to asthma exacerbation complicated by flu A-need s nebs,steriods ,tamiflu ,oxygen weaning , respiratory status not optimal yet. Quality Stroke Does the patient have a stroke diagnosis?: No VTE Prior VTE?: No VTE Risk Level:: Medical - moderate - high VTE Device Contraindication: Treatment Not Indicated VTE Drug Contraindication: N/A - Med Ordered
[2024-04-14 16:12] LABS: Glucose, Whole Blood 160 mg/dL (60-115)
[2024-04-14] MEDS: Insulin Lispro 100 UNIT/ML 3 ML VIAL SUBCUT (16:47)
[2024-04-14 20:32] LABS: Glucose, Whole Blood 136 mg/dL (60-115)
[2024-04-15] VITALS (7 sets, daily range): BP systolic 112–169; BP diastolic 61–92; PULSE 71–83; RESP 17–20; TEMP 36.1–36.6; O2SAT 91–98
[2024-04-15] MEDS: Enoxaparin Sodium 40 MG/0.4 ML SYRINGE SUBCUT (04:24)
[2024-04-15] MEDS: guaiFENesin DM 200/20/10 ML 10 ML SYRUP PO ×2 (04:24→13:26)
[2024-04-15] MEDS: Albuterol Sulfate (0.083%) 2.5 MG/3 ML VIAL.NEB INHALE (04:51)
[2024-04-15] MEDS: Levothyroxine Sodium 100 MCG TABLET PO (05:39)
[2024-04-15 07:45] LABS: Glucose, Whole Blood 98 mg/dL (60-115)
[2024-04-15] MEDS: methylPREDNISolone Sod Succ 40 MG/ML VIAL IVPUSH ×3 (07:59→20:39)
[2024-04-15] MEDS: 0.9 % Sodium Chloride Flush 3 ML SYRINGE IVFLUSH ×3 (07:59→20:40)
[2024-04-15] MEDS: Oseltamivir Phosphate 75 MG CAPSULE PO ×2 (08:00→20:40)
[2024-04-15] MEDS: Calcium Carbonate 750 MG TAB.CHEW PO (08:00)
[2024-04-15] MEDS: levalbuterol HCL 2.5 MG, Ipratropium Bromide 0.5 MG INHALE ×3 (08:27→19:34)
[2024-04-15 12:09] LABS: Glucose, Whole Blood 121 mg/dL (60-115)
[2024-04-15] MEDS: Fluticasone Propionate Nasal 16 GM SPRAY 1 SPRAY NOSTRIL-B ×2 (13:26→20:50)
--- NOTE | 2024-04-15 14:12 | P.PNIM_ITS ---
Subjective Subjective Date of Service: 04/15/24 Interval History: seen and examined this morning follow up for asthma/flu starting to feel better; still sob with coughing and wheezing Review of Systems Review of Systems: Yes all other systems are reviewed and are negative Constitutional Constitutional: Denies chills and Denies fever(s) Cardiovascular Cardiovascular: Denies chest pain, Denies palpitations and Denies dyspnea Respiratory Respiratory: Denies cough and Denies dyspnea Gastrointestinal Gastrointestinal: Denies abdominal pain, Denies nausea and Denies vomiting Endocrine Endocrine: Denies palpitations Physical Exam 2 Vital Signs: Vital Signs: Last Vital Signs Temp 97.4 F 04/15/24 12:26 Pulse 79 04/15/24 12:45 Resp 17 04/15/24 12:45 BP 140/70 H 04/15/24 12:26 Pulse Ox 93 04/15/24 12:26 O2 Del Method Room Air 04/15/24 12:26 O2 Flow Rate 3 04/15/24 03:22 BMI result Body Mass Index 48.5 Const: General: alert, awake and Physically active Nutritional Appearance: obese Orientation/consciousness: patient oriented x3 Resp: Other: b/l wheezing Effort & Inspection: normal respiratory effort, able to speak in complete sentences, no respiratory distress and no use of accessory muscles Cardio: Rate: regular rate GI: Inspection: No distended Palpation (GI): Soft to palpation Neuro: General: patient oriented x3, moves all extremities and CN's II-XI intact bilaterally Objective Data Active Medications Acetaminophen (Acetaminophen 325 Mg Tablet) 975 mg PO Q6H PRN PRN Reason: Pain, Mild 1-3,fever,headache Last Admin: 04/13/24 21:23 Dose: 975 mg Documented By: JOSIAH Acetaminophen/Butalbital/Caffeine (Butalb/Acetamin/Caff 50/325/40 Tablet) 1 tab PO Q6H PRN PRN Reason: Headache Last Admin: 04/12/24 19:47 Dose: 1 tab Documented By: RAMÍREZ Albuterol Sulfate (Albuterol Sulfate (0.083%) 2.5 Mg/3 Ml Vial.Neb) 2.5 mg INHALE Q3H PRN PRN Reason: Shortness of Breath/Wheezing Last Admin: 04/15/24 04:51 Dose: 2.5 mg Documented By: URI Calcium Carbonate (Calcium Carbonate 750 Mg Tab.Chew) 750 mg PO Q4H PRN PRN Reason: Heartburn Last Admin: 04/15/24 08:00 Dose: 750 mg Documented By: KLEVER Levalbuterol HCl 2.5 mg/ (Ipratropium [place] 0.5 mg) 0 mg INHALE RQ4H WHILE AWAKE [facility] Last Admin: 04/15/24 12:43 Dose: 2 dose Documented By: CYNDI Enoxaparin Sodium (Enoxaparin Sodium 40 Mg/0.4 Ml Syringe) 40 mg SUBCUT Q24H [facility] Last Admin: 04/15/24 04:24 Dose: 40 mg Documented By: JOSIAH Fluticasone Propionate (Fluticasone Propionate Nasal 16 Gm [place]) 1 spray NOSTRIL-B BID [facility] Last Admin: 04/15/24 13:26 Dose: 1 spray Documented By: KLEVER Glucose (Glucose Gel 15 Gm Gel..Gram.) 15 gm PO Q15M PRN; Protocol PRN Reason: per Hypoglycemia Standing Ord. Guaifenesin/Dextromethorphan (Guaifenesin Dm 200/20/10 Ml 10 Ml Syrup) 10 ml PO Q4H PRN PRN Reason: Cough Last Admin: 04/15/24 13:26 Dose: 10 ml Documented By: KLEVER Dextrose (D10) 250 mls @ 750 mls/hr IV Q15M PRN; Protocol PRN Reason: per Hypoglycemia Standing Ord. Insulin Human Lispro (Insulin Lispro 100 Unit/Ml 3 Ml Vial) 0 unit SUBCUT QIDACHS [facility]; Protocol Last Admin: 04/15/24 12:10 Dose: Not Given Documented By: KLEVER Non-Admin Reason: No Insulin Coverage Levothyroxine Sodium (Levothyroxine Sodium 100 Mcg Tablet) 100 mcg PO DAILY@0600 [facility] Last Admin: 04/15/24 05:39 Dose: 100 mcg Documented By: JOSIAH Magnesium Hydroxide (Milk Of Magnesia 30 Ml Oral.Susp) 30 ml PO DAILY PRN PRN Reason: Constipation Melatonin (Melatonin 3 Mg Tablet) 6 mg PO BEDTIME PRN PRN Reason: Insomnia Methylprednisolone Sodium Succinate (Methylprednisolone Sod Succ 40 Mg/Ml Vial) 40 mg IVPUSH Q8H [facility] Last Admin: 04/15/24 13:27 Dose: 40 mg Documented By: KLEVER Naproxen (Naproxen 500 Mg Tablet) 500 mg PO Q12H PRN PRN Reason: pain (scale score 1-3) Ondansetron HCl (Ondansetron Hcl 4 Mg/2 Ml Vial) 4 mg IVPUSH Q8H PRN PRN Reason: Nausea and Vomiting Last Admin: 04/12/24 21:44 Dose: 4 mg Documented By: RAMÍREZ Ondansetron HCl (Ondansetron Odt 8 Mg Tab.Rapdis) 8 mg TRANSLINGU Q8H PRN PRN Reason: Nausea and Vomiting Last Admin: 04/14/24 10:07 Dose: 8 mg Documented By: KENDAL Oseltamivir Phosphate (Oseltamivir Phosphate 75 Mg Capsule) 75 mg PO BID [facility] Stop: 04/16/24 21:01 Last Admin: 04/15/24 08:00 Dose: 75 mg Documented By: KLEVER Sodium Chloride (0.9 % Sodium Chloride Flush 3 Ml Syringe) 3 ml IVFLUSH [facility] Last Admin: 04/15/24 07:59 Dose: 3 ml Documented By: KLEVER Labs 04/14/24 06:30 04/14/24 06:30 Labs: Laboratory Results - last 24 hr 04/14/24 04/14/24 04/15/24 16:07 20:18 07:27 POC Glucose 160 H 136 H 98 04/15/24 11:42 POC Glucose 121 H Assessment and Plan (1) Acute hypoxic respiratory failure: Status: Acute (2) Morbid obesity with BMI of 45.0-49.9, adult: Status: Acute (3) Influenza A: Status: Acute Plan This is a 53-year-old female with a past medical history significant for asthma unspecified, anxiety, hypothyroid and type 2 diabetes, presented to the ED due to body aches, fever, shortness of breath, dry cough, fever, nausea and abdominal soreness for the past few days. Acute hypoxic respiratory failure secondary to asthma exacerbation due to flu A no sepsis continue Solu-Medrol 40 - will increase to q8h continue oseltamivir 75 mg b.i.d., nebs, supportive care wean oxygen as tolerated - off oxygen dizziness improving: likely related to above. she felt dizzy but did not pass out. no events on tele, orthostasis negative Elevated LFT likely secondary to fatty liver disease seen on previous imaging Hypothyroid continue levothyroxine Type 2 diabetes- no current medications hold metformin, Ozempic sliding scale insulin diabetic diet JOHNNY cpap (home machine broken) Obesity BMI 48.5 was on Ozempic, weight loss encouraged VTE prophylaxis: Lovenox Patient with acute hypoxic respiratory failure secondary to asthma exacerbation complicated by flu A-need s nebs,steriods ,tamiflu ,oxygen weaning , respiratory status not optimal yet. Quality Stroke Does the patient have a stroke diagnosis?: No VTE Prior VTE?: No VTE Risk Level:: Medical - moderate - high VTE Device Contraindication: Treatment Not Indicated VTE Drug Contraindication: N/A - Med Ordered
--- NOTE | 2024-04-15 15:36 | P.DS_ITS ---
DS: Providers Provider Date of Service: 04/16/24 <Margarita Segal NP - Last Filed: 04/16/24 08:07> Date of admission: 04/12/24 03:42 <JOANN Briseno - Last Filed: 04/15/24 15:47> Date of discharge: 04/16/24 <Margarita Segal NP - Last Filed: 04/16/24 08:07> Primary care physician: JOANN Pyle <JOANN Briseno - Last Filed: 04/15/24 15:47> DS: Diagnosis Discharge Diagnosis (1) Acute hypoxic respiratory failure: Status: Acute <JOANN Briseno - Last Filed: 04/15/24 15:47> (2) Morbid obesity with BMI of 45.0-49.9, adult: Status: Acute <JONAN Briseno - Last Filed: 04/15/24 15:47> (3) Influenza A: Status: Acute <JOANN Briseno - Last Filed: 04/15/24 15:47> DS: Summary Hospital Course Hospital Course: From H&P on the day of admission Patient is a 53-year-old female with a past medical history significant for asthma unspecified, anxiety, hypothyroid and type 2 diabetes, presented to the ED due to body aches, fever, shortness of breath, dry cough, fever, nausea and abdominal soreness for the past few days. She was hypoxic on arrival ED % on room air, with improvement in the mid 90s on 2 L O2 via NC. Reports overall feeling terribly. She has been wheezing a lot and using her albuterol way more than I should . She has generalized abdominal soreness which occurs mostly with just coughing. She denies any urinary symptoms including dysuria, frequency or urgency. Acute hypoxic respiratory failure secondary to asthma exacerbation due to flu A she was started on Tamiflu and treated with systemic steroids, breathing treatments and supplemental oxygen. Overall several days her breathing, coughing and wheezing slowly improved. She was able to be weaned off of supplemental oxygen. dizziness. improving: likely related to above. no events on tele, orthostasis negative mildly Elevated LFTs-likely secondary to fatty liver disease seen on previous imaging JOHNNY-patient reports that her CPAP machine is not working. She was instructed to call her supply company to request new device. Morbid obesity. Likely contributing to medical/respiratory issues. Weight loss encouraged <JOANN Briseno - Last Filed: 04/15/24 15:47> Time Attestation Discharge Coordination Time (in mins): 36 <JOANN Briseno - Last Filed: 04/15/24 15:47> Quality: Safe Use of Opioids Does Pt have an Active Cancer Diagnosis on the Problem List?: No <JOANN Briseno - Last Filed: 04/15/24 15:47> Quality: Stroke Does the patient have a stroke diagnosis?: No <JOANN Briseno - Last Filed: 04/15/24 15:47> Physical Exam Vital Signs: Vital Signs: Last Vital Signs Temp 97.4 F 04/15/24 12:26 Pulse 79 04/15/24 12:45 Resp 17 04/15/24 12:45 BP 140/70 H 04/15/24 12:26 Pulse Ox 93 04/15/24 12:26 O2 Del Method Room Air 04/15/24 12:26 O2 Flow Rate 3 04/15/24 03:22 BMI result Body Mass Index 48.5 <JOANN Briseno - Last Filed: 04/15/24 15:47> Appearing in no acute distress head is normocephalic atraumatic eyes pupils are PERRLA sclera is anicteric mouth throat mucous membranes are intact and moist neck is supple no lymphadenopathy, no JVD noted lung sounds are clear to auscultation heart regular rate rhythm, clear S1, S2 positive bowel sounds, abdomen is soft, nontender neuro patient is alert x3, no focal deficits <Margarita Segal NP - Last Filed: 04/16/24 08:07> DS: Data Data Completed and Pending Labs on day of discharge: Laboratory Results - last 24 hr 04/14/24 04/14/24 04/15/24 16:07 20:18 07:27 POC Glucose 160 H 136 H 98 04/15/24 11:42 POC Glucose 121 H Preliminary micro results at discharge 04/12/24 00:39 Blood Culture - Preliminary Blood - Venous No growth after 48 hours. 04/12/24 00:39 Blood Culture - Preliminary Blood - Venous No growth after 48 hours. <JOANN Briseno - Last Filed: 04/15/24 15:47> Discharge Plan Discharge Anticipated Discharge Date/Time: 04/16/24 08:02 <JOANN Briseno - Last Filed: 04/15/24 15:47> Patient Disposition: Home, Self-Care <JOANN Briseno - Last Filed: 04/15/24 15:47> Discharge Diagnosis: Acute respiratory failure due to asthma exacerbation and influenza A <JOANN Briseno - Last Filed: 04/15/24 15:47> Acute respiratory failure due to asthma exacerbation and influenza A <Margarita eSgal NP - Last Filed: 04/16/24 08:07> Referrals: Carlyn Gutiérrez PA [Primary Care Provider] - 1 Week <JOANN Briseno - Last Filed: 04/15/24 15:47> Discharge Medications: New prednisone 20 mg tablet 40 mg PO DAILY 5 Days Qty: 10 0RF Continued levothyroxine 100 mcg tablet 1 tab PO DAILY@0600 [id number]-[id number]-ziln [Fioricet] 50-300-40 mg capsule 1 cap PO Q6H PRN (Reason: Headache) Qty: 20 0RF naproxen 500 mg tablet 500 mg PO Q12H PRN (Reason: pain (scale score 1-3)) Qty: 20 0RF albuterol sulfate 90 mcg/actuation HFA aerosol inhaler 2 puff inhalation Q4H PRN (Reason: shortness of breath or wheezing) fluticasone propion-salmeterol [Advair Diskus] 500-50 mcg/dose Blister With Device 1 inh INHALATION BID metformin 500 mg Tablet Extended Release 24 Hr 500 mg PO BID <JOANN Briseno - Last Filed: 04/15/24 15:47> Discharge Orders: Discharge Order (Routine); Ordered 04/16/24 Ordered By: Margarita Segal <JOANN Briseno - Last Filed: 04/15/24 15:47> Diet: Advance to usual diet <JOANN Briseno - Last Filed: 04/15/24 15:47> Advance to usual diet <Margarita Segal NP - Last Filed: 04/16/24 08:07> Activity on Discharge: As tolerated <JOANN Briseno - Last Filed: 04/15/24 15:47> As tolerated <Margarita Segal NP - Last Filed: 04/16/24 08:07> Stand Alone Forms: Patient Portal Discharge page <JOANN Briseno - Last Filed: 04/15/24 15:47> Print Language: [place] <JOANN Briseno - Last Filed: 04/15/24 15:47> Care Plan Goals: See below <JOANN Briseno - Last Filed: 04/15/24 15:47> Health Concerns: Acute asthma exacerbation due to influenza a <JOANN Briseno - Last Filed: 04/15/24 15:47> Plan of Treatment: Complete course of steroids as prescribed Call to schedule follow-up appointment with PCP as needed Call CPAP company to obtain new machine <JOANN Briseno - Last Filed: 04/15/24 15:47> Assessment: See discharge summary <JOANN Briseno - Last Filed: 04/15/24 15:47>
[2024-04-15 16:35] LABS: Glucose, Whole Blood 197 mg/dL (60-115)
[2024-04-15] MEDS: Insulin Lispro 100 UNIT/ML 3 ML VIAL SUBCUT ×2 (16:57→20:39)
[2024-04-15 19:40] LABS: Glucose, Whole Blood 196 mg/dL (60-115)
[2024-04-16] VITALS: BP 137/62; PULSE 83; RESP 18; TEMP 36.2; O2SAT 95
[2024-04-16 04:00] VITALS: BP 132/60; PULSE 82; RESP 18; TEMP 36.3; O2SAT 97
[2024-04-16] MEDS: methylPREDNISolone Sod Succ 40 MG/ML VIAL IVPUSH (04:23)
[2024-04-16] MEDS: Enoxaparin Sodium 40 MG/0.4 ML SYRINGE SUBCUT (04:23)
[2024-04-16] MEDS: Calcium Carbonate 750 MG TAB.CHEW PO (04:26)
[2024-04-16] MEDS: Levothyroxine Sodium 100 MCG TABLET PO (05:47)
[2024-04-16 07:28] VITALS: BP 156/72; PULSE 73; RESP 18; TEMP 36.1; O2SAT 92
[2024-04-16 07:45] LABS: Glucose, Whole Blood 122 mg/dL (60-115)
[2024-04-16 08:18] VITALS: PULSE 64; RESP 18; O2SAT 93
[2024-04-16] MEDS: levalbuterol HCL 2.5 MG, Ipratropium Bromide 0.5 MG INHALE (08:18)
--- NOTE | 2024-04-16 08:41 | MHC.CM.PN ---
Patient medically cleared for dc home self care. Per RN, private transport at bedside.
[2024-04-16 09:03] VITALS: BP 167/92; PULSE 102; RESP 19; TEMP 36.1; O2SAT 92
[2024-04-16] MEDS: Oseltamivir Phosphate 75 MG CAPSULE PO (09:06)
== END 2024-04-16 09:15 | disposition home or self-care (01) | DRG 113 ==
LOC: HO.ED 02:40 → HO.EDOVER 05:23 → HO.S3 16:41
PROVIDERS: Internal Medicine; Physician Assistant Medical; Admitting Provider Physician Assistant; Emergency Provider Emergency Medicine; PCP Physician Assistant Medical; Visit Provider Nurse Practitioner Acute Care
DX: J10.1 Influenza due to other identified influenza virus with other respiratory manifestations (principal); J96.01 Acute respiratory failure with hypoxia; J45.21 Mild intermittent asthma with (acute) exacerbation; G47.33 Obstructive sleep apnea (adult) (pediatric); E66.01 Morbid (severe) obesity due to excess calories; Z68.42 Body mass index [BMI] 45.0-49.9, adult; Z71.3 Dietary counseling and surveillance; K76.0 Fatty (change of) liver, not elsewhere classified; E03.9 Hypothyroidism, unspecified; Z79.51 Long term (current) use of inhaled steroids; Z79.84 Long term (current) use of oral hypoglycemic drugs; Z79.899 Other long term (current) drug therapy
CPT/HCPCS: 0241U; 36415; 71045; 80048; 80053; 80076; 81001; 82947; 83605; 83690; 83735; 83880; 85025; 86140; 87040; 93005; 94640; 99285; J0131; J1650; J1885; J2405; J2919

== ENCOUNTER → 2024-04-12 00:19 | Outpatient (BNV) | payer OTHER, SELFPAY | PROVIDERS: Admitting Provider Physician Assistant; Emergency Provider Emergency Medicine; PCP Physician Assistant Medical; Visit Provider Internal Medicine Cardiovascular Disease | DX: R55 Syncope and collapse (principal); R00.0 Tachycardia, unspecified | CPT/HCPCS: 93010 ==

== ENCOUNTER → 2024-04-12 01:26 | Outpatient (BNV) | payer OTHER, SELFPAY | PROVIDERS: Emergency Provider Emergency Medicine; PCP Physician Assistant Medical; Visit Provider Radiology Neuroradiology | DX: R06.02 Shortness of breath (principal); R05.9 Cough, unspecified; R50.9 Fever, unspecified | CPT/HCPCS: 71045 ==

== ENCOUNTER → 2024-04-12 03:42 | Outpatient (BNV) | payer OTHER, SELFPAY | PROVIDERS: Admitting Provider Physician Assistant; Emergency Provider Emergency Medicine; PCP Physician Assistant Medical; Visit Provider Internal Medicine | DX: J96.01 Acute respiratory failure with hypoxia (principal); E66.01 Morbid (severe) obesity due to excess calories; Z68.42 Body mass index [BMI] 45.0-49.9, adult; J10.1 Influenza due to other identified influenza virus with other respiratory manifestations | CPT/HCPCS: 99223; 99232; 99239; 99499 ==

== ENCOUNTER 2024-08-10 08:48 | Emergency (ER) | payer OTHER, SELFPAY ==
[2024-08-10 08:52] VITALS: BP 128/82; PULSE 78; RESP 18; TEMP 37.1; O2SAT 96; BMI 48.5
--- NOTE | 2024-08-10 09:18 | ED_ITS ---
HPI - General Adult General Chief complaint: Allergic Reaction Stated complaint: Swollen Tongue Hives Allergic Rx Time Seen by Provider: 08/10/24 09:13 Source: patient Mode of arrival: ambulatory Limitations: no limitations History of Present Illness ED Provider: Tianna Merritt PA-C HPI narrative: Patient is a 53 year old assigned female at with a history of DM, asthma, and recent episode of idiopathic urticaria presenting to the emergency department today with lower lip swelling, itchy throat, and hives. Patient states that last month she was seen at [facility] for hives, given benadryl, and did better. Patient states that this morning she woke up with lower lip swelling, an itchy throat, and hives everywhere. Patient states that she is not sure what the cause is. Patient denies any dizziness, lightheadedness, abdominal pain, nausea, vomiting, fever, chills, blurry vision, double vision, loss of vision, chest pain, difficulty breathing, shortness of breath, back pain, night sweats, pain with urination, increased urinary frequency, increased urinary urgency, blood in her urine or stool, syncope or a near syncopal episode, recent trauma or falls, bowel incontinence, bladder incontinence, or any other complaints at this time. Relieving factors: none Exacerbating factors: none Associated symptoms: rash Treatments prior to arrival: none Related Data Home Medications ?Medication ?Instructions ?Recorded ?Confirmed levothyroxine 100 mcg tablet 1 tab PO DAILY@0600 08/12/20 04/12/24 albuterol sulfate 90 mcg/actuation 2 puff inhalation Q4H PRN 04/12/24 04/12/24 aerosol inhaler shortness of breath or wheezing fluticasone 500 mcg-salmeterol 50 1 inh inhalation BID 04/12/24 04/12/24 mcg/dose blistr powdr for inhalation (Advair Diskus) metformin 500 mg tablet,extended 500 mg PO BID 04/12/24 04/12/24 release 24 hr Previous Rx's ?Medication ?Instructions ?Recorded zmvysepnqe-yvyubyklpszej-lnwanydv 1 cap PO Q6H PRN Headache #20 caps 12/02/20 50 mg-300 mg-40 mg capsule (Fioricet) naproxen 500 mg tablet 500 mg PO Q12H PRN pain (scale 02/27/24 score 1-3) #20 tabs prednisone 20 mg tablet 40 mg (2 x 20 mg) PO DAILY 5 days 04/15/24 #10 tabs epinephrine 0.3 mg/0.3 mL 0.3 mg (0.3 mL) IM Q10M PRN 08/10/24 injection, auto-injector (EpiPen) anaphylaxis #2 ea loratadine 10 mg tablet 10 mg PO DAILY #30 tabs 08/10/24 prednisone 20 mg tablet See Rx Instructions .Route 08/10/24 .COMPLEX 9 days #18 tabs Allergies Allergy/AdvReac Type Severity Reaction Status Date / Time peanut [PEANUT] Allergy Severe ANAPHYAXIS Verified 08/10/24 08:57 Penicillins [PENICILLINS] Allergy Intermediate HIVES Verified 08/10/24 08:57 latex [LATEX] Allergy Unknown HIVES, Verified 08/10/24 08:57 SWELLING metronidazole [From FLAGYL] Allergy Unknown UNK Verified 08/10/24 08:57 sumatriptan AdvReac Fainting Verified 08/10/24 08:57 Review of Systems 2 Constitutional: Constitutional: Reports no additional constitutional complaints, Denies chills, Denies fever(s) and Denies night sweats Eyes: Eyes: Reports no additional eye complaints, Denies blurry vision, Denies change in vision, Denies diplopia, Denies eye discharge, Denies loss of vision and Denies eye pain ENT: Denies dizziness Comments: lower lip swelling itchy / scratchy throat Cardiovascular: Cardiovascular: Reports no additional cardiovascular complaints, Denies chest pain, Denies lightheadedness, Denies Loss of Consciousness and Denies dyspnea Respiratory: Respiratory: Reports no additional respiratory complaints and Denies dyspnea Gastrointestinal: Gastrointestinal: Reports no additional gastrointestinal complaints, Denies abdominal pain, Denies melena, Denies hematochezia, Denies change in bowel habits and Denies change in stool character Genitourinary: Genitourinary: Denies hematuria, Denies urinary frequency, Denies dysuria, Denies urinary incontinence, Denies urinary hesitancy and Denies urinary urgency Musculoskeletal: Musculoskeletal: Reports no additional musculoskeletal complaints, Denies numbness and Denies tingling Integumentary/Breasts: Comments: hives to the back Neurologic: Denies dizziness, Denies loss of vision, Denies numbness and Denies tingling Psychiatric: Psychiatric: Reports no additional psychiatric complaints Endocrine: Endocrine: Reports no additional endocrine complaints Hematologic/Lymphatic: Hematologic/Lymphatic: Reports no additional hematologic/lymphatic complaints Allergic/Immunologic: Allergic/Immunologic: Reports no additional allergic/immunologic complaints [facility] Past Medical History Attestation statement: The following information was validated with the patient. Source: old records reviewed and nursing notes reviewed Medical History Morbid obesity with BMI of 45.0-49.9, adult Type 2 diabetes mellitus without complications Anxiety Hypothyroidism Asthma Social History Social History Household Members: Family Household Members Other:: and 3 granddaughters Housing: Apartment Do you presently have visiting nurse or other home services: No Alcohol intake: never Patient Tobacco Use Status: Never used Tobacco Second Hand Smoke Exposure: No Advance Directives: No Advance Directives Information Provided: Yes service: No Physical Exam ED Vital Signs: Vital Signs - 24 hr 08/10/24 08:52 08/10/24 09:36 08/10/24 11:03 Temperature 98.8 F Pulse Rate 78 73 77 Respiratory Rate 18 Blood Pressure 128/82 142/75 H 118/53 L Pulse Oximetry 96 Oxygen Delivery Method Room Air 08/10/24 12:42 08/10/24 14:53 Temperature 97.7 F 97.7 F Pulse Rate 96 96 Respiratory Rate 18 18 Blood Pressure 140/77 H 140/77 H Pulse Oximetry 96 96 Oxygen Delivery Method Room Air Room Air BMI result Body Mass Index 48.5 Const General: cooperative, no acute distress, alert and awake Nutritional Appearance: well nourished Orientation/consciousness: patient oriented x3 HENMT Head: Yes normal to inspection and Yes atraumatic Ears: hearing grossly normal bilaterally and external ears normal General nose exam: Normal external nose present, no nasal discharge noted and no epistaxis Face and sinus: No abrasion and No laceration Mouth: Normal oral and palatal mucosa present, no drooling, lip abnormal (lower lip edema) and no muffled voice Eyes General: appearance normal, both eyes and all related structures Periorbital: periorbital findings normal Eyelids: Yes eyelids normal Conjunctivae: conjunctivae normal Pupils: Equal, round and reactive pupils present EOM: EOMs intact bilaterally Neck Neck: Yes normal visual inspection, Yes full ROM and Yes no lymphadenopathy Resp Effort & Inspection: normal respiratory effort and able to speak in complete sentences Skin Other: urticaria to the posterior trunk Neuro General: patient oriented x3, moves all extremities and CN's II-XI intact bilaterally Cranial nerves: Yes Equal, round and reactive pupils present Cognition (Neuro): normal cognition Extrem General: Yes normal to inspection, Yes full ROM and Yes capillary refill normal Psych Appearance: grossly normal Mental Status: mental status grossly normal Affect: normal affect Attitude: cooperative Thought process: Normal thought process present Thought content: Normal thought content present Insight: Good insight present (Psych) Medications Administered Discontinued Medications Generic Name Dose Route Start Last Admin Trade Name Freq PRN Reason Stop Dose Admin Diphenhydramine HCl 25 mg 08/10/24 09:28 08/10/24 09:37 Diphenhydramine Hcl 50 Mg/Ml Vial IVPUSH 08/10/24 09:29 25 mg ONCE ONE Administration Epinephrine 0.3 mg 08/10/24 09:27 08/10/24 09:36 Epinephrine 1 Mg/Ml Vial SUBCUT 08/10/24 09:28 0.3 mg STAT STA Administration Epinephrine 0.3 mg 08/10/24 10:36 08/10/24 11:03 Epinephrine 1 Mg/Ml Vial SUBCUT 08/10/24 10:37 0.3 mg STAT STA Administration Famotidine 20 mg 08/10/24 09:28 08/10/24 09:37 Famotidine/Pf 20 Mg/2 Ml Vial IVPUSH 08/10/24 09:29 20 mg ONCE ONE Administration Methylprednisolone Sodium Succinate 60 mg 08/10/24 09:28 08/10/24 09:37 Methylprednisolone Sod Succ 125 Mg Vial IVPUSH 08/10/24 09:29 60 mg ONCE ONE Administration Medical Decision Making Medical Decision Making [facility] Narrative: Patient is a 53 year old assigned female at with a history of DM, asthma, and recent episode of idiopathic urticaria presenting to the emergency department today with lower lip swelling, itchy throat, and hives. Patient's physical exam was as noted in the physical exam portion of this note. Patient's blood work was unremarkable. I explained my physical exam findings as well as all test results to the patient. I answered all questions asked by the patient. Patient received Subcutaneous epi x2 as well as IV benadryl, famotidine, and solu-medrol which, upon re-evaluation, she stated it helped her symptoms significantly. Patient was monitored for at least 3.5 hours. I stressed the importance of the patient taking her medication as directed (either prescribed or as the over the counter packaging recommends). I stressed the importance of the patient following up with her primary care provider and an crankshaft grinder to determine what is causing this. I stressed the importance of the patient returning to the emergency department immediately if her symptoms were to worsen or if she were to develop any dizziness, shortness of breath, difficulty breathing, chest pain, blurry vision, loss of vision, nausea, vomiting, abdominal pain, fever, chills, back pain, or any other complaints. Patient verbalized agreement and understanding with this treatment plan and discharge. Differential Diagnosis Differential Diagnoses: The differential diagnosis associated with the presentation includes Angioedema Allergic reaction Idiopathic urticaria Admission/Observation Consideration of admission/observation: Escalation of care including admission/observation considered Patient would have been admitted to the hospital had her work up had any findings where hospital admission was appropriate and her clinical presentation warranted hospital admission. Lab Data [facility] Lab Attestation statement: I reviewed the patient's lab results. My interpretation of these results are in the [facility] Rationale portion of this note. 08/10/24 09:18 08/10/24 09:18 Labs: Lab Results 08/10/24 Range/Units 09:18 WBC 9.2 (4.8-10.8) X10*3/uL RBC 4.78 (4.20-5.50) X10*6/uL Hgb 12.2 (12.0-16.0) g/dl Hct 37.6 (37.0-47.0) % MCV 78.7 L (80.0-98.0) fL MCH 25.5 L (27.0-33.0) pg MCHC 32.4 (31.0-35.0) g/dl RDW 15.5 (11.0-16.0) % Plt Count 487 H (160-400) X10*3/uL MPV 9.1 L (9.4-12.3) fL Immature Gran % (Auto) 0.4 (0.0-0.4) % Neut % (Auto) 68.9 (45-73) % Lymph % (Auto) 19.6 L (20-40) % [facility] % (Auto) 7.7 (2-11) % Eos % (Auto) 3.0 (0-4) % Baso % (Auto) 0.4 (0-2) % Lymph # (Auto) 1.8 (1.2-4.9) X10*3/uL [facility] # (Auto) 0.7 (0.1-1.2) X10*3/uL Eos # (Auto) 0.3 (0.0-0.4) X10*3/uL Baso # (Auto) 0.0 (0.0-0.2) X10*3/uL Abs Immat Gran (auto) 0.04 H (0.00-0.03) X10*3/uL Absolute Neuts (auto) 6.4 (2.0-8.3) x10*3/uL Absolute Nucleated RBC 0.000 (0.0-0.012) X10*3/uL Nucleated RBC % (auto) 0.0 (0.0-0.2) /100WBC Sodium 140 (135-145) mmol/L Potassium 4.1 (3.3-5.1) mmol/L Chloride 107 (96-108) mmol/L Carbon Dioxide 24 (22-29) mmol/L Anion Gap 13 (12-20) BUN 14 (9-16) mg/dL Creatinine 0.71 (0.5-1.4) mg/dL Estim Creat Clear Calc 114.3 Estimated GFR > 60 Random Glucose 91 (60-115) mg/dL Calcium 9.2 (8.4-10.2) mg/dL Discharge Plan Discharge Clinical Impression: Allergic reaction, Angioedema Patient Disposition: Home, Self-Care Instructions: Angioedema (ED), General Allergic Reaction (ED) Additional Instructions: You should call to follow up with an crankshaft grinder. Clean ALL of your linen in HOT water. Follow up with your primary care provider. Return to the emergency department immediately if your symptoms worsen or if you develop any numbness, tingling, dizziness, shortness of breath, difficulty breathing, chest pain, blurry vision, loss of vision, nausea, vomiting, abdominal pain, fever, chills, back pain, or any other complaints. Please see the information below about our Patient Portal. If you are not yet enrolled in the [facility] Patient Portal, you will receive an enrollment email invitation following your visit to any [facility] setting. You may also self-enroll in the Patient Portal by visiting our website: [email or web address] The following information is required to access the Patient Portal: - Your [facility] Medical Record Number - Your personal home email address (must match what is in your electronic medical record, Registration staff can assist with this) - Name - Date of Capabilities of the Patient Portal: - Message some providers - View upcoming appointments - Access your health summary, medical history, and visit history - View current conditions and allergies - View procedure and lab results - View your medications, including guidelines, side effects, and precautions - Complete pre-appointment questionnaires requested by your provider - Ready summary reports of your office visits and procedures To access the Patient Portal Mobile [employer], follow these directions: - Search [employer] in the [employer] Store or [employer] Store - Download the [employer] - Search for [facility] - Enter your login/password Prescriptions: New prednisone 20 mg tablet See Rx Instructions .ROUTE .COMPLEX 9 Days Qty: 18 0RF Rx Instructions: 20 mg orally, Take 3 tablets for 3 days THEN; Take 2 tablets for 3 days THEN; Take 1 tablet for 3 days epinephrine [EpiPen] 0.3 mg/0.3 mL auto-injector 0.3 mg IM Q10M PRN (Reason: anaphylaxis) Qty: 2 0RF Rx Instructions: for 2 doses loratadine 10 mg tablet 10 mg PO DAILY Qty: 30 0RF No Action levothyroxine 100 mcg tablet 1 tab PO DAILY@0600 gxppdkxrfr-hunxzgaiyrjqi-ecqg [Fioricet] 50-300-40 mg capsule 1 cap PO Q6H PRN (Reason: Headache) Qty: 20 0RF naproxen 500 mg tablet 500 mg PO Q12H PRN (Reason: pain (scale score 1-3)) Qty: 20 0RF albuterol sulfate 90 mcg/actuation HFA aerosol inhaler 2 puff inhalation Q4H PRN (Reason: shortness of breath or wheezing) fluticasone propion-salmeterol [Advair Diskus] 500-50 mcg/dose Blister With Device 1 inh INHALATION BID metformin 500 mg Tablet Extended Release 24 Hr 500 mg PO BID prednisone 20 mg tablet 40 mg PO DAILY 5 Days Qty: 10 0RF Referrals: [facility] Primary Care, [facility] [Provider Group] (Call to establish and follow up with a primary care provider. ) Aron Carey MD [Physician] - Mazin Judd DO [Physician] - Carlyn Gutiérrez PA [Primary Care Provider] - Stand Alone Forms: Work/School Release Interventions: ED Discharge Assessment Last Done: 08/10/24 14:53 Discharge Date/Time: 08/10/24 14:53 Print Language: Micronesian
[2024-08-10 09:23] LABS: MANUAL DIFF FLAG NO
[2024-08-10 09:26] LABS: Basophils Percent Auto 0.4 % (0-2); Eosinophils Absolute Auto 0.3 X10*3/uL (0.0-0.4); Hematocrit 37.6 % (37.0-47.0); Hemoglobin 12.2 g/dl (12.0-16.0); Imm Gran Abs Auto 0.04 X10*3/uL (0.00-0.03); Imm Gran Pct Auto 0.4 % (0.0-0.4); Lymphocytes Absolute Auto 1.8 X10*3/uL (1.2-4.9); Lymphocytes Percent Auto 19.6 % (20-40); Mean Corpuscular HGB Conc 32.4 g/dl (31.0-35.0); Mean Corpuscular Hemoglobin 25.5 pg (27.0-33.0); Mean Corpuscular Volume 78.7 fL (80.0-98.0); Mean Platelet Volume 9.1 fL (9.4-12.3); Monocytes Absolute Auto 0.7 X10*3/uL (0.1-1.2); Monocytes Percent Auto 7.7 % (2-11); Neutrophils Absolute Auto 6.4 x10*3/uL (2.0-8.3); Neutrophils Percent Auto 68.9 % (45-73); Platelet Count 487 X10*3/uL (160-400); Red Blood Count 4.78 X10*6/uL (4.20-5.50); Red Cell Distribution Width 15.5 % (11.0-16.0); White Blood Count 9.2 X10*3/uL (4.8-10.8)
[2024-08-10 09:36] VITALS: BP 142/75; PULSE 73
[2024-08-10] MEDS: EPINEPHrine 1 MG/ML VIAL 0.3 MG SUBCUT ×2 (09:36→11:03)
[2024-08-10] MEDS: Famotidine/PF 20 MG/2 ML VIAL IVPUSH (09:37)
[2024-08-10] MEDS: diphenhydrAMINE HCL 50 MG/ML VIAL 25 MG IVPUSH (09:37)
[2024-08-10 09:38] LABS: Anion Gap 13 (12-20); Blood Urea Nitrogen 14 mg/dL (9-16); Calcium 9.2 mg/dL (8.4-10.2); Carbon Dioxide 24 mmol/L (22-29); Chloride 107 mmol/L (96-108); Creatinine Clr Calc Pharmacy 114.3; Estimated Glomerular Filt Rate > 60; Glucose Random 91 mg/dL (60-115); Potassium 4.1 mmol/L (3.3-5.1); Sodium 140 mmol/L (135-145)
[2024-08-10 11:03] VITALS: BP 118/53; PULSE 77
[2024-08-10 12:42] VITALS: BP 140/77; PULSE 96; RESP 18; TEMP 36.5; O2SAT 96
[2024-08-10 14:53] VITALS: BP 140/77; PULSE 96; RESP 18; TEMP 36.5; O2SAT 96
== END 2024-08-10 14:53 | disposition home or self-care (01) ==
PROVIDERS: Emergency Provider Emergency Medicine; PCP Physician Assistant Medical
DX: L50.0 Allergic urticaria (principal); Z79.899 Other long term (current) drug therapy
CPT/HCPCS: 36415; 80048; 85025; 96372; 96374; 96375; 99283; 99284; J0171; J1200; J1308; J2919

== ENCOUNTER 2024-12-23 20:15 | Emergency (ER) | payer OTHER, SELFPAY ==
--- NOTE | 2024-12-23 20:20 | ED.GENADULT ---
HPI - General Adult General Chief complaint: Allergic Reaction Stated complaint: allergic reaction; difficulty breathing Time Seen by Provider: 12/23/24 21:05 Source: patient Mode of arrival: ambulatory Limitations: no limitations History of Present Illness ED Provider: Dr. Madonna Moralez HPI narrative: 54-year-old female with history of diabetes, hypothyroidism, asthma, presenting with hives that have been intermittent over the last 2 weeks. States that she has been taking Benadryl at least once a day for the last 2 weeks due to hives. She has been seen at the urgent care and was given a course of prednisone which does not seem to be helping either. Admits that she notices the rash more when she is lying down in bed but has had hives while up moving around in the middle of the day as well. No new products in the home. No new medications or exposures. She has had issues with allergic reactions in the past and has been diagnosed with angioedema. She even had to be intubated in her early 20s because of throat swelling. She has an EpiPen but did not use it today. She denies associated tongue swelling, difficulty breathing, nausea, vomiting, diarrhea or severe abdominal pain. No syncope or near-syncope. Of note, she has had recent URI symptoms over the last 48 hours including sinus congestion, dry cough and subjective fevers. No known sick contacts or travel. No insect bites or tick exposures. Related Data Home Medications ?Medication ?Instructions ?Recorded ?Confirmed levothyroxine 100 mcg tablet 1 tab PO DAILY@0600 08/12/20 04/12/24 albuterol sulfate 90 mcg/actuation 2 puff inhalation Q4H PRN 04/12/24 04/12/24 aerosol inhaler shortness of breath or wheezing fluticasone 500 mcg-salmeterol 50 1 inh inhalation BID 04/12/24 04/12/24 mcg/dose blistr powdr for inhalation (Advair Diskus) metformin 500 mg tablet,extended 500 mg PO BID 04/12/24 04/12/24 release 24 hr Previous Rx's ?Medication ?Instructions ?Recorded [id number]-[id number] 1 cap PO Q6H PRN Headache #20 caps 12/02/20 50 mg-300 mg-40 mg capsule (Fioricet) naproxen 500 mg tablet 500 mg PO Q12H PRN pain (scale 02/27/24 score 1-3) #20 tabs prednisone 20 mg tablet 40 mg (2 x 20 mg) PO DAILY 5 days 04/15/24 #10 tabs epinephrine 0.3 mg/0.3 mL 0.3 mg (0.3 mL) IM Q10M PRN 08/10/24 injection, auto-injector (EpiPen) anaphylaxis #2 ea loratadine 10 mg tablet 10 mg PO DAILY #30 tabs 08/10/24 prednisone 20 mg tablet See Rx Instructions .Route 08/10/24 .COMPLEX 9 days #18 tabs cetirizine 10 mg tablet 10 mg PO .q8 PRN allergy symptoms 12/23/24 #60 tabs famotidine 20 mg tablet (Acid 20 mg PO Q6H #30 tabs 12/23/24 [employer] (famotidine)) prednisone 50 mg tablet 50 mg PO DAILY 5 days #5 tabs 12/23/24 Allergies Allergy/AdvReac Type Severity Reaction Status Date / Time peanut (PEANUT) Allergy Severe ANAPHYAXIS Verified 12/23/24 20:25 Penicillins (PENICILLINS) Allergy Intermediate HIVES Verified 12/23/24 20:25 latex (LATEX) Allergy Unknown HIVES, Verified 12/23/24 20:25 SWELLING metronidazole (From FLAGYL) Allergy Unknown UNK Verified 12/23/24 20:25 sumatriptan AdvReac Fainting Verified 12/23/24 20:25 Review of Systems Review of Systems: As per HPI, full review of systems performed and negative but for the above mentioned pertinent positives and negatives. [facility] Past Medical History Medical History Morbid obesity with BMI of 45.0-49.9, adult Type 2 diabetes mellitus without complications Anxiety Hypothyroidism Asthma Social History Social History Household Members: Family Household Members Other:: and 3 granddaughters Housing: Apartment Do you presently have visiting nurse or other home services: No Alcohol intake: never Patient Tobacco Use Status: Never used Tobacco Second Hand Smoke Exposure: No Advance Directives: No Advance Directives Information Provided: No service: No Physical Exam ED Exam Exam: GENERAL: Ill-Appearing, appears uncomfortable. SKIN: Normal skin color for ethnicity, warm, dry, urticarial rash noted on the left breast on the lateral aspect, no vesicular lesions, no petechiae. HEENT: Normocephalic, atraumatic, no stridor, dry mucous membranes, dentition intact, EOMI, PERRLA, posterior oropharynx is nonerythematous, nonedematous, uvula midline. NECK: Soft, supple, full ROM, midline structures nontender, no step-offs, no deformities, no lymphadenopathy. CHEST: Heart regular tachycardia, no murmurs, symmetric chest rise and fall. PULMONARY: Clear to auscultation bilaterally, diminished at the bases, no labored breathing, occasional bronchospastic cough, no wheezes/rhales/rhonchi. ABDOMINAL: Soft, nondistended, nontender, positive bowel sounds in all quadrants. : Deferred. MUSCULOSKELETAL: Normal tone, full range of motion, no deformities, no peripheral edema. NEURO: Alert and oriented x3, CN II through XII intact, equal strength and sensation bilateral upper and lower extremities, no focal neurologic deficits. PSYCHIATRIC: Flat affect, fluid speech, good eye contact and appropriate demeanor. Vital Signs: Vital Signs - 24 hr 12/23/24 20:21 12/23/24 22:10 Temperature 98.2 F Pulse Rate 115 H 84 Respiratory Rate 20 18 Blood Pressure 212/88 H 125/83 Pulse Oximetry 95 98 Oxygen Delivery Method Room Air Room Air BMI result Body Mass Index 45.0 Course Course Course Narrative: This is an RME done by JOANN [place]: Additional HPI, ROS, PE not included below will be deferred to primary provider. 54 year old female presents w/ suspected allergic reaction to unclear source x 3 days. Took 20 mg prednisone and bendaryl this AM. Known allergies to peanuts, PNC, latex, flagyl and sumatriptan. Reports rash, shortness of breath and feeling unwell. Has not used an epipen PE - urticaria, patient constantly clearing her throat. 95% on RA Plan- IV meds ordered. Patient should be put into a room. Medications Administered Discontinued Medications Generic Name Dose Route Start Last Admin Trade Name Freq PRN Reason Stop Dose Admin Dexamethasone Sodium Phosphate 10 mg 12/23/24 20:19 12/23/24 20:41 Dexamethasone Sod Phosphate 10 Mg/Ml Vial IVPUSH 12/23/24 20:20 10 mg ONCE ONE Administration Diphenhydramine HCl 50 mg 12/23/24 20:19 12/23/24 20:41 Diphenhydramine Hcl 50 Mg/Ml Vial IVPUSH 12/23/24 20:20 50 mg ONCE ONE Administration Famotidine 20 mg 12/23/24 20:19 12/23/24 20:41 Famotidine/Pf 20 Mg/2 Ml Vial IVPUSH 12/23/24 20:20 20 mg ONCE ONE Administration Loratadine 10 mg 12/23/24 23:04 12/23/24 23:12 Loratadine 10 Mg Tablet PO 12/23/24 23:05 10 mg ONCE ONE Administration Medical Decision Making Medical Decision Making MDM Narrative: Patient presented today for signs and symptoms of possible allergic reaction. Differential diagnosis did include angioedema, anaphylaxis, drug reaction, infection, among others. Physical examination does not show any signs of multiple system involvement such as anaphylaxis, though this was considered. Patient is not having any wheezing, nausea or vomiting, abdominal pain, or concerning swelling of the tongue or oropharynx. Airway is unobstructed and blood pressures are within normal limits. Anaphylaxis precautions have been given to the patient in a note to return immediately for signs and symptoms of this. Patient has an EpiPen at home already from previous episodes of allergic reaction and questionable anaphylaxis. 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 She was intubated in her early 20s for throat swelling and an allergic reaction was never diagnosed. She has not followed up with any specialist about this. Patient has been urged to follow up with [facility] farm lab[facility] as outpatient. All questions have been answered and patient is stable for discharge. They are welcome back at any time for re-evaluation as we are always happy to do so. Differential Diagnosis Differential Diagnoses: The differential diagnosis associated with the presentation includes (as above) Admission/Observation Consideration of admission/observation: Escalation of care including admission/observation considered Lab Data MDM Lab Attestation statement: I reviewed the patient's lab results. 12/23/24 20:38 12/23/24 20:38 Labs: Lab Results 12/23/24 Range/Units 20:38 WBC 10.7 (4.8-10.8) X10*3/uL RBC 5.48 (4.20-5.50) X10*6/uL Hgb 13.9 (12.0-16.0) g/dl Hct 41.3 (37.0-47.0) % MCV 75.4 L (80.0-98.0) fL MCH 25.4 L (27.0-33.0) pg MCHC 33.7 (31.0-35.0) g/dl RDW 16.3 H (11.0-16.0) % Plt Count 442 H (160-400) X10*3/uL MPV 9.4 (9.4-12.3) fL Immature Gran % (Auto) 0.4 (0.0-0.4) % Neut % (Auto) 63.6 (45-73) % Lymph % (Auto) 24.1 (20-40) % [place] % (Auto) 8.2 (2-11) % Eos % (Auto) 3.2 (0-4) % Baso % (Auto) 0.5 (0-2) % Lymph # (Auto) 2.6 (1.2-4.9) X10*3/uL [place] # (Auto) 0.9 (0.1-1.2) X10*3/uL Eos # (Auto) 0.3 (0.0-0.4) X10*3/uL Baso # (Auto) 0.1 (0.0-0.2) X10*3/uL Abs Immat Gran (auto) 0.04 H (0.00-0.03) X10*3/uL Absolute Neuts (auto) 6.8 (2.0-8.3) x10*3/uL Absolute Nucleated RBC 0.000 (0.0-0.012) X10*3/uL Nucleated RBC % (auto) 0.0 (0.0-0.2) /100WBC Sodium 141 (135-145) mmol/L Potassium 3.5 (3.3-5.1) mmol/L Chloride 107 (96-108) mmol/L Carbon Dioxide 23 (22-29) mmol/L Anion Gap 15 (12-20) BUN 16 (9-16) mg/dL Creatinine 0.86 (0.5-1.4) mg/dL Estim Creat Clear Calc 89.3 Estimated GFR > 60 Random Glucose 102 (60-115) mg/dL Calcium 9.8 D (8.4-10.2) mg/dL Total Bilirubin 0.2 (0.0-1.0) mg/dL AST 30 (5-31) U/L ALT 39 H (0-31) U/L Alkaline Phosphatase 87 (39-117) U/L Total Protein 7.5 (6.5-8.0) g/dL Albumin 4.6 (3.5-5.0) g/dL Prescription Management I considered prescription management with: Other (antihistamines, steriods) Chronic Conditions Patient?s care impacted by: Diabetes and Other (Hypothyroidism, asthma) Discharge Plan Discharge Clinical Impression: Recurrent urticaria, Viral upper respiratory infection Patient Disposition: Home, Self-Care Instructions: Urticaria (ED), Upper Respiratory Infection (ED) Additional Instructions: Continue to take cetirizine (Zyrtec) and famotidine (Pepcid) for your hive rash. You may take this up to 3 times a day. You can take both of the medications at the same time. You may also use Benadryl (diphenhydramine) 50 milligrams up to 3 times a day as well. Try to avoid this medication if UR awake as it can cause drowsiness. Use prednisone (steroid) as needed if the antihistamines do not work. Return to the emergency department immediately with any new or worsening symptoms including: Swelling of the face or tongue, difficulty breathing or swallowing, severe diarrhea or vomiting associated with the rash, any new symptom that concerns you. Call 911 with any medical emergency. If you have to use your EpiPen, call 911 right away or come to the emergency department immediately. Prescriptions: New cetirizine 10 mg tablet 10 mg PO .q8 PRN (Reason: allergy symptoms) Qty: 60 0RF famotidine [Acid [employer] (famotidine)] 20 mg tablet 20 mg PO Q6H Qty: 30 0RF prednisone 50 mg tablet 50 mg PO DAILY 5 Days Qty: 5 0RF No Action levothyroxine 100 mcg tablet 1 tab PO DAILY@0600 [id number] [Fioricet] 50-300-40 mg capsule 1 cap PO Q6H PRN (Reason: Headache) Qty: 20 0RF naproxen 500 mg tablet 500 mg PO Q12H PRN (Reason: pain (scale score 1-3)) Qty: 20 0RF albuterol sulfate 90 mcg/actuation HFA aerosol inhaler 2 puff inhalation Q4H PRN (Reason: shortness of breath or wheezing) fluticasone propion-salmeterol [Advair Diskus] 500-50 mcg/dose Blister With Device 1 inh INHALATION BID metformin 500 mg Tablet Extended Release 24 Hr 500 mg PO BID prednisone 20 mg tablet 40 mg PO DAILY 5 Days Qty: 10 0RF prednisone 20 mg tablet See Rx Instructions .ROUTE .COMPLEX 9 Days Qty: 18 0RF Rx Instructions: 20 mg orally, Take 3 tablets for 3 days THEN; Take 2 tablets for 3 days THEN; Take 1 tablet for 3 days epinephrine [EpiPen] 0.3 mg/0.3 mL auto-injector 0.3 mg IM Q10M PRN (Reason: anaphylaxis) Qty: 2 0RF Rx Instructions: for 2 doses loratadine 10 mg tablet 10 mg PO DAILY Qty: 30 0RF Print Language: Cam[place]onian
[2024-12-23 20:21] VITALS: BP 212/88; PULSE 115; RESP 20; TEMP 36.8; O2SAT 95; BMI 45.0
[2024-12-23 20:42] LABS: MANUAL DIFF FLAG NO
--- OUTSIDE RECORDS SUMMARY | 2024-12-23 20:42 | XMS_ITS | Data Portability ---
Author Organization [place] - [facility], [facility] Address [address] [place] [address] Care Team Providers Care Compliance Field Technician Name Role Phone ARUNA BERRY Primary Care Provider Assessment No assessment recorded. Plan of Treatment Reminders Order Date Submit Date Provider Last Modified By Organization Details Last Modified Time Details Appointments NEW PATIENT 20 2024 10:10A M Jose Alberto Tang MD Not available Not available Not available Lab None recorded. Referral None recorded. Procedures None recorded. Surgeries None recorded. Imaging XR, knee, 4 or more view - rm 2. 4V bilat knee pain 2024 025 [email or web address] [facility] Office, [address], [facility] [address], [place], [address], 12/17/2024 16:04:25 Medication Orders Celebrex 200 mg capsule 2024 025 [email or web address] [id number], [address] [place] [address], [phone], 12/17/2024 16:04:25 Patient TargetsNo targets recorded. Patient InstructionsNo instructions recorded. Reason for Referral None Reported. Results Created Date Observation Date Name Description Value Unit Range Abnormal Flag Note LastModifiedBy Organization Detail LastModifiedTime 12/18/1912/17/2024 XR, knee, 4 or more view [email or web address] ?Encry pted=s hAaTro YD8dLq bEUv6g %2BXZw aYqtaq 0bqfl% 2Fg9IQ a4ajBk vP9nXo QUaueC m3YtLR FvZlgJ JJ8mAn HZtai3 6b5528 AC0Klb X2MUqW uKiQtr MwF INTERFACE [facility] [address] [facility] [address], [place], [address], 12/17/2024 10:34:20 12/18/19 25 12/17/2024 XR, knee, 4 or more view [email or web address] ?Encry pted=s hAaTro YD8dLq bEUv6g %2BXZw aYqtaq 0bqfl% 2Fg9IQ a4ajBk vP9nXo QUaueC m3YtLR FvZlgJ JJ8mAn HZtai3 6t8987 AC0Klb X2MUqW uKiQtr MwF INTERFACE [facility] [address] [address], [place], [address], 12/17/2024 10:34:22 Result Notes Documentation Provider Name and Address Organization Details Recorded Time Xr, Knee, 4 Or More View : [email or web address] Encrypted=bsNtMxuQZ9cBoyF Uv6g%9HKNlhLbuje2shcl%2Fg 3BCc2quRbxB6bEcOLqurCg5Xt XWHrIyiATB2hEyTUpdy25g649 8WR5JgxD2NZaSeMzVwaYzD Not Available [facility] 12/17/2024 10:34: 21 Xr, Knee, 4 Or More View : [email or web address] Encrypted=giLyVgcPD9pTzeV Uv6g%3UWXofGxaul7ippz%2Fg 2LGg9dzAhzJ6oRxCNiyxTw1Oi LQIyYabIOY8mYqHXdav13p711 5GD4NohV0HDtZfCpIxgVhV Not Available [facility] 12/17/2024 10:34: 22 Problems Name Problem SNOMED Code Status Onset Date Resolution Date Notes Provider Name and Address Organization Details Recorded Time Pain of right elbow joint 994071330170960 09 Active 2019 Problem Code: M25.521; Problem Code Type: ICD-10; Status: 'A'; Not Available [facility] 4 10:58:11 Problem Notes None recorded. Medical Equipment None Reported. Allergies Allergen ID Allergen Name Allergen Category Reaction Reaction Severity Criticality Documentation Date Start Date Code Code System Note Provider Name and Address Organization Details Recorded Time 183996 Flagyl medicatio n Not available Not available Not available 12/17/202475132 6 RxNorm AIDEE land [place] - [facility] 5 10:22:57 76022 Product containin g penicilli n (product) medicatio n Not available Not available Not available 05/23/20232009 33154 8001 SNOMED Aller gyRea ction : 'Skin React ion'; Not Available [facility] 4 11:52:56 82249 peanut allergeni c extract food,medi cation Not available Not available Not available 05/23/20232012 78812 8 RxNorm Not Available [facility] 4 11:52:56 50782 latex environme nt,medica tion Not available Not available Not available 05/23/20232012 75984 91 RxNorm Not Available [facility] 4 11:52:56 Medications Name Sig Start Date Stop Date Status Note LastModified by Organization Details LastModified Time fexofenadin e 60 mg tablet TAKE 1 TABLET BY MOUTH DAILY FOR 14 DAYS active Not Available Not Available No t Available prednisone 20 mg tablet TAKE 2 TABLETS BY MOUTH DAILY FOR 5 DAYS active Not Available Not Available No t Available Celebrex 200 mg capsule Take 1 capsule every day by oral route. 2024 active Not Available Not Available Not Avai lable levothyroxi ne 100 mcg tablet TAKE 1 TABLET BY MOUTH DAILY active Not Available Not Available No t Available famotidine 20 mg tablet TAKE 1 TABLET BY MOUTH TWICE DAILY FOR 7 DAYS active Not Available Not Available No t Available hydrocortis one 1 % topical cream APPLY TOPICALLY TWICE DAILY FOR 14 DAYS active Not Available Not Available No t Available doxycycline monohydrate 100 mg capsule TAKE 1 CAPSULE BY MOUTH TWICE DAILY FOR 5 DAYS 12/17 completed Not Available Not Available Not Available cephalexin 500 mg capsule TAKE 1 CAPSULE BY MOUTH TWICE DAILY FOR 5 DAYS 12/17 completed Not Available Not Available Not Available pseudoephed rine-guaife nesin ER 80-700 mg tablet,exte nded release DO NOT DRIVE WHILE TAKING PAIN MEDS 06/09 completed Statu s: 'Disc ontin ued'; Not Available Not Available Not Available prednisone 50 mg tablet TAKE 1 TABLET BY MOUTH DAILY FOR 4 DAYS active Not Available Not Available No t Available epinephrine 0.3 mg/0.3 mL injection, auto-inject or INJECT 0.3 MG IN THE MUSCLE EVERY 10 MINUTES NEEDED FOR ANAPHYLAX IS FOR 2 DOSES active Not Available Not Available No t Available fluticasone propionate 50 mcg/actuati on nasal spray,suspe nsion SHAKE LIQUID AND USE 1 SPRAY IN EACH NOSTRIL DAILY SHAKE WELL BEFORE USING active Not Available Not Available No t Available metformin ER 500 mg tablet,exte nded release 24 hr TAKE 1 TABLET BY MOUTH TWICE DAILY active Not Available Not Available No t Available loratadine 10 mg tablet TAKE 1 TABLET BY MOUTH DAILY active Not Available Not Available No t Available naproxen 500 mg tablet TAKE 1 TABLET BY MOUTH EVERY 12 HOURS NEEDED FOR PAIN active Not Available Not Available No t Available Ventolin HFA 90 mcg/actuati on aerosol inhaler INHALE 2 PUFFS BY MOUTH EVERY 4 HOURS NEEDED active Not Available Not Available No t Available trospium 20 mg tablet TAKE 1 TABLET BY MOUTH TWICE DAILY active Not Available Not Available No t Available Ozempic 1 mg/dose (4 mg/3 mL) subcutaneou s pen injector INJECT 1MG SUBCUTANE OUS ONCE WEEKLY active Not Available Not Available No t Available BinaxNOW COVID-19 Ag Self Test kit TEST DIRECTED TODAY active Not Available Not Available No t Available Ozempic 2 mg/dose (8 mg/3 mL) subcutaneou s pen injector INJECT 2MG SUBCUTANE OUS ONCE WEEKLY active Not Available Not Available No t Available Mounjaro 7.5 mg/0.5 mL subcutaneou s pen injector ADMINISTE R 7.5 MG UNDER THE SKIN EVERY WEEK. ROTATE INJECTION SITES active Not Available Not Available No t Available Ozempic 0.25 mg or 0.5 mg (2 mg/3 mL) subcutaneou s pen injector INJECT 0.5 MG SUBCUTANE OUS UNDER THE SKIN ONCE A WEEK DIRECTED FOR 4 WEEKS THEN INCREASE TO 1 MG active Not Available Not Available No t Available Ultra-Fine Pen Needle 31 gauge x 5/16 USE DIRECTED WITH HUMALOG active Not Available Not Available No t Available Vitals Date Recorded Body height Body mass index (BMI) Body weight Provider Name and Address Organization Details Last Updated DateTime 12/17/2024 157.48 cm 46.1 kg/m2 511047.28 g AIDEE PETERSON [place] - [facility] 12/17/2024 10:22:46 Social History None recorded. Functional Status None recorded. Mental Status None recorded. Family History Nothing Reported. Medical History No medical history recorded. Gynecological HistoryNo gynecological history recorded. Obstetrics History GPAL:G 0 P 0 0 0 0 Past Encounters Encounter ID Performer Location Encounter Start Date Encounter Closed Date Diagnosis/Indication Diagnosis SNOMED-CT Code Diagnosis ICD10 Code Diagnosis IMO Codes Diagnosis Note [id number] [facility] [address] [place] [address] 12/17/2024 10:13:03 12/17/2024 12:27:33 Pain of bilateral knee regions 1562965888 03891 M25.561 M25.562 [id number] Health Concerns Section Related Observation LastModified by Organization Detai ls LastModified Time None Recorded Concern Status LastModified by Organization Details LastModified Time None Recorded Advance Directives Directive None Recorded Payers Insurance Date Sequence Insurance Name Policy Number Policy Aguayo Covered Member ID Aguayo Member ID Guarantor Name 12/17/2024 1 [place] [facility] Saumya Atkinson [id number] Saumya Atkinson 12/17/2024 1 [facility] (MEDICAID HMO) [id number] Saumya Atkinson [id number] Saumya Atkinson Notes Date Note Type Note Provider Name and Address Organization Details Recorded Time 12/17/2024 text/html I am seeing the patient today under the supervision of Dr. Tang who was available but who did not see the patient.History: This pleasant woman 54 years old presents today for evaluation of right greater than left knee pain. She has had problems with her knees for a number of years. Had ACL reconstruction on the right side ultimately screw removal done a number of years ago. She has pain with standing and walking to the point where she has to use a walker at this point. Has had no cortisone injection recently however has had them in the past with minimal benefit. Takes anti-inflammatories txwv-gfr-fqrbstk but this does bother her stomach. Takes Tylenol.PMH/PSH/MEDS/AL L/FMH/SOC HX/ROS are reviewed in detail, updated and signed by me and located in the patient's chart.Of note: Is currently on the Mounjaro and has lost over 20 pounds in the last 3 weeks.General Exam: Vital signs are as noted belowMental status: Alert and lucid. Normal insight, affect and grooming.IRS AGENT: Gross motor coordination is intact. No spasticity or clonus noted.Extremities: [Calves are soft non tender, skin intact. ]Orthopedic Examination:Patient has a negative straight leg raise bilaterally.Right Hip: Mild trochanteric bursal tenderness. Full range of motion no referred pain to the kneeLeft Hip: No tenderness to palpation. Full range of motion referred pain in the kneeRight Knee: Tenderness medially. Range of motion 0-1 10. Varus alignment.Left Knee: Tenderness medially. Range of motion 0-1 10. Varus alignment.Peripheral, vascular, lymphatic examination, skin, neurological, coordination, reflexes, sensation are within normal limits.X-rays ordered, obtained and reivewed at [facility], 4 views bilateral knees show end-stage medial compartment arthritis with varus alignment and significant osteophytic spurring tricompartmentally mostly involved into the medial compartment.Assessment: Bilateral knee end-stage arthritisPLAN: The patient was thoroughly counseled today regarding knee condition. Its natural history and the options, both operative and nonoperative. The nature of knee replacement surgery, the potential risks, benefits, and complications, the magnitude of the surgery, the intensity of postoperative recovery as well as its elective nature was explained at length today. Issues regarding lifelong infection and activity precautions were reviewed. The longevity of the implants was discussed. The patient understands the potential need for revision surgery within the next 15 years. The patient understands the potential complexity of a revision situation as well.In regards to today's visit and in discussion of conservative treatment options. We have gone over Tylenol, use of anti-inflammatories, role of physical therapy, as well as intra-articular cortisone injections.I had a long discussion with her today. Would like her to follow-up with Dr. Tang in 2 to 3 weeks for weight check. Her BMI is currently 46 and needs to be under 45 to consider surgery given her failure of conservative treatment and her limitations in activities of daily living certainly feel total knee arthroplasty is warranted and should she have her BMI down roughly needs to lose 10 pounds what at that point would be a candidate for total knee arthroplasty given both going forward. She opts against any type of injection therapy today as it has not worked well for her in the past.[facility] speech recognition balance screwhead polisher software was used to create portions of this document. An attempt at proofreading has been made to minimize errors. Please call for corrections. Manuel Khan PA-C [address], [place], [address], [facility] - [facility] 12/17/2024 12:27:31 OBGyn Episode No OBEpisode recorded.
[2024-12-23 20:46] LABS: Hematocrit 41.3 % (37.0-47.0); Hemoglobin 13.9 g/dl (12.0-16.0); Imm Gran Abs Auto 0.04 X10*3/uL (0.00-0.03); Imm Gran Pct Auto 0.4 % (0.0-0.4); Lymphocytes Absolute Auto 2.6 X10*3/uL (1.2-4.9); Mean Corpuscular HGB Conc 33.7 g/dl (31.0-35.0); Mean Corpuscular Hemoglobin 25.4 pg (27.0-33.0); Mean Corpuscular Volume 75.4 fL (80.0-98.0); NRBC Abs Auto 0.000 X10*3/uL (0.0-0.012); NRBC Pct Auto 0.0 /100WBC (0.0-0.2); Platelet Count 442 X10*3/uL (160-400); Red Blood Count 5.48 X10*6/uL (4.20-5.50); White Blood Count 10.7 X10*3/uL (4.8-10.8)
[2024-12-23 21:02] LABS: Alanine Aminotransferase 39 U/L (0-31); Albumin Level 4.6 g/dL (3.5-5.0); Alkaline Phosphatase 87 U/L (39-117); Anion Gap 15 (12-20); Aspartate Amino Transferase 30 U/L (5-31); Blood Urea Nitrogen 16 mg/dL (9-16); Calcium 9.8 mg/dL (8.4-10.2); Carbon Dioxide 23 mmol/L (22-29); Chloride 107 mmol/L (96-108); Creatinine Clr Calc Pharmacy 89.3; Estimated Glomerular Filt Rate > 60; Potassium 3.5 mmol/L (3.3-5.1); Sodium 141 mmol/L (135-145); Total Protein 7.5 g/dL (6.5-8.0)
[2024-12-23 22:10] VITALS: BP 125/83; PULSE 84; RESP 18; O2SAT 98
[2024-12-23 23:34] LABS: COVID-19 Test Negative (Negative); IDNOW Serial# 55D5AD1C; IDNOW Serial# 58CA691E; Influenza B2 Negative (Negative)
[2024-12-23 23:55] VITALS: BP 114/66; PULSE 83; RESP 18; TEMP 37.1; O2SAT 94
[2024-12-23 23:56] VITALS: BP 114/66; PULSE 83; RESP 18; TEMP 37.1; O2SAT 94
== END 2024-12-23 23:56 | disposition home or self-care (01) ==
PROVIDERS: Emergency Provider Emergency Medicine
DX: L50.9 Urticaria, unspecified (principal); J06.9 Acute upper respiratory infection, unspecified; E66.01 Morbid (severe) obesity due to excess calories; Z68.41 Body mass index [BMI] 40.0-44.9, adult; E11.9 Type 2 diabetes mellitus without complications; Z79.899 Other long term (current) drug therapy
CPT/HCPCS: 36415; 80053; 85025; 87502; 87635; 96374; 96375; 99284; J1100; J1200; J1308

== ENCOUNTER 2025-01-05 16:01 | Emergency (ER) | payer OTHER, SELFPAY ==
--- NOTE | ~2025-01-05 | CT_ITS ---
CLINICAL HISTORY: +dimer, +syncope CT angiography chest with contrast. 3D Postprocessing. Comparison: None provided Findings: The heart size is normal. RV/LV ratio is normal. Unremarkable thoracic aorta and great vessels. No aneurysm. No main or segmental pulmonary emboli identified. The visualized thyroid and mediastinum are unremarkable. The lungs are clear. Prior cholecystectomy. Hepatic steatosis. No acute fractures. IMPRESSION: 1. No main or segmental pulmonary emboli identified. This document has been electronically signed by: Mike Jarrell MD on 01/05/2025 23:45:51
[2025-01-05 16:12] VITALS: BP 145/88; PULSE 88; RESP 18; TEMP 37; O2SAT 96; BMI 40.2
--- NOTE | 2025-01-05 16:14 | ED_ITS ---
HPI - General Adult General Chief complaint: Syncope Stated complaint: Passed out today/not sure how long for... Time Seen by Provider: 01/05/25 19:09 Source: patient and RN notes reviewed Mode of arrival: ambulatory Limitations: no limitations History of Present Illness ED Provider: Alisha Awan PA-C HPI narrative: This is a 54-year-old female, with a past medical history of asthma, hypothyroidism, diabetes, anxiety, who presents emergency department after a syncopal episode. Patient reports that she was singing with her grandchildren and felt very warm and then she remembers waking up with other individuals around her. This syncopal episode happened 2 hours prior to her arrival. She states that she was around individuals when this happened. She denies any head strike, she is not on anticoagulation. She denies any chest pain or shortness of breath prior to this episode. She states that over the last several months she has had bad ?hot flashes?, which he has been attributing to her premenopausal symptoms. She denies any recent travel, surgery, hospitalizations. She states that she is currently feeling well, asymptomatic, you would like to be discharged home. She has been in her usual state of health. No other complaints or concerns at this time. MD complaint: Syncopal episode Onset (ago): hour(s) Radiation: non-radiation Exacerbating factors: none Associated symptoms: denies other symptoms Treatments prior to arrival: none Related Data Home Medications ?Medication ?Instructions ?Recorded ?Confirmed levothyroxine 100 mcg tablet 1 tab PO DAILY@0600 08/1204/12/24 albuterol sulfate 90 mcg/actuation 2 puff inhalation Q 4H PRN 04/12/24 04/12/24 aerosol inhaler shortness of breath or wheez ing fluticasone 500 mcg-salmeterol 50 1 inh inhalation BID 04/12/24 04/12/24 mcg/dose blistr powdr for inhalation (Advair Diskus) metformin 500 mg tablet,extended 500 mg PO BID 5 04/12/24 release 24 hr Previous Rx's ?Medication ?Instructions ?Recorded ibhtgttijj-elohfobwvqkpf-cfwdgere 1 cap PO Q6H PRN Hea dache #20 caps 12/02/20 50 mg-300 mg-40 mg capsule (Fioricet) naproxen 500 mg tablet 500 mg PO Q12H PRN pain (sca le 02/27/24 score 1-3) #20 tabs prednisone 20 mg tablet 40 mg (2 x 20 mg) PO DAILY 5 days 04/15/24 #10 tabs epinephrine 0.3 mg/0.3 mL 0.3 mg (0.3 mL) IM Q10M PRN 08/10/24 injection, auto-injector (EpiPen) anaphylaxis #2 ea loratadine 10 mg tablet 10 mg PO DAILY #30 tabs 07/20 06/12 prednisone 20 mg tablet See Rx Instructions .Route 0 08/10/24 .COMPLEX 9 days #18 tabs cetirizine 10 mg tablet 10 mg PO .q8 PRN allergy sym ptoms 12/23/24 #60 tabs famotidine 20 mg tablet (Acid 20 mg PO Q6H #30 tabs Web Services Architect (famotidine)) prednisone 50 mg tablet 50 mg PO DAILY 5 days #5 tab s 12/23/24 Allergies Allergy/AdvReac Type Severity Reaction Status Date / Time peanut (PEANUT) Allergy Severe ANAPHYAXIS Verified 01/05/25 16:14 Penicillins (PENICILLINS) Allergy Intermediate HIVES Verified 01/05/25 16:14 latex (LATEX) Allergy Unknown HIVES, Verified 01/05/25 16:14 SWELLING metronidazole (From FLAGYL) Allergy Unknown UNK Verified 01/05/25 16:14 sumatriptan AdvReac Fainting Verified 01/05/25 16:14 Review of Systems 2 Review of Systems: Constitutional : No Fever, No Chills ENT/Mouth : No sore throat, No Rhinorrhea Eyes: No Eye Pain, No Swelling, No Redness Cardiovascular : No Chest Pain, No SOB Respiratory : No Cough, No Sputum Gastrointestinal : No Nausea, No Vomiting, No Diarrhea, No abdominal Pain Genitourinary : No Dysuria, No Hematuria Musculoskeletal : No joint pain, No Myalgias, No Joint Swelling Skin : No Skin Lesions Neuro : No Weakness, No Numbness, No Headache All other systems reviewed and are negative Yes all other systems are reviewed and are negative Constitutional: Constitutional: Reports as per [facility] Past Medical History Medical History Morbid obesity with BMI of 45.0-49.9, adult Type 2 diabetes mellitus without complications Anxiety Hypothyroidism Asthma Social History Social History Household Members: Family Household Members Other:: and 3 granddaughters Housing: Apartment Do you presently have visiting nurse or other home services: No Alcohol intake: never Patient Tobacco Use Status: Never used Tobacco Second Hand Smoke Exposure: No service: No Physical Exam ED Vital Signs: Vital Signs - 24 hr 01/05/25 16:12 01/05/25 18:04 01/05/25 22:51 Temperature 98.6 F 97.8 F Pulse Rate 88 70 80 Respiratory Rate 18 18 19 Blood Pressure 145/88 H 124/69 137/74 Pulse Oximetry 96 96 95 Oxygen Delivery Method Room Air Room Air Room Air 01/05/25 23:45 01/05/25 23:47 01/05/25 23:49 Temperature Pulse Rate 80 87 90 Respiratory Rate Blood Pressure 126/75 133/75 127/80 Pulse Oximetry Oxygen Delivery Method 01/06/25 00:11 01/06/25 01:36 Temperature 97.9 F 97.9 F Pulse Rate 89 89 Respiratory Rate 18 18 Blood Pressure 133/79 133/79 Pulse Oximetry 96 96 Oxygen Delivery Method Room Air Room Air BMI result Body Mass Index 40.2 Const General: cooperative, comfortable and no acute distress Orientation/consciousness: patient oriented x3 Limitations: no limitations HENMT Head: Yes normal to inspection, Yes normocephalic and Yes atraumatic Ears: hearing grossly normal bilaterally General nose exam: Normal external nose present Face and sinus: Yes normal facial exam Mouth: Normal oral and palatal mucosa present, oropharynx normal and moist mucous membranes Throat: Yes posterior oropharynx normal Eyes General: appearance normal, both eyes and all related structures Eyelids: Yes eyelids normal Conjunctivae: conjunctivae normal Sclerae: sclerae normal Pupils: Equal, round and reactive pupils present EOM: EOMs intact bilaterally Neck Neck: Yes normal visual inspection, Yes full ROM and Yes no lymphadenopathy Lymphatic: no lymphadenopathy noted Chest Chest palpation & inspection: normal inspection of the chest Resp Effort & Inspection: normal respiratory effort and able to speak in complete sentences Auscultation: clear to auscultation bilaterally, no crackles, no rales, no rhonchi and no wheezes Cardio Rate: regular rate Rhythm: regular rhythm Heart sounds: S1 normal heart sound present and S2 normal heart sound present GI Inspection: Yes normal to inspection Skin General skin exam: no rashes or lesions noted Trauma: no lacerations or abrasions Wounds: no wounds Neuro General: patient oriented x3 and moves all extremities Cranial nerves: Yes CN's II-XII intact bilaterally and Yes Equal, round and reactive pupils present Cognition (Neuro): normal cognition Motor exam (neuro): 5/5 motor strength present throughout and Pronator motor function not present Extrem General: Yes normal to inspection Right upper extremity: normal to inspection Left upper extremity: normal to inspection Right lower extremity: normal to inspection Left lower extremity: normal to inspection Course Course Course Narrative: This is a rapid medical exam performed by Chris Reilly NP: Additional HPI, ROS, PE not included below will be deferred to primary provider. Patient is a 54y/o F with pmhx asthma, T2DM, childhood seizures, not on antiepileptics presenting after syncopal episode. Daughter called someone who witnessed the episode in triage, they deny any tremors or seizure like activity. Patient reports feeling hot prior. States she has felt hot/cold all day. Plan: EKG, labs Medical Decision Making Medical Decision Making [facility] Narrative: This is a 54-year-old female, with a past medical history of asthma, hypothyroidism, diabetes, anxiety, who presents emergency department after a syncopal episode. On arrival, pt is well appearing, under no acute distress. She is neurologically intact with no focal deficits. Labs were obtained prior to my evaluation. She has no leukocytosis, stable H&H, chem with no significant electrolyte derangements. trop negative. EKG nonischemic. d-dimer was obtained which was 290, upper limit age adjusted is 89, given this, CTA was ordered. Pt feeling well, no CP or SOB. >>sign out given to my colleague pending CTA chest, orthos. CTA of the chest is negative for PE. Patient's feels well. Patient will be discharged home. Differential Diagnosis Differential Diagnoses: The differential diagnosis associated with the presentation includes syncope, arrhythmia, electrolyte derangement, dehydration. Admission/Observation Consideration of admission/observation: Escalation of care including admission/observation considered Lab Data [facility] Lab Attestation statement: I reviewed the patient's lab results. see mdm 01/05/25 18:52 01/05/25 17:32 Labs: Lab Results 01/05/25 01/05/25 01/05/25 Range/Units 17:32 18:52 19:21 WBC 9.3 (4.8-10.8) X10*3/uL RBC 5.63 H (4.20-5.50) X10*6/uL Hgb 14.2 (12.0-16.0) g/dl Hct 44.8 (37.0-47.0) % MCV 79.6 L (80.0-98.0) fL MCH 25.2 L (27.0-33.0) pg MCHC 31.7 (31.0-35.0) g/dl RDW 16.6 H (11.0-16.0) % Plt Count 408 H (160-400) X10*3/uL MPV 9.5 (9.4-12.3) fL Immature Gran % (Auto) 0.4 (0.0-0.4) % Neut % (Auto) 66.3 (45-73) % Lymph % (Auto) 17.8 L (20-40) % [place] % (Auto) 8.2 (2-11) % Eos % (Auto) 6.5 H (0-4) % Baso % (Auto) 0.8 (0-2) % Lymph # (Auto) 1.7 (1.2-4.9) X10*3/uL [place] # (Auto) 0.8 (0.1-1.2) X10*3/uL Eos # (Auto) 0.6 H (0.0-0.4) X10*3/uL Baso # (Auto) 0.1 (0.0-0.2) X10*3/uL Abs Immat Gran (auto) 0.04 H (0.00-0.03) X10*3/uL Absolute Neuts (auto) 6.1 (2.0-8.3) x10*3/uL Absolute Nucleated RBC 0.000 (0.0-0.012) X10*3/uL Nucleated RBC % (auto) 0.0 (0.0-0.2) /100WBC PT 11.7 (10.9-12.4) SEC INR 1.0 (0.9-1.1) D-Dimer High Sensitivty 290 Cancelled NG/ML Sodium 138 (135-145) mmol/L Potassium 4.0 (3.3-5.1) mmol/L Chloride 112 H (96-108) mmol/L Carbon Dioxide 17 L (22-29) mmol/L Anion Gap 13 (12-20) BUN 10 (9-16) mg/dL Creatinine 0.80 (0.5-1.4) mg/dL Estim Creat Clear Calc 103.6 Estimated GFR > 60 Random Glucose 86 (60-115) mg/dL Lactic Acid (0.5-2.0) mmol/L Calcium 9.4 (8.4-10.2) mg/dL Magnesium 2.3 (1.6-2.6) mg/dL Total Bilirubin 0.2 (0.0-1.0) mg/dL AST 30 (5-31) U/L ALT 43 H (0-31) U/L Alkaline Phosphatase 89 (39-117) U/L Total Creatine Kinase (26-140) U/L Troponin I High Sens < 2.7 (<3.5-17.0) ng/L Total Protein 7.1 (6.5-8.0) g/dL Albumin 4.1 (3.5-5.0) g/dL TSH Cancelled COVID-19 (SEB) Negative (Negative) COVID-19 Clin Com See Note Influenza Type A (TROY) Negative (Negative) Influenza Type B (TROY) Negative (Negative) Influenza A & B Note See Note 01/05/25 Range/Units 20:21 WBC (4.8-10.8) X10*3/uL RBC (4.20-5.50) X10*6/uL Hgb (12.0-16.0) g/dl Hct (37.0-47.0) % MCV (80.0-98.0) fL MCH (27.0-33.0) pg MCHC (31.0-35.0) g/dl RDW (11.0-16.0) % Plt Count (160-400) X10*3/uL MPV (9.4-12.3) fL Immature Gran % (Auto) (0.0-0.4) % Neut % (Auto) (45-73) % Lymph % (Auto) (20-40) % [place] % (Auto) (2-11) % Eos % (Auto) (0-4) % Baso % (Auto) (0-2) % Lymph # (Auto) (1.2-4.9) X10*3/uL [place] # (Auto) (0.1-1.2) X10*3/uL Eos # (Auto) (0.0-0.4) X10*3/uL Baso # (Auto) (0.0-0.2) X10*3/uL Abs Immat Gran (auto) (0.00-0.03) X10*3/uL Absolute Neuts (auto) (2.0-8.3) x10*3/uL Absolute Nucleated RBC (0.0-0.012) X10*3/uL Nucleated RBC % (auto) (0.0-0.2) /100WBC PT (10.9-12.4) SEC INR (0.9-1.1) D-Dimer High Sensitivty NG/ML Sodium (135-145) mmol/L Potassium (3.3-5.1) mmol/L Chloride (96-108) mmol/L Carbon Dioxide (22-29) mmol/L Anion Gap (12-20) BUN (9-16) mg/dL Creatinine (0.5-1.4) mg/dL Estim Creat Clear Calc Estimated GFR Random Glucose (60-115) mg/dL Lactic Acid 1.3 (0.5-2.0) mmol/L Calcium (8.4-10.2) mg/dL Magnesium (1.6-2.6) mg/dL Total Bilirubin (0.0-1.0) mg/dL AST (5-31) U/L ALT (0-31) U/L Alkaline Phosphatase (39-117) U/L Total Creatine Kinase 179 H (26-140) U/L Troponin I High Sens < 2.7 (<3.5-17.0) ng/L Total Protein (6.5-8.0) g/dL Albumin (3.5-5.0) g/dL TSH 0.98 COVID-19 (SEB) (Negative) COVID-19 Clin Com Influenza Type A (TROY) (Negative) Influenza Type B (TROY) (Negative) Influenza A & B Note Radiology Impression Discussion of test interpretation with radiology: I have reviewed the radiologist's reading. Discharge Plan Discharge Clinical Impression: Syncope Qualifiers: Syncope type: unspecified Qualified Code(s): R55 - Syncope and collapse Patient Disposition: Home, Self-Care Instructions: Syncope (ED) Prescriptions: No Action levothyroxine 100 mcg tablet 1 tab PO DAILY@0600 atnwytgxih-drqfkuvxbswwb-ykca [Fioricet] 50-300-40 mg capsule 1 cap PO Q6H PRN (Reason: Headache) Qty: 20 0RF naproxen 500 mg tablet 500 mg PO Q12H PRN (Reason: pain (scale score 1-3)) Qty: 20 0RF albuterol sulfate 90 mcg/actuation HFA aerosol inhaler 2 puff inhalation Q4H PRN (Reason: shortness of breath or wheezing) fluticasone propion-salmeterol [Advair Diskus] 500-50 mcg/dose Blister With Device 1 inh INHALATION BID metformin 500 mg Tablet Extended Release 24 Hr 500 mg PO BID prednisone 20 mg tablet 40 mg PO DAILY 5 Days Qty: 10 0RF prednisone 20 mg tablet See Rx Instructions .ROUTE .COMPLEX 9 Days Qty: 18 0RF Rx Instructions: 20 mg orally, Take 3 tablets for 3 days THEN; Take 2 tablets for 3 days THEN; Take 1 tablet for 3 days epinephrine [EpiPen] 0.3 mg/0.3 mL auto-injector 0.3 mg IM Q10M PRN (Reason: anaphylaxis) Qty: 2 0RF Rx Instructions: for 2 doses loratadine 10 mg tablet 10 mg PO DAILY Qty: 30 0RF cetirizine 10 mg tablet 10 mg PO .q8 PRN (Reason: allergy symptoms) Qty: 60 0RF famotidine [Acid Web Services Architect (famotidine)] 20 mg tablet 20 mg PO Q6H Qty: 30 0RF prednisone 50 mg tablet 50 mg PO DAILY 5 Days Qty: 5 0RF Interventions: ED Discharge Assessment Last Done: 01/06/25 01:36 Discharge Date/Time: 01/06/25 01:37 Print Language: Vietnamese
--- NOTE | 2025-01-05 16:17 | ECG_ITS ---
Test Reason : SYNCOPE Blood Pressure : */* mmHG Vent. Rate : 82 BPM Atrial Rate : 82 BPM P-R Int : 144 ms QRS Dur : 80 ms QT Int : 348 ms P-R-T Axes : 76 52 57 degrees QTcB Int : 406 ms Normal sinus rhythm Normal ECG When compared with ECG of 12-Apr-2024 19:32, Nonspecific T wave abnormality no longer evident in Inferior leads Referred By: Vernell Reilly Electronically Signed By: Bucky Oneal
--- NOTE | 2025-01-05 17:40 | PC.NURSE ---
Triage tech alerted this RN that pt was acting a little off while drawing blood, stating she was having another hot flash, which was what she stated happened earlier, tech reported she never stopped verbally responding or dazed off. Charge nurse made aware
--- NOTE | 2025-01-05 17:42 | MHC.EDTECH ---
pt a diffcult lab draw attempted two, pt on the lab chair stated she does not feel good. placed on wheelchair for safety. Charge aware also FIRE FIGHTER/ Rn of naeem notified
[2025-01-05 17:51] LABS: INTERNATIONAL NORM RATIO 1.0 (0.9-1.1); Prothrombin Time 11.7 SEC (10.9-12.4)
[2025-01-05 17:55] LABS: IDNOW Serial# 55D5AD1C; Influenza B2 Negative (Negative)
[2025-01-05 17:56] LABS: COVID-19 Test Negative (Negative); IDNOW Serial# 58CA691E
[2025-01-05 18:04] VITALS: BP 124/69; PULSE 70; RESP 18; O2SAT 96
--- OUTSIDE RECORDS SUMMARY | 2025-01-05 18:18 | XMS_ITS | Data Portability ---
Author Organization [place] - [facility], [facility] Address [address] [place] [address] Care Team Providers Care Planning Coordinator Name Role Phone ARUNA BERRY Primary Care [...] 4V bilat knee pain 2024 025 [email or web address] [employer] [facility] Office, [address], [facility] [address], [place], [address], 12/17/2024 16:04:25 Medication Orders Celebrex 200 mg capsule 2024 025 [email or web address] [id number], [address] [place] [address], [phone], 12/17/2024 16:04:25 Patient TargetsNo targets recorded. Patient InstructionsNo instructions recorded. Reason for Referral None Reported. Results Created Date Observation Date Name Description Value Unit Range Abnormal Flag Note LastModifiedBy Organization Detail LastModifiedTime 12/18/1912/17/2024 XR, knee, 4 or more view [email or web address] ?Encry pted=s hAaTro YD8dLq bEUv6g %2BXZw aYqtaq 0bqfl% 2Fg9IQ a4ajBk vP9nXo QUaueC m3YtLR FvZlgJ JJ8mAn HZtai3 4z9989 AC0Klb X2MUqW uKiQtr MwF INTERFACE [facility] [address] [facility], [place], [address], 12/17/2024 10:34:20 12/18/19 25 12/17/2024 XR, knee, 4 or more view [email or web address] ?Encry pted=s hAaTro YD8dLq bEUv6g %2BXZw aYqtaq 0bqfl% 2Fg9IQ a4ajBk vP9nXo QUaueC m3YtLR FvZlgJ JJ8mAn HZtai3 8z9569 AC0Klb X2MUqW uKiQtr MwF INTERFACE [facility] [address] [address], [place], [address], 12/17/2024 10:34:22 Result Notes Documentation Provider Name and Address Organization Details Recorded Time Xr, Knee, 4 Or More View : [email or web address] Encrypted=qnXsObqCB5gMtsB Uv6g%3OVMmaQsxng3dfet%2Fg 3HZd0zqOxsS6cKlGPfcvPu0Wp IZLvBfvEIM2wMaPLpfh29b745 1NU1TmwN8GCuFeYiOzwEyJ Not Available [facility] 12/17/2024 10:34: 21 Xr, Knee, 4 Or More View : [email or web address] Encrypted=xeWtUhkEU8dCeyO Uv6g%6ELSreWqrzz7ylcd%2Fg 7YQc0vxWltG8xXrZTokoUe1Gz POMbRigAQF9wOsEAaky69d798 8AF4GjoX7UEgDkPeThdRuC Not Available [facility] 12/17/2024 10:34: 22 Problems Name Problem SNOMED Code Status Onset Date Resolution Date Notes Provider Name and Address Organization Details Recorded Time Pain of right elbow joint 849294079932 01301 Active 2019 Problem Code: M25.521; Problem Code Type: ICD-10; Status: 'A'; Not Available [facility] 4 10:58:11 Osteoarth ritis of right knee joint 364937741122 100 Active 2024 Jose Alberto Tang MD [address] [place] [address] [address], [place], [address] , [facility] 5 07:49:07 Problem Notes None recorded. Medical Equipment None Reported. Allergies Allergen ID Allergen Name Allergen Category Reaction Reaction Severity Criticality Documentation Date Start Date Code Code System Note Provider Name and Address Organization Details Recorded Time 922555 Flagyl medicatio n Not available Not available Not available 12/17/202457041 6 RxNorm AIDEE land [facility] 5 10:22:57 60728 Product containin g penicilli n (product) medicatio n Not available Not available Not available 05/23/20232009 03516 8001 SNOMED Aller gyRea ction : 'Skin React ion'; Not Available [facility] 4 11:52:56 46958 peanut allergeni c extract food,medi cation Not available Not available Not available 05/23/20232012 11237 8 RxNorm Not Available [facility] 4 11:52:56 02094 latex environme nt,medica tion Not available Not available Not available 05/23/20232012 61303 91 RxNorm Not Available [facility] 4 11:52:56 Medications Name Sig Start Date Stop Date Status Note LastModified by Organization Details LastModified Time celecoxib 200 mg capsule TAKE 1 CAPSULE BY MOUTH EVERY DAY active Not Available Not Available No t Available fexofenadin e 60 mg tablet TAKE 1 TABLET BY MOUTH DAILY FOR 14 DAYS active Not Available Not Available No t Available cetirizine 10 mg tablet TAKE 1 TABLET BY MOUTH EVERY 8 HOURS NEEDED FOR ALLERGY SYMPTOMS active Not Available Not Available No t Available prednisone 20 mg tablet TAKE 2 TABLETS BY MOUTH DAILY FOR 5 DAYS active Not Available Not Available No t Available levothyroxi ne 100 mcg tablet TAKE 1 TABLET BY MOUTH DAILY active Not Available Not Available No t Available famotidine 20 mg tablet TAKE 1 TABLET BY MOUTH EVERY 6 HOURS active Not Available Not Available No t [...] TAKE 1 TABLET BY MOUTH DAILY FOR 5 DAYS active [...] Updated DateTime 12/17/2024 157.48 cm 46.1 kg/m2 525587.28 g AIDEE PETERSON [facility] 12/17/2024 10:22:46 Social History None recorded. Functional Status None recorded. Mental Status None recorded. Family History Nothing Reported. Medical History No medical history recorded. Gynecological HistoryNo gynecological history recorded. Obstetrics History GPAL:G 0 P 0 0 0 0 Past Encounters Encounter ID Performer Location Encounter Start Date Encounter Closed Date Diagnosis/Indication Diagnosis SNOMED-CT Code Diagnosis ICD10 Code Diagnosis IMO Codes Diagnosis Note [id number] [facility] [address] [place] [address] 12/17/2024 10:13:03 12/24/2024 12:18:17 Pain of bilateral knee regions 4092624430 37683 M25.561 M25.562 [id number] Health Concerns Section Related Observation LastModified by Organization Detai ls LastModified Time None Recorded Concern Status LastModified by Organization Details LastModified Time None Recorded Advance Directives Directive None Recorded Payers Insurance Date Sequence Insurance Name Policy Number Policy Aguayo Covered Member ID Aguayo Member ID Guarantor Name 12/17/2024 1 [place] [facility] Saumya Atkinson [id number] Saumya Atkinson 01/05/[address] [place] [address] [facility] (MEDICAID HMO) [id number] Saumya Atkinson [id number] Saumya Atkinson Notes Date Note Type Note [...] the past with minimal benefit. Takes anti-inflammatories fnuj-jkx-otqylaw but this does bother her stomach. Takes Tylenol.PMH/PSH/MEDS/AL L/FMH/SOC HX/ROS are reviewed in detail, updated and signed by me and located in the patient's chart.Of note: Is currently on the Mounjaro and has lost over 20 pounds in the last 3 weeks.General Exam: Vital signs are as noted belowMental status: Alert and lucid. Normal insight, affect and grooming.ASSET PROTECTION OFFICER: Gross motor coordination is intact. No spasticity [...] not worked well for her in the past.[facility] speech recognition radiology transcriptionist software was used to create portions of this document. An attempt at proofreading has been made to minimize errors. Please call for corrections. Manuel Khan PA-C [address] [facility] [address], [place], [address], [facility] 12/17/2024 12:27:31 OBGyn Episode No OBEpisode recorded.
[2025-01-05 18:19] LABS: Alanine Aminotransferase 43 U/L (0-31); Albumin Level 4.1 g/dL (3.5-5.0); Alkaline Phosphatase 89 U/L (39-117); Anion Gap 13 (12-20); Aspartate Amino Transferase 30 U/L (5-31); Blood Urea Nitrogen 10 mg/dL (9-16); Calcium 9.4 mg/dL (8.4-10.2); Carbon Dioxide 17 mmol/L (22-29); Chloride 112 mmol/L (96-108); Creatinine Clr Calc Pharmacy 103.6; Estimated Glomerular Filt Rate > 60; Magnesium 2.3 mg/dL (1.6-2.6); Potassium 4.0 mmol/L (3.3-5.1); Sodium 138 mmol/L (135-145); Total Protein 7.1 g/dL (6.5-8.0)
[2025-01-05 18:41] LABS: Troponin-I High Sensitivity < 2.7 ng/L (<3.5-17.0)
[2025-01-05 18:59] LABS: Hematocrit 44.8 % (37.0-47.0); Hemoglobin 14.2 g/dl (12.0-16.0); Imm Gran Abs Auto 0.04 X10*3/uL (0.00-0.03); Imm Gran Pct Auto 0.4 % (0.0-0.4); Lymphocytes Absolute Auto 1.7 X10*3/uL (1.2-4.9); Mean Corpuscular HGB Conc 31.7 g/dl (31.0-35.0); Mean Corpuscular Hemoglobin 25.2 pg (27.0-33.0); Mean Corpuscular Volume 79.6 fL (80.0-98.0); NRBC Abs Auto 0.000 X10*3/uL (0.0-0.012); NRBC Pct Auto 0.0 /100WBC (0.0-0.2); Platelet Count 408 X10*3/uL (160-400); Red Blood Count 5.63 X10*6/uL (4.20-5.50); White Blood Count 9.3 X10*3/uL (4.8-10.8)
[2025-01-05 20:14] LABS: D Dimer High Sensitivity 290 NG/ML
[2025-01-05 20:31] LABS: Venous Blood Gas Refer to POC result
[2025-01-05 20:50] LABS: Troponin-I High Sensitivity < 2.7 ng/L (<3.5-17.0)
[2025-01-05 22:51] VITALS: BP 137/74; PULSE 80; RESP 19; TEMP 36.6; O2SAT 95
[2025-01-05 23:45] VITALS: BP 126/75; PULSE 80
[2025-01-05 23:47] VITALS: BP 133/75; PULSE 87
[2025-01-05 23:49] VITALS: BP 127/80; PULSE 90
[2025-01-06 00:11] VITALS: BP 133/79; PULSE 89; RESP 18; TEMP 36.6; O2SAT 96
[2025-01-06 01:36] VITALS: BP 133/79; PULSE 89; RESP 18; TEMP 36.6; O2SAT 96
[2025-01-07 08:57] LABS: VBG HCO3 23 mmol/L (22-26); VBG O2 % Saturation 87.0 %
== END 2025-01-06 01:37 | disposition home or self-care (01) ==
PROVIDERS: Physician Assistant Medical; Registered Nurse Emergency; Emergency Provider Student in an Organized Health Care Education/Training Program; PCP Physician Assistant Medical
DX: R55 Syncope and collapse (principal); E11.9 Type 2 diabetes mellitus without complications; E66.01 Morbid (severe) obesity due to excess calories; Z68.41 Body mass index [BMI] 40.0-44.9, adult; F41.9 Anxiety disorder, unspecified; Z79.899 Other long term (current) drug therapy
CPT/HCPCS: 36415; 71275; 80053; 82550; 82803; 83605; 83735; 84443; 84484; 85025; 85379; 85610; 87502; 87635; 93005; 99285

== ENCOUNTER → 2025-01-05 16:17 | Outpatient (BNV) | payer OTHER, SELFPAY | PROVIDERS: Emergency Provider Student in an Organized Health Care Education/Training Program; PCP Physician Assistant Medical; Visit Provider Internal Medicine Cardiovascular Disease | DX: R55 Syncope and collapse (principal) | CPT/HCPCS: 93010 ==

== ENCOUNTER → 2025-01-05 20:38 | Outpatient (BNV) | payer OTHER, SELFPAY | PROVIDERS: Emergency Provider Student in an Organized Health Care Education/Training Program; PCP Physician Assistant Medical; Visit Provider Radiology Diagnostic Radiology | DX: R55 Syncope and collapse (principal); R79.89 Other specified abnormal findings of blood chemistry | CPT/HCPCS: 71275 ==